=== PATIENT | female | born 1965 | race Caucasian/White ===

== ENCOUNTER 2016-09-30 11:56 | Emergency (ER) | payer MEDICARE ==
[~2016-09-30] VITALS: Ht 162.6 cm; Wt 59.0 kg
[2016-09-30 12:04] VITALS: BP 125/73; PULSE 100; RESP 16; TEMP 97.7; O2SAT 96
--- NOTE | 2016-09-30 12:08 | PD ---
Physical Exam Time Seen by Provider: 12:07 Narrative 51 y/o female presents for evaluation of L foot/leg pain/swelling for the past few days. Denies sob, fevers, chills. Vital signs reviewed. Seen at triage desk. Awaiting bed placement. Data Data Last Documented VS Vital Signs Date Time Temp Pulse Resp B/P Pulse Ox O2 Delivery O2 Flow Rate FiO2 09/30/16 12:04 97.7 100 16 125/73 96 Room Air [facility] Medical Record Reviewed: Yes Supervised Visit with TERELL: Cedric Zeng September 30, 2016 12:08
[2016-09-30] MEDS ORDERED: HALD50IN IM (12:57)
[2016-09-30] MEDS ORDERED: LEXA10TA PO (12:57)
[2016-09-30] MEDS ORDERED: CLINDAMYCIN INJ 600 MG in SODIUM CHLORIDE 0.9% INJ 100 ML IV ONE (13:45)
--- NOTE | 2016-09-30 14:13 | RADRPT ---
EXAM DATE/TIME: 09/30/2016 13:57 [facility] COMPARISON: No previous studies available for comparison. INDICATIONS : Left leg swelling. MEDICAL HISTORY : Hypertension. SURGICAL HISTORY : None. ENCOUNTER: Initial ACUITY: 2 day PAIN SCORE: 0/10 LOCATION: Left leg. TECHNIQUE: Venous ultrasound of the leg was performed from the inguinal ligament to the proximal calf. Real-woody e, color Doppler and spectral tracing, compression and augmentation techniques were used. FINDINGS: There is normal compressibility of the deep venous system from the inguinal region to the proximal ca lf. No echogenic clot is seen in the lumen of the common femoral, femoral, popliteal, and posterior tibial veins. There is a normal response of the venous system to proximal and distal augmentation an d respiration. CONCLUSION: No DVT left leg. Donnie Robledo MD on September 30, 2016 at 14:11 Board Certified Radiologist. This report was verified electronically.
--- NOTE | 2016-09-30 14:23 | PD ---
HPI Chief Complaint: Edema Time Seen by Provider: 12:46 Travel History International Travel<30 days: No Contact w/Intl Traveler<30days: No Traveled to known affect area: No History of Present Illness HPI So 51 year-old woman presents to the emergency department complaining of left foot pain and swelling for the past several days. She's been walking a lot on it. She lives in [place] but states she staying with some man down her wishes no other houses. She's not had foot problems before. She been more painful red and swollen and so she came to the emergency department. No fevers or chills. No other complaints. History Past Medical History Tetanus Vaccination: Unknown Influenza Vaccination: No Past Surgical History Surgical History: No Previous Surgery Social History Alcohol Use: Yes (OCC) Tobacco Use: Yes (1/2PPD) Allergies-Medications (Allergen,Severity, Reaction): Coded Allergies: No Known Allergies (Unverified , 09/30/16) Reported Meds & Prescriptions Reported Meds & Active Scripts Active Reported Lexapro (Escitalopram Oxalate) 10 Mg Tab 10 Mg PO DAILY Haldol Decanoate Inj (Haloperidol Decanoate) 50 Mg/Ml Inj 50 Mg IM Q28D Review of Systems Except as stated in HPI: all other systems reviewed are Neg Physical Exam Narrative GENERAL: 51 year-old woman, no acute distress. SKIN: Warm and dry. CARDIOVASCULAR: Warm and well perfused. RESPIRATORY: Normal rate and effort. MUSCULOSKELETAL: Left foot is edematous and red with some tracking erythema up into the calf. On the sole of the foot there is a small blister with the ulceration in the skin's a little bit macerated near this ulceration. NEUROLOGICAL: Awake and alert. No gross deficits. Data Data Last Documented VS Vital Signs Date Time Temp Pulse Resp B/P Pulse Ox O2 Delivery O2 Flow Rate FiO2 09/30/16 12:45 Room Air 09/30/16 12:04 97.7 100 16 125/73 96 Orders Foot, Complete ([id number]) (09/30/16 ) Us Leg Venous Doppler (09/30/16 ) Complete Blood Count With Diff (09/30/16 13:36) Comprehensive Metabolic Panel (09/30/16 13:36) Iv Access Insert/Monitor (09/30/16 13:36) Clindamycin Inj (Cleocin Inj) (09/30/16 13:45) Westergren Sedimentation Rate (09/30/16 13:37) C-Reactive Protein (Crp) (09/30/16 14:15) Labs Laboratory Tests Test 09/30/16 14:15 White Blood Count 7.0 TH/MM3 Red Blood Count 3.98 MIL/MM3 Hemoglobin 12.4 GM/DL Hematocrit 37.3 % Mean Corpuscular Volume 93.7 FL Mean Corpuscular Hemoglobin 31.3 PG Mean Corpuscular Hemoglobin 33.4 % Concent Red Cell Distribution Width 13.6 % Platelet Count 320 TH/MM3 Mean Platelet Volume 7.0 FL Neutrophils (%) (Auto) 62.6 % Lymphocytes (%) (Auto) 23.2 % Monocytes (%) (Auto) 12.7 % Eosinophils (%) (Auto) 1.1 % Basophils (%) (Auto) 0.4 % Neutrophils # (Auto) 4.4 TH/MM3 Lymphocytes # (Auto) 1.6 TH/MM3 Monocytes # (Auto) 0.9 TH/MM3 Eosinophils # (Auto) 0.1 TH/MM3 Basophils # (Auto) 0.0 TH/MM3 CBC Comment DIFF FINAL Differential Comment Erythrocyte Sedimentation Rate 36 mm/hr Sodium Level 138 MEQ/L Potassium Level 3.7 MEQ/L Chloride Level 104 MEQ/L Carbon Dioxide Level 27.6 MEQ/L Anion Gap 6 MEQ/L Blood Urea Nitrogen 5 MG/DL Creatinine 0.58 MG/DL Estimat Glomerular Filtration 110 ML/MIN Rate Random Glucose 100 MG/DL Calcium Level 9.2 MG/DL Total Bilirubin 0.3 MG/DL Aspartate Amino Transf 21 U/L (AST/SGOT) Alanine Aminotransferase 56 U/L (ALT/SGPT) Alkaline Phosphatase 125 U/L C-Reactive Protein 2.14 MG/DL Total Protein 7.4 GM/DL Albumin 3.5 GM/DL [facility] Medical Decision Making Medical Screen Exam Complete: Yes Emergency Medical Condition: Yes Interpretation(s) LABS: CBC is unremarkable Sedimentation rate 36 CMP is unremarkable CRP 2.14 Ultrasound negative My review of foot x-ray: Negative Differential Diagnosis Cellulitis, DVT, osteomyelitis, other Narrative Course Medical decision making This is a 51 year-old woman presents emergency department for left foot pain swelling and redness streaking up into the leg some. She looks disheveled homeless but she states she has a place to stay. She'll need to keep this leg elevated if she is discharged for outpatient therapy. She states that she is able to do this and can keep it elevated for the next 48 hours without difficulty. We'll check x-ray, labs, rule out DVT, reassess. Diagnosis Primary Impression: Left leg cellulitis Additional Instructions: Take antibiotics as prescribed. Keep your leg elevated above your heart for at least 48 hours. Take Naprosyn as needed for pain. Return to the emergency department for any new or worsening symptoms. Med/Other Pt SpecificInfo: Prescription(s) given Scripts Sulfamethoxazole-Trimethoprim (Bactrim DS)800-160 Mg Tab1 Tab PO BID #20 TAB Ref 0 Prov:Pedro Hull MD 09/30/16 Cephalexin (Keflex)500 Mg [id number] Mg PO Q8H #30 CAP Ref 0 Prov:Pedro Hull MD 09/30/16 Disposition: 01 DISCHARGE HOME Condition: Stable Pedro Hull MD September 30, 2016 14:23
[2016-09-30 14:31] LABS: AUTOMATED NEUTROPHIL # 4.4 TH/MM3 (1.8-7.7); BASOPHIL % 0.4 % (0.0-2.0); EOSINOPHIL # 0.1 TH/MM3 (0-0.4); EOSINOPHIL % 1.1 % (0.0-4.0); HEMATOCRIT 37.3 % (35.0-46.0); HEMO FLAGS DIFF FINAL; LYMPH % 23.2 % (9.0-44.0); LYMPHOCYTE # 1.6 TH/MM3 (1.0-4.8); MEAN CELL VOLUME 93.7 FL (80.0-100.0); MEAN CORPUSCULAR HEMOGLOBIN 31.3 PG (27.0-34.0); MEAN CORPUSCULAR HGB CONC 33.4 % (32.0-36.0); MONO % 12.7 % (0.0-8.0); NEUT % 62.6 % (16.0-70.0); PLATELET COUNT 320 TH/MM3 (150-450); RED BLOOD COUNT 3.98 MIL/MM3 (4.00-5.30); RED CELL DISTRIBUTION WIDTH 13.6 % (11.6-17.2)
[2016-09-30 14:46] LABS: ALT (GPT) 56 U/L (10-53); ANION GAP 6 MEQ/L (5-15); AST (GOT) 21 U/L (15-37); BICARBONATE 27.6 MEQ/L (21.0-32.0); BLOOD UREA NITROGEN 5 MG/DL (7-18); CHLORIDE 104 MEQ/L (98-107); GLOMERULAR FILTRATION RATE 110 ML/MIN (>89); POTASSIUM 3.7 MEQ/L (3.5-5.1); SODIUM (NA) 138 MEQ/L (136-145)
[2016-09-30 14:49] LABS: ALKALINE PHOSPHATASE 125 U/L (45-117); TOTAL BILIRUBIN ADULT 0.3 MG/DL (0.2-1.0)
[2016-09-30] MEDS ORDERED: CEPH-460 PO (15:26)
[2016-09-30] MEDS ORDERED: BACT800T5 PO (15:26)
--- NOTE | 2016-09-30 15:32 | RADRPT ---
EXAM DATE/TIME: 09/30/2016 14:27 [facility] COMPARISON: No previous studies available for comparison. INDICATIONS : Left foot swelling for 2 days. MEDICAL HISTORY : Hypertension. SURGICAL HISTORY : None. ENCOUNTER: Initial ACUITY: 2 days PAIN SCORE: 3/10 LOCATION: Left foot. FINDINGS: 3 views of the foot reveal a 1 x 3 mm radiopaque density consistent with the history of a shell. This is either on the skin surface or immediately deep to the skin surface within the plantar soft tissue s at the level of the midfoot. It is only seen on the lateral projection. No definitive correlate on the frontal views. No fracture or dislocation. No air within the soft tissues. Dorsal soft tissue swe lling noted. CONCLUSION: Tiny radiopaque foreign body within the superficial subcutaneous tissues of the plantar soft tissues. Dorsal soft tissue swelling. Curt Das Jr., MD on September 30, 2016 at 15:27 Board Certified Radiologist. This report was verified electronically.
== END 2016-09-30 16:50 | disposition home or self-care (01) ==
LOC: NEPD 11:56
DX: L03.116 Cellulitis of left lower limb (principal); F17.210 Nicotine dependence, cigarettes, uncomplicated
CPT/HCPCS: 73630; 80053; 85025; 85652; 86140; 93971; 96365

== ENCOUNTER 2016-10-01 00:52 | Emergency (ER) | payer MEDICARE ==
[~2016-10-01] VITALS: Ht 162.6 cm; Wt 60.0 kg
[~2016-10-01 00:52] MED LIST: BACT800T5 PO; CEPH-460 PO; HALD50IN IM; LEXA10TA PO
[2016-10-01 00:54] VITALS: BP 138/79; PULSE 84; RESP 16; TEMP 98.2; O2SAT 97
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
[2016-10-01] MEDS ORDERED: SULFAMETHOXAZOLE-TRIMETHOPRIM DS 800-160 MG TAB PO ONE (01:15)
[2016-10-01] MEDS ORDERED: CEPHALEXIN MONOHYDRATE 500 MG CAP PO ONE (01:15)
== END 2016-10-01 01:29 | disposition home or self-care (01) ==
LOC: NEPK 00:52
DX: L03.116 Cellulitis of left lower limb (principal); M54.9 Dorsalgia, unspecified; I10 Essential (primary) hypertension; F17.200 Nicotine dependence, unspecified, uncomplicated; Z76.5 Malingerer [conscious simulation]; Z86.59 Personal history of other mental and behavioral disorders
CPT/HCPCS: 99283

== ENCOUNTER 2016-11-03 17:10 | Emergency (ER) | payer MEDICARE ==
[~2016-11-03] VITALS: Ht 165.1 cm; Wt 60.0 kg
[2016-11-03 17:14] VITALS: BP 146/72; PULSE 98; RESP 16; TEMP 98.6; O2SAT 98
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
[2016-11-03 21:04] VITALS: BP 137/78; PULSE 100; RESP 18; O2SAT 97; O2SAT 98
[2016-11-03] MEDS ORDERED: CEPH-460 PO (21:11)
[2016-11-03] MEDS ORDERED: BACT800T5 PO (21:11)
[2016-11-03] MEDS ORDERED: SULFAMETHOXAZOLE-TRIMETHOPRIM DS 800-160 MG TAB PO ONE (21:15)
[2016-11-03] MEDS ORDERED: ceFAZolin 2 GM PREMIX 50 ML IV ONE (21:15)
[2016-11-03] MEDS ORDERED: DIPHTH/TETANUS/ACEL PERTUSSIS (BOOSTER) 0.5 ML VIAL/PFS IM ONE (21:15)
[2016-11-03] MEDS ORDERED: SODIUM CHLOR 0.9% 1000 ML INJ 1,000 ML IV ONE (21:15)
[2016-11-03 21:41] LABS: AUTOMATED NEUTROPHIL # 3.4 TH/MM3 (1.8-7.7); BASOPHIL % 0.6 % (0.0-2.0); EOSINOPHIL # 0.1 TH/MM3 (0-0.4); EOSINOPHIL % 2.1 % (0.0-4.0); LYMPH % 24.8 % (9.0-44.0); LYMPHOCYTE # 1.4 TH/MM3 (1.0-4.8); MEAN CELL VOLUME 91.1 FL (80.0-100.0); MEAN CORPUSCULAR HEMOGLOBIN 31.3 PG (27.0-34.0); MEAN CORPUSCULAR HGB CONC 34.4 % (32.0-36.0); MONO % 13.8 % (0.0-8.0); NEUT % 58.7 % (16.0-70.0); PLATELET COUNT 297 TH/MM3 (150-450); RED BLOOD COUNT 3.84 MIL/MM3 (4.00-5.30); RED CELL DISTRIBUTION WIDTH 13.6 % (11.6-17.2); WHITE BLOOD COUNT 5.7 TH/MM3 (4.0-11.0)
[2016-11-03 21:47] LABS: HEMO FLAGS AUTO DIFF
[2016-11-03 22:01] LABS: ALT (GPT) 36 U/L (10-53); ANION GAP 8 MEQ/L (5-15); AST (GOT) 18 U/L (15-37); BICARBONATE 24.6 MEQ/L (21.0-32.0); BLOOD UREA NITROGEN 5 MG/DL (7-18); CHLORIDE 106 MEQ/L (98-107); GLOMERULAR FILTRATION RATE 95 ML/MIN (>89); POTASSIUM 3.4 MEQ/L (3.5-5.1); SODIUM (NA) 139 MEQ/L (136-145)
[2016-11-03 22:11] LABS: ALKALINE PHOSPHATASE 105 U/L (45-117); TOTAL BILIRUBIN ADULT 0.2 MG/DL (0.2-1.0)
[2016-11-03 22:34] LABS: EOSINOPHILS 5 % (0-4); METAMYELOCYTES 2 % (0-1); MYELOCYTES 1 % (0-0); NEUTROPHIL # MANUAL DIFF 3.6 TH/MM3 (1.8-7.7); POLYS (SEG NEUTROPHILS) 61 % (16-70); WBC DIFF SAMPLE 100
[2016-11-03 22:35] LABS: OVALOCYTES 1+ (NORMAL)
[2016-11-03 22:36] LABS: PLATELET ESTIMATE SMEAR NORMAL (NORMAL); PLATELET MORPHOLOGY NORMAL (NORMAL); SCAN/DIFF FINAL DIFF MANUAL
== END 2016-11-03 23:15 | disposition home or self-care (01) ==
LOC: NEPC 17:10
DX: R60.0 Localized edema (principal); L03.115 Cellulitis of right lower limb; I10 Essential (primary) hypertension; F17.210 Nicotine dependence, cigarettes, uncomplicated; R00.0 Tachycardia, unspecified; L55.0 Sunburn of first degree; Z59.0 Homelessness; Z23 Encounter for immunization
CPT/HCPCS: 80053; 83880; 84443; 85007; 85027; 86140; 90471; 90715; 96365; 99284; J0690; J7030

== ENCOUNTER 2016-11-17 11:42 | Emergency (ER) | payer MEDICARE ==
[~2016-11-17] VITALS: Ht 162.6 cm; Wt 65.0 kg
[~2016-11-17 11:42] MED LIST changes: -LEXA10TA PO
[2016-11-17 11:47] VITALS: BP 134/62; PULSE 89; RESP 16; TEMP 98.6; O2SAT 98
--- NOTE | 2016-11-17 12:23 | PD ---
HPI Chief Complaint: Medication Refill Request Time Seen by Provider: 12:19 Travel History International Travel<30 days: No Contact w/Intl Traveler<30days: No Traveled to known affect area: No History of Present Illness HPI 51-year-old female with history of bipolar and schizophrenia presents the emergency department requesting refills of her medications. Patient is requesting refills of her Lexapro 10 mg daily, and her once monthly 50 mg Haldol dose IM. She is also requesting prescriptions for Keflex and Bactrim which she was given at her last visit on October 29. She states she lost her prescriptions at that time for the cellulitis in her lower extremities. She states it hasn't really gotten worse or better. She is also requesting a refill on her Xanax for her anxiety. Patient is homeless, and used to see a psychiatrist in [place]. He is not established with a local primary care physician or psychiatrist as previously instructed to her last visit. She states she lost the information for the primary care office. She states no other acute medical issues. She has no known drug allergies. PFSH Past Medical History Bipolar Disorder: Yes Anxiety: Yes Depression: Yes Diminished Hearing: No Hypertension: Yes Psychiatric: Yes Immunizations Current: No Menopausal: Yes Social History Alcohol Use: Yes (OCC) Tobacco Use: Yes (one pack per day) Substance Use: No Allergies-Medications (Allergen,Severity, Reaction): Coded Allergies: No Known Allergies (Unverified , 11/03/16) Reported Meds & Prescriptions Reported Meds & Active Scripts Active Keflex (Cephalexin) 500 Mg Cap 500 Mg PO Q8H Bactrim DS (Sulfamethoxazole-Trimethoprim) 800-160 Mg Tab 1 Tab PO BID Reported Haldol Decanoate Inj (Haloperidol Decanoate) 50 Mg/Ml Inj 50 Mg IM Q28D Review of Systems Except as stated in HPI: all other systems reviewed are Neg General / Constitutional: No: Fever Eyes: No: Visual changes HENT: No: Headaches Cardiovascular: No: Chest Pain or Discomfort Respiratory: No: Shortness of Breath Gastrointestinal: No: Abdominal Pain Genitourinary: No: Dysuria Musculoskeletal: No: Pain Skin: No Rash Neurologic: No: Weakness Psychiatric: Positive: Anxiety, Depression, Mood Disorder, No: Suicidal Ideations, Homicidal Ideation Endocrine: No: Polydipsia Hematologic/Lymphatic: No: Easy Bruising Physical Exam Narrative GENERAL: Patient appears in no acute distress and is pleasant. SKIN: Warm and dry. Normal color. Normal turgor. Both lower extremities show some mild erythema which appears consistent with sun exposure. He is however somewhat tender and warm to touch. No other focal areas of infection are noted distal time. HEAD: Atraumatic. Normocephalic. EYES: Pupils equal and round. No scleral icterus. No injection or drainage. ENT: No nasal bleeding or discharge. Mucous membranes pink and moist. Pharynx is clear. Airway is patent NECK: Trachea midline. Supple nontender. CARDIOVASCULAR: Regular rate and rhythm. RESPIRATORY: No accessory muscle use. Clear to auscultation. Breath sounds equal bilaterally. MUSCULOSKELETAL: Extremities without clubbing, cyanosis, or edema. No obvious deformities. NEUROLOGICAL: Awake and alert. No obvious cranial nerve deficits. Motor grossly within normal limits. Five out of 5 muscle strength in the arms and legs. Normal speech. PSYCHIATRIC: Appropriate mood and affect; insight and judgment normal. Data Data Last Documented VS Vital Signs Date Time Temp Pulse Resp B/P Pulse Ox O2 Delivery O2 Flow Rate FiO2 11/17/16 11:47 98.6 89 16 134/62 98 MDM Medical Decision Making Medical Screen Exam Complete: Yes Emergency Medical Condition: Yes Medical Record Reviewed: Yes Differential Diagnosis Lower extremity cellulitis. Bipolar disorder. Schizophrenia. Medication refill. Narrative Course Patient's medically stable at time of exam. Patient is given a prescription for Bactrim DS twice a day 7 days as well as Keflex 500 mg 3 times a day 7 days. He agreed to refill the patient's Lexapro 10 mg daily. Patient will have to follow up with local primary care physician for her Xanax or Haldol injection. Information for local primary care physician is given. Patient can follow-up here if worsening symptoms develop as needed. Diagnosis Primary Impression: Cellulitis Qualified Code: L03.90 - Cellulitis, unspecified cellulitis site Additional Impression: Mood disorder Referrals: [facility] (Out patient) [facility] Patient Instructions: Cellulitis (DC), General Instructions Additional Instructions: Patient is given a prescription for Bactrim DS twice a day 7 days as well as Keflex 500 mg 3 times a day 7 days. He agreed to refill the patient's Lexapro 10 mg daily. Patient will have to follow up with local primary care physician for her Xanax or Haldol injection. Information for local primary care physician is given. Patient can follow-up here if worsening symptoms develop as needed. Med/Other Pt SpecificInfo: Prescription(s) given Disposition: 01 DISCHARGE HOME Condition: Stable Joseph Florence Nov 17, 2016 12:23
[2016-11-17] MEDS ORDERED: BACT800T5 PO (12:24)
[2016-11-17] MEDS ORDERED: CEPH-460 PO (12:24)
[2016-11-17] MEDS ORDERED: LEXA10TA PO (12:24)
== END 2016-11-17 12:36 | disposition left against medical advice (07) ==
LOC: NEPK 11:42
DX: L03.116 Cellulitis of left lower limb (principal); L03.115 Cellulitis of right lower limb; F31.9 Bipolar disorder, unspecified; F17.210 Nicotine dependence, cigarettes, uncomplicated; I10 Essential (primary) hypertension; Z59.0 Homelessness
CPT/HCPCS: 99281

== ENCOUNTER 2016-11-27 02:12 | Emergency (ER) | payer MEDICARE ==
[~2016-11-27] VITALS: Ht 162.6 cm; Wt 65.0 kg
[~2016-11-27 02:12] MED LIST changes: +LEXA10TA PO
[2016-11-27 02:14] VITALS: BP 151/72; PULSE 100; RESP 16; TEMP 98.7; O2SAT 96
--- NOTE | 2016-11-27 02:59 | PD ---
HPI Chief Complaint: Skin Problem Time Seen by Provider: 02:55 Travel History International Travel<30 days: No Contact w/Intl Traveler<30days: No Traveled to known affect area: No History of Present Illness HPI 51-year-old white female presents to emergency department by EMS with complaints of possible cellulitis to her left foot. She states that she has had in the past. She denies any fever chills. No discharge. Pain is mild. No alleviating factors. PFSH Past Medical History Bipolar Disorder: Yes Anxiety: Yes Depression: Yes Diminished Hearing: No Hypertension: Yes Psychiatric: Yes Immunizations Current: No ?: Not Menopausal: Yes Social History Alcohol Use: Yes (OCC) Tobacco Use: Yes (one pack per day) Substance Use: No Allergies-Medications (Allergen,Severity, Reaction): Coded Allergies: No Known Allergies (Unverified , 11/27/16) Reported Meds & Prescriptions Reported Meds & Active Scripts Active Lexapro (Escitalopram Oxalate) 10 Mg Tab 10 Mg PO DAILY Keflex (Cephalexin) 500 Mg Cap 500 Mg PO Q8H Bactrim DS (Sulfamethoxazole-Trimethoprim) 800-160 Mg Tab 1 Tab PO BID Reported Haldol Decanoate Inj (Haloperidol Decanoate) 50 Mg/Ml Inj 50 Mg IM Q28D Review of Systems Except as stated in HPI: all other systems reviewed are Neg Physical Exam Narrative GENERAL: This is a well-nourished, well-developed patient, in no apparent distress. SKIN: No rashes, ecchymoses or lesions. Warm and dry. HEAD: Atraumatic. Normocephalic. EYES: PERRL, EOMI, no discharge or injection. No scleral icterus. EARS: Clear NOSE: Nasal turbinates appear normal. THROAT: Mucosa pink and moist. Airway patent. NECK: Trachea midline. supple, moves head freely. LUNGS: Clear to auscultation. CV: Regular in rhythm. ABDOMEN: Soft nontender. EXT: No clubbing cyanosis or edema. There is a mild scaly dermatitis between her toes but nothing on the dorsum of her feet. Data Data Last Documented VS Vital Signs Date Time Temp Pulse Resp B/P Pulse Ox O2 Delivery O2 Flow Rate FiO2 11/27/16 02:14 98.7 100 16 151/72 96 Room Air MDM Medical Decision Making Medical Screen Exam Complete: Yes Emergency Medical Condition: Yes Medical Record Reviewed: Yes Differential Diagnosis MDM: High Differential diagnoses: Abscess, folliculitis, cellulitis, lymphangitis, abrasion, contact dermatitis, tinea Narrative Course This is a 51-year-old white female who is been here in the emergency department on 2 prior occasions with complaints of cellulitis. There has not been any obvious clinical or laboratory findings consistent with cellulitis on her 2 visits. A discussion with the nurse indicates that the patient had informed the triage nurse that she is actually looking for a place to sleep she is currently homeless. She also was hoping to get medications filled and something to eat. Diagnosis Primary Impression: tinea pedis Additional Impression: Malingering Patient Instructions: General Instructions Additional Instructions: Rest. Elevation. Lamisil AT Tylenol or Advil for pain. Follow-up with a medical doctor in 1-to 2 weeks. Med/Other Pt SpecificInfo: Wound Care Disposition: 01 DISCHARGE HOME Condition: Stable Taj Anderson Nov 27, 2016 02:59
== END 2016-11-27 03:02 | disposition home or self-care (01) ==
LOC: NEPD 02:12
DX: B35.3 Tinea pedis (principal); F31.9 Bipolar disorder, unspecified; F41.9 Anxiety disorder, unspecified; I10 Essential (primary) hypertension; F17.200 Nicotine dependence, unspecified, uncomplicated; Z76.5 Malingerer [conscious simulation]; Z59.0 Homelessness; Z79.899 Other long term (current) drug therapy
CPT/HCPCS: 99283

== ENCOUNTER 2017-02-11 10:33 | Emergency (ER) | payer MEDICARE, OTHER ==
[~2017-02-11] VITALS: Ht 162.6 cm; Wt 79.0 kg
[2017-02-11 10:34] VITALS: BP 136/73; PULSE 95; RESP 20; TEMP 99.2; O2SAT 98
[2017-02-11] MEDS ORDERED: VIST25CA PO (10:55)
--- NOTE | 2017-02-11 10:56 | PD ---
HPI Chief Complaint: Skin Problem Time Seen by Provider: 10:48 Travel History International Travel<30 days: No Contact w/Intl Traveler<30days: No Traveled to known affect area: No History of Present Illness HPI The patient is a 52-year-old female who presents to the emergency department for bedbug bites. The patient states she noticed several bites 2 days ago upon wakening on a friend's couch. The patient states that over the last 2 mornings when she awakens in the morning she notices more bites on the arms and legs. The bites mostly spare the area where she wears shorts and a T- shirt while sleeping. She does note the bites are somewhat pruritic. The patient states her roommate sleeps on a bed and does not have any similar bites. She denies any other exposure to possible bites except for mosquitoes. She denies taking any new medications. She denies any shortness of breath, tongue swelling, lip swelling, wheezing, nausea, or vomiting. Symptoms are mild , possibly exacerbated after exposure to bedbug bites, and there are no current alleviating factors. PFSH Past Medical History Bipolar Disorder: Yes Anxiety: Yes Depression: Yes Diminished Hearing: No Hypertension: Yes Psychiatric: Yes Immunizations Current: No Tetanus Vaccination: < 5 Years Influenza Vaccination: No ?: Not Menopausal: Yes Past Surgical History Surgical History: No Previous Surgery Social History Alcohol Use: Yes (OCC) Tobacco Use: Yes (one pack per day) Substance Use: No (pt denies) Allergies-Medications (Allergen,Severity, Reaction): Coded Allergies: No Known Allergies (Unverified , 02/11/17) Reported Meds & Prescriptions Reported Meds & Active Scripts Active Reported Haldol Decanoate Inj (Haloperidol Decanoate) 50 Mg/Ml Inj 50 Mg IM Q28D Review of Systems Except as stated in HPI: all other systems reviewed are Neg General / Constitutional: No: Fever HENT: No: Lightheadedness Respiratory: No: Shortness of Breath Gastrointestinal: No: Nausea, Vomiting Skin: Positive Rash, Positive Itching Physical Exam Narrative GENERAL: Awake, alert, pleasant 52-year-old female who appears her stated age and is in no acute respiratory distress. SKIN: Focused skin assessment warm/dry. Patient has multiple erythematous maculopapular lesions noticed on the extensor surface of the arms, back, and legs. There is mostly sparing of the chest wall and inguinal region, however, there are a few bites noted on the buttocks. The exam was performed in the presence of a female nurse. HEAD: Atraumatic. Normocephalic. EYES: Pupils equal and round. No scleral icterus. No injection or drainage. ENT: No nasal bleeding or discharge. Mucous membranes pink and moist. NECK: Trachea midline. No JVD. MUSCULOSKELETAL: No obvious deformities. No clubbing. No cyanosis. No edema. NEUROLOGICAL: Awake and alert. No obvious cranial nerve deficits. Motor grossly within normal limits. Normal speech. PSYCHIATRIC: Appropriate mood and affect; insight and judgment normal. Data Data Last Documented VS Vital Signs Date Time Temp Pulse Resp B/P (MAP) Pulse Ox O2 Delivery O2 Flow Rate FiO2 02/11/17 10:42 89 16 02/11/17 10:34 99.2 136/73 (94) 98 Room Air MDM Medical Decision Making Medical Screen Exam Complete: Yes Emergency Medical Condition: Yes Medical Record Reviewed: Yes Differential Diagnosis Differential diagnosis includes bedbug bites, mosquito bites, allergic reaction , uric area, dermatitis. Narrative Course The patient states that she has had exposure to a bedbug bites, her exam would be consistent with possible bedbug bites. She is advised to have the landlord have an cyber systems engineer come and evaluate her apartment. The patient will be prescribed Vistaril as needed for itching. She is stable for outpatient follow- up. Diagnosis Primary Impression: Bedbug bite Qualified Codes: W57.XXXA - Bitten or stung by nonvenomous insect and other nonvenomous arthropods, initial encounter Patient Instructions: General Instructions Additional Instructions: Vistaril as needed for itching. Have an cyber systems engineer evaluate the apartment. Monitor for secondary signs of infection. Med/Other Pt SpecificInfo: Prescription(s) given Scripts Hydroxyzine Pamoate (Vistaril) 25 Mg Cap 25 MG PO Q6H Y for ITCHING, #20 CAP 0 Refills Prov: Kar Carvalho MD 02/11/17 Disposition: 01 DISCHARGE HOME Condition: Stable Kar Carvalho MD Feb 11, 2017 10:56
[2017-02-11 11:00] VITALS: BP 120/77; TEMP 97.8
[2017-02-11] MEDS ORDERED: hydrOXYzine PAMOATE 25 MG CAP PO ONE (11:00)
== END 2017-02-11 11:00 | disposition home or self-care (01) ==
LOC: NEPD 10:33
DX: S40.862A Insect bite (nonvenomous) of left upper arm, initial encounter (principal); S40.861A Insect bite (nonvenomous) of right upper arm, initial encounter; S80.862A Insect bite (nonvenomous), left lower leg, initial encounter; S80.861A Insect bite (nonvenomous), right lower leg, initial encounter; S30.860A Insect bite (nonvenomous) of lower back and pelvis, initial encounter; F31.9 Bipolar disorder, unspecified; I10 Essential (primary) hypertension; F17.200 Nicotine dependence, unspecified, uncomplicated; W57.XXXA Bitten or stung by nonvenomous insect and other nonvenomous arthropods, initial encounter
CPT/HCPCS: 99283; Q0177

== ENCOUNTER 2017-08-07 04:44 | Inpatient (IN) | payer MEDICARE, OTHER ==
[~2017-08-07] VITALS: Ht 162.6 cm; Wt 53.6 kg
[~2017-08-07 04:44] MED LIST changes: -BACT800T5 PO; -CEPH-460 PO; -LEXA10TA PO; +VIST25CA PO
[2017-08-07 04:56] VITALS: BP 131/68; PULSE 120; RESP 17; TEMP 98.5; O2SAT 98
[2017-08-07] MEDS ORDERED: SODIUM CHLOR 0.9% 1000 ML INJ 1,000 ML IV ONE ×4 (05:00→08:30)
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
[2017-08-07 05:18] LABS: HEMATOCRIT 49.4 % (35.0-46.0); HEMOGLOBIN 17.1 GM/DL (11.6-15.3); MEAN CELL VOLUME 89.8 FL (80.0-100.0); MEAN CORPUSCULAR HEMOGLOBIN 31.2 PG (27.0-34.0); MEAN CORPUSCULAR HGB CONC 34.7 % (32.0-36.0); MEAN PLATELET VOLUME 8.2 FL (7.0-11.0); PLATELET COUNT 301 TH/MM3 (150-450); RED CELL DISTRIBUTION WIDTH 13.1 % (11.6-17.2); WHITE BLOOD COUNT 28.8 TH/MM3 (4.0-11.0)
[2017-08-07 05:45] LABS: ALBUMIN 3.9 GM/DL (3.4-5.0); ALKALINE PHOSPHATASE 105 U/L (45-117); ALT (GPT) 23 U/L (10-53); AST (GOT) 27 U/L (15-37); BICARBONATE 23.2 MEQ/L (21.0-32.0); BLOOD UREA NITROGEN 9 MG/DL (7-18); CALCIUM 9.8 MG/DL (8.5-10.1); CHLORIDE 97 MEQ/L (98-107); GLOMERULAR FILTRATION RATE 30 ML/MIN (>89); GLUCOSE,RANDOM 148 MG/DL (74-106); SODIUM (NA) 136 MEQ/L (136-145); TOTAL BILIRUBIN ADULT 0.7 MG/DL (0.2-1.0); TOTAL PROTEIN 7.9 GM/DL (6.4-8.2)
[2017-08-07] MEDS ORDERED: POTASSIUM CHLORIDE 20 MEQ CONTROLLED RELEASE TAB PO ONE (06:00)
[2017-08-07 06:10] LABS: BANDS 17 % (0-6); LYMPHOCYTES 3 % (9-44); METAMYELOCYTES 2 % (0-1); MONOCYTES 7 % (0-8); NEUTROPHIL # MANUAL DIFF 25.9 TH/MM3 (1.8-7.7); POLYS (SEG NEUTROPHILS) 71 % (16-70); TOXIC VACUOLATION PRESENT (NONE SEEN)
[2017-08-07 06:11] LABS: OVALOCYTES 1+ (NORMAL)
[2017-08-07 07:00] VITALS: BP 145/71; PULSE 95; RESP 16; TEMP 98.4; O2SAT 99
[2017-08-07] MEDS ORDERED: cefTRIAXone INJ 1,000 MG in SODIUM CHLORIDE 0.9% INJ 100 ML IV ONE (07:00)
[2017-08-07 08:43] LABS: BACTERIA, URINE RARE /hpf; BILIRUBIN, URINE NEG (NEG); BLOOD, URINE NEG (NEG); GLUCOSE,URINE NEG (NEG); KETONE, URINE 10 mg/dL (NEG); NITRITE,URINE NEG (NEG); PH, URINE 6.5 (5.0-8.5); SQUAMOUS EPITHELIAL CELL URINE 3 /hpf (0-5); URINE COLOR LIGHT-YELLOW (YELLW/STRAW); URINE LEUKOCYTE ESTERASE NEG (NEG)
[2017-08-07 09:46] LABS: AUTOMATED NEUTROPHIL # 13.8 TH/MM3 (1.8-7.7); BASOPHIL # 0.1 TH/MM3 (0-0.2); BASOPHIL % 0.8 % (0.0-2.0); EOSINOPHIL % 0.1 % (0.0-4.0); HEMATOCRIT 40.1 % (35.0-46.0); LYMPH % 3.6 % (9.0-44.0); LYMPHOCYTE # 0.5 TH/MM3 (1.0-4.8); MEAN CORPUSCULAR HGB CONC 34.8 % (32.0-36.0); MEAN PLATELET VOLUME 7.9 FL (7.0-11.0); MONOCYTE # 0.9 TH/MM3 (0-0.9); NEUT % 89.5 % (16.0-70.0); PLATELET COUNT 213 TH/MM3 (150-450); RED BLOOD COUNT 4.51 MIL/MM3 (4.00-5.30); RED CELL DISTRIBUTION WIDTH 12.9 % (11.6-17.2); WHITE BLOOD COUNT 15.4 TH/MM3 (4.0-11.0)
[2017-08-07 10:24] LABS: BANDS 7 % (0-6); LYMPHOCYTES 9 % (9-44); MONOCYTES 7 % (0-8); MYELOCYTES 1 % (0-0); NEUTROPHIL # MANUAL DIFF 12.9 TH/MM3 (1.8-7.7); POLYS (SEG NEUTROPHILS) 76 % (16-70)
--- NOTE | 2017-08-07 10:24 | PD ---
Physical Exam Date Seen by Provider: Aug 07, 2017 Time Seen by Provider: 10:22 Narrative I assumed care of this 52-year-old female changes shift at 0700 hrs. from Amrik Sellers PA-C. Please see his history and physical for review of history. Data Data Last Documented VS Vital Signs Date Time Temp Pulse Resp B/P (MAP) Pulse Ox O2 Delivery O2 Flow Rate FiO2 08/07/17 16:00 98.6 08/07/17 15:10 92 18 97 Room Air Orders Orders Complete Blood Count With Diff (08/07/17 04:57) Comprehensive Metabolic Panel (08/07/17 04:57) Thyroid Stimulating Hormone (08/07/17 04:57) Urinalysis - C+S If Indicated (08/07/17 04:57) Iv Access Insert/Monitor (08/07/17 04:57) Psych Screen (08/07/17 04:57) Drug Screen, Random Urine (08/07/17 04:57) Alcohol (Ethanol) (08/07/17 04:57) Sodium Chlor 0.9% 1000 Ml Inj (Ns 1000 M (08/07/17 05:00) Lactic Acid (08/07/17 05:50) Potassium Chloride (Kcl) (08/07/17 06:00) Sodium Chlor 0.9% 1000 Ml Inj (Ns 1000 M (08/07/17 07:00) Ceftriaxone Inj (Rocephin Inj) (08/07/17 07:00) Blood Culture (08/07/17 06:47) Cath For Specimen (08/07/17 06:47) Lactic Acid (08/07/17 09:00) Complete Blood Count With Diff (08/07/17 09:00) Sodium Chlor 0.9% 1000 Ml Inj (Ns 1000 M (08/07/17 07:00) Diet Regular Basic (08/07/17 Breakfast) Sodium Chlor 0.9% 1000 Ml Inj (Ns 1000 M (08/07/17 08:30) Ct Brain W/O Iv Contrast(Rout) (08/07/17 12:52) Ammonia (08/07/17 12:52) Comprehensive Metabolic Panel (08/07/17 14:53) Diet Regular Basic (08/07/17 Dinner) Lactulose Liq (Lactulose Liq) (08/07/17 16:00) Labs Laboratory Tests Test 08/07/17 05:10 08/07/17 06:00 08/07/17 08:15 08/07/17 09:31 White Blood Count 28.8 TH/MM3 15.4 TH/MM3 Red Blood Count 5.50 MIL/MM3 4.51 MIL/MM3 Hemoglobin 17.1 GM/DL 14.0 GM/DL Hematocrit 49.4 % 40.1 % Mean Corpuscular Volume 89.8 FL 89.0 FL Mean Corpuscular Hemoglobin 31.2 PG 31.0 PG Mean Corpuscular Hemoglobin Concent 34.7 % 34.8 % Red Cell Distribution Width 13.1 % 12.9 % Platelet Count 301 TH/MM3 213 TH/MM3 Mean Platelet Volume 8.2 FL 7.9 FL CBC Comment AUTO DIFF AUTO DIFF Differential Total Cells Counted 100 100 Neutrophils % (Manual) 71 % 76 % Band Neutrophils % 17 % 7 % Lymphocytes % 3 % 9 % Monocytes % 7 % 7 % Neutrophils # (Manual) 25.9 TH/MM3 12.9 TH/MM3 Metamyelocytes 2 % Differential Comment FINAL DIFF MANUAL FINAL DIFF MANUAL Toxic Vacuolation PRESENT Platelet Estimate NORMAL NORMAL Platelet Morphology Comment NORMAL NORMAL Ovalocytes 1+ Blood Urea Nitrogen 9 MG/DL Creatinine 1.80 MG/DL Random Glucose 148 MG/DL Total Protein 7.9 GM/DL Albumin 3.9 GM/DL Calcium Level 9.8 MG/DL Alkaline Phosphatase 105 U/L Aspartate Amino Transf (AST/SGOT) 27 U/L Alanine Aminotransferase (ALT/SGPT) 23 U/L Total Bilirubin 0.7 MG/DL Sodium Level 136 MEQ/L Potassium Level 2.8 MEQ/L Chloride Level 97 MEQ/L Carbon Dioxide Level 23.2 MEQ/L Anion Gap 16 MEQ/L Estimat Glomerular Filtration Rate 30 ML/MIN Thyroid Stimulating Hormone 3rd Gen 9.060 uIU/ML Ethyl Alcohol Level LESS THAN 3 MG/DL Lactic Acid Level 3.2 mmol/L 1.1 mmol/L Urine Color LIGHT-YELLOW Urine Turbidity CLEAR Urine pH 6.5 Urine Specific [place] 1.003 Urine Protein NEG mg/dL Urine Glucose (UA) NEG mg/dL Urine Ketones 10 mg/dL Urine Occult Blood NEG Urine Nitrite NEG Urine Bilirubin NEG Urine Urobilinogen LESS THAN 2.0 MG/DL Urine Leukocyte Esterase NEG Urine WBC 3 /hpf Urine Squamous Epithelial Cells 3 /hpf Urine Bacteria RARE /hpf Microscopic Urinalysis Comment CULT NOT INDICATED Urine Opiates Screen NEG Urine Barbiturates Screen NEG Urine Amphetamines Screen NEG Urine Benzodiazepines Screen NEG Urine Cocaine Screen NEG Urine Cannabinoids Screen NEG Neutrophils (%) (Auto) 89.5 % Lymphocytes (%) (Auto) 3.6 % Monocytes (%) (Auto) 6.0 % Eosinophils (%) (Auto) 0.1 % Basophils (%) (Auto) 0.8 % Neutrophils # (Auto) 13.8 TH/MM3 Lymphocytes # (Auto) 0.5 TH/MM3 Monocytes # (Auto) 0.9 TH/MM3 Eosinophils # (Auto) 0.0 TH/MM3 Basophils # (Auto) 0.1 TH/MM3 Myelocytes 1 % Test 08/07/17 13:10 Blood Urea Nitrogen 9 MG/DL Creatinine 0.70 MG/DL Random Glucose 112 MG/DL Total Protein 5.6 GM/DL Albumin 2.8 GM/DL Calcium Level 8.1 MG/DL Alkaline Phosphatase 80 U/L Aspartate Amino Transf (AST/SGOT) 23 U/L Alanine Aminotransferase (ALT/SGPT) 17 U/L Total Bilirubin 0.3 MG/DL Sodium Level 145 MEQ/L Potassium Level 3.3 MEQ/L Chloride Level 111 MEQ/L Carbon Dioxide Level 24.4 MEQ/L Anion Gap 10 MEQ/L Estimat Glomerular Filtration Rate 88 ML/MIN Ammonia 40 MCMOL/L [facility] Medical Record Reviewed: Yes Supervised Visit with TERELL: Yes Differential Diagnosis Psychosis. Sebastian act. Severe dehydration. Possible sepsis. Possible UTI. Narrative Course Urinalysis showed no signs of infection. Repeat CBC and lactic acid shows improvement secondary to hydration. Patient is not felt to have a bacterial sepsis. Patient is medically cleared for psychiatric evaluation. Patient arrived in J pod and was felt to need further workup by nursing staff there. Ammonia level was added as well as CT scan of the brain. CT scan was negative. Repeat CBC and CMP were improved with IV hydration. Creatinine improved with IV hydration. Patient was found to have ammonia level of 40. 1 dose of lactulose 30 mL's p.o. was ordered. Patient is still felt to be medically stable for psychiatric evaluation at this time Diagnosis Primary Impression: Medical clearance for psychiatric admission Condition: Stable Joseph Florence Aug 07, 2017 10:24
[2017-08-07 12:45] VITALS: BP 142/74; TEMP 98.4
[2017-08-07 15:10] VITALS: BP 152/75; PULSE 92; RESP 18; TEMP 96.9; O2SAT 97
--- NOTE | 2017-08-07 15:14 | RADRPT ---
EXAM DATE/TIME: 08/07/2017 14:55 [place] COMPARISON: No previous studies available for comparison. INDICATIONS : Altered mental status for one day. RADIATION DOSE: 56.35 CTDIvol (mGy) MEDICAL HISTORY : Hypertension. SURGICAL HISTORY : None. ENCOUNTER: Initial ACUITY: 1 day PAIN SCALE: 3/10 LOCATION: Bilateral cranial TECHNIQUE: Multiple contiguous axial images were obtained of the head. Using automated exposure control and adj ustment of the mA and/or kV according to patient size, radiation dose was kept as low as reasonably a chievable to obtain optimal diagnostic quality images. DICOM format image data is available electro nically for review and comparison. FINDINGS: CEREBRUM: The ventricles are normal for age. No evidence of midline shift, mass lesion, hemorrhage or acute in farction. No extra-axial fluid collections are seen. POSTERIOR FOSSA: The cerebellum and brainstem are intact. The 4th ventricle is midline. The cerebellopontine angle i s unremarkable. EXTRACRANIAL: The visualized portion of the orbits is intact. SKULL: The calvaria is intact. No evidence of skull fracture. CONCLUSION: No acute intracranial disease. Donnie Robledo MD on August 07, 2017 at 15:11 Board Certified Radiologist. This report was verified electronically.
[2017-08-07 15:57] LABS: ALBUMIN 2.8 GM/DL (3.4-5.0); ALKALINE PHOSPHATASE 80 U/L (45-117); ALT (GPT) 17 U/L (10-53); AST (GOT) 23 U/L (15-37); BICARBONATE 24.4 MEQ/L (21.0-32.0); BLOOD UREA NITROGEN 9 MG/DL (7-18); CALCIUM 8.1 MG/DL (8.5-10.1); CHLORIDE 111 MEQ/L (98-107); GLOMERULAR FILTRATION RATE 88 ML/MIN (>89); GLUCOSE,RANDOM 112 MG/DL (74-106); SODIUM (NA) 145 MEQ/L (136-145); TOTAL BILIRUBIN ADULT 0.3 MG/DL (0.2-1.0); TOTAL PROTEIN 5.6 GM/DL (6.4-8.2)
[2017-08-07 16:00] VITALS: TEMP 98.6
[2017-08-07] MEDS ORDERED: LACTULOSE SYRUP 20 GM/30 ML CUP PO ONE (16:00)
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
[2017-08-07] MEDS ORDERED: MAGNESIUM HYDROXIDE SUSP 30 ML CUP PO PRN (20:00)
[2017-08-07] MEDS ORDERED: HALOPERIDOL 5 MG TAB PO ONE (20:00)
[2017-08-07] MEDS ORDERED: diphenhydrAMINE HCL 50 MG CAP PO ONE (20:00)
[2017-08-07] MEDS: NICOTINE 21 MG/24 HR PATCH T-DERMAL SCH (20:00)
[2017-08-07] MEDS ORDERED: ALUMINUM/MAGNESIUM/SIMETH 30 ML CUP PO PRN (20:00)
[2017-08-07 23:27] VITALS: BP 101/55; PULSE 90; RESP 18; TEMP 98.2; O2SAT 98
[2017-08-08] MEDS ORDERED: OLANZapine IM 10 MG VIAL IM ONE (01:30)
[2017-08-08] MEDS ORDERED: SODIUM CHLORID 0.9% 500 ML INJ 500 ML IV ONE (08:00)
[2017-08-08] MEDS ORDERED: POTASSIUM CHLORIDE 10 MEQ CONTROLLED RELEASE TAB PO ONE ×2 (08:30→16:30)
[2017-08-08] MEDS: NICOTINE 21 MG/24 HR PATCH T-DERMAL SCH (09:00)
[2017-08-08] MEDS: REMOVE OLD PATCH T-DERMAL SCH (09:00)
[2017-08-08] MEDS ORDERED: LORazepam 1 MG TAB PO PRN (09:00)
[2017-08-08] MEDS: HALOPERIDOL 5 MG TAB PO SCH ×2 (09:00→20:38)
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
--- NOTE | 2017-08-08 09:12 | RADRPT ---
EXAM DATE/TIME: 08/08/2017 08:13 [facility] COMPARISON: No previous studies available for comparison. INDICATIONS : Shortness of breath. MEDICAL HISTORY : Hypertension. SURGICAL HISTORY : None. ENCOUNTER: Initial ACUITY: 1 day PAIN SCORE: Non-responsive. LOCATION: Bilateral chest FINDINGS: A single view of the chest demonstrates the lungs to be symmetrically aerated without evidence of mas s, infiltrate or effusion. The cardiomediastinal contours are unremarkable. Osseous structures are intact. Old rib fractures are noted involving the right lower rib cage. CONCLUSION: No acute disease. Simone Short MD on August 08, 2017 at 9:08 Board Certified Radiologist. This report was verified electronically.
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
[2017-08-08 12:57] LABS: AUTOMATED NEUTROPHIL # 4.9 TH/MM3 (1.8-7.7); BASOPHIL % 0.4 % (0.0-2.0); EOSINOPHIL % 0.4 % (0.0-4.0); HEMATOCRIT 35.5 % (35.0-46.0); HEMOGLOBIN 12.8 GM/DL (11.6-15.3); LYMPH % 17.7 % (9.0-44.0); LYMPHOCYTE # 1.2 TH/MM3 (1.0-4.8); MEAN CELL VOLUME 90.4 FL (80.0-100.0); MEAN CORPUSCULAR HEMOGLOBIN 32.5 PG (27.0-34.0); MEAN CORPUSCULAR HGB CONC 35.9 % (32.0-36.0); MEAN PLATELET VOLUME 8.4 FL (7.0-11.0); MONO % 9.5 % (0.0-8.0); MONOCYTE # 0.7 TH/MM3 (0-0.9); PLATELET COUNT 200 TH/MM3 (150-450); RED BLOOD COUNT 3.93 MIL/MM3 (4.00-5.30); RED CELL DISTRIBUTION WIDTH 13.1 % (11.6-17.2); WHITE BLOOD COUNT 6.9 TH/MM3 (4.0-11.0)
[2017-08-08 13:17] LABS: MAGNESIUM 1.4 MG/DL (1.5-2.5)
[2017-08-08 13:20] LABS: FREE T4 1.47 NG/DL (0.76-1.46)
[2017-08-08 13:58] LABS: BICARBONATE 24.9 MEQ/L (21.0-32.0); BLOOD UREA NITROGEN 8 MG/DL (7-18); CALCIUM 8.6 MG/DL (8.5-10.1); CHLORIDE 105 MEQ/L (98-107); CHOLESTEROL 107 MG/DL (120-200); CHOLESTEROL/ HDL RATIO 4.02 RATIO; CREATININE 0.69 MG/DL (0.50-1.00); FREE T4 1.42 NG/DL (0.76-1.46); GLOMERULAR FILTRATION RATE 90 ML/MIN (>89); GLUCOSE,RANDOM 75 MG/DL (74-106); HDL CHOLESTEROL 26.6 MG/DL (40.0-60.0); LDL CHOLESTEROL 44 MG/DL (0-99); SODIUM (NA) 142 MEQ/L (136-145); TRIGLYCERIDES 181 MG/DL (42-150)
[2017-08-08 18:00] VITALS: BP 130/69; PULSE 84; RESP 17; TEMP 99.2; O2SAT 96
[2017-08-08] MEDS ORDERED: MAGNESIUM OXIDE 400 MG TAB PO ONE (18:00)
--- NOTE | 2017-08-08 19:14 | EKG ---
Date Performed: 08/08/2017 Time Performed: 09:53:09 PTAGE: 52 years EKG: Sinus rhythm WITH SINUS ARRHYTHMIA WITH SHORT NH INTERVAL NONSPECIFIC ST & T-WAVE ABNORMALITY ABNORMAL ECG NO PREVIOUS TRACING DOCTOR: Cony Guerrero Interpretating Date/Time 08/08/2017 19:13:09
[2017-08-08] MEDS: diphenhydrAMINE HCL 50 MG CAP PO PRN (20:37)
[2017-08-09 05:55] VITALS: BP 109/74; PULSE 84; RESP 16; TEMP 98; O2SAT 94
[2017-08-09 07:43] LABS: AUTOMATED NEUTROPHIL # 3.3 TH/MM3 (1.8-7.7); BASOPHIL % 0.3 % (0.0-2.0); EOSINOPHIL % 0.8 % (0.0-4.0); HEMATOCRIT 36.4 % (35.0-46.0); HEMOGLOBIN 12.8 GM/DL (11.6-15.3); LYMPHOCYTE # 1.5 TH/MM3 (1.0-4.8); MEAN CELL VOLUME 89.8 FL (80.0-100.0); MEAN CORPUSCULAR HEMOGLOBIN 31.6 PG (27.0-34.0); MEAN CORPUSCULAR HGB CONC 35.2 % (32.0-36.0); MEAN PLATELET VOLUME 8.2 FL (7.0-11.0); MONO % 9.9 % (0.0-8.0); MONOCYTE # 0.5 TH/MM3 (0-0.9); PLATELET COUNT 195 TH/MM3 (150-450); RED BLOOD COUNT 4.05 MIL/MM3 (4.00-5.30); WHITE BLOOD COUNT 5.4 TH/MM3 (4.0-11.0)
[2017-08-09 08:14] LABS: BICARBONATE 24.6 MEQ/L (21.0-32.0); CALCIUM 8.6 MG/DL (8.5-10.1); CREATININE 0.51 MG/DL (0.50-1.00)
[2017-08-09] MEDS: MAGNESIUM OXIDE 400 MG TAB PO SCH ×2 (08:30→20:38)
[2017-08-09] MEDS: HALOPERIDOL 5 MG TAB PO SCH ×2 (08:31→20:38)
[2017-08-09] MEDS: NICOTINE 21 MG/24 HR PATCH T-DERMAL SCH (08:31)
[2017-08-09] MEDS: REMOVE OLD PATCH T-DERMAL SCH (09:00)
--- NOTE | 2017-08-09 09:08 | HHI.PR ---
Subjective Remarks Patient seen and examined this morning. Afebrile vital signs stable. She is lying in bed not very willing to communicate. Denies any complaints at this time. Objective Vitals Vital Signs Date Time Temp Pulse Resp B/P (MAP) Pulse Ox O2 Delivery O2 Flow Rate FiO2 08/09/17 05:55 98.0 84 16 109/74 (86) 94 08/08/17 18:00 99.2 84 17 130/69 (89) 96 I/O 08/08/17 08/08/17 08/08/17 08/09/17 08/09/17 08/09/17 07:00 15:00 23:00 07:00 15:00 23:00 Intake Total 1200 ml 720 ml 600 ml 500 ml Balance 1200 ml 720 ml 600 ml 500 ml Intake Oral 1200 ml 720 ml 600 ml IV Total 500 ml # Voids 2 3 Result Diagram: 08/09/17 0710 08/09/17 0710 Imaging Last Impressions Head CT 08/07/17 1252 Signed Impressions: Service Date/Time: Monday, August 07, 2017 14:55 - CONCLUSION: No acute intracranial disease. Donnie Robledo MD Objective Remarks GEN: Well-developed, well-nourished patient. No acute distress. CV: Regular rate and rhythm without obvious murmurs LUNGS: Clear to auscultation bilaterally. Normal respiratory effort. No wheezes , rales, rhonchi. GI: Soft, nontender, nondistended. No palpable masses. Bowel sounds WNL. EXT: No edema. NEURO/PSYCH: Afocal. Awake, alert, and oriented x3. Appropriate insight and judgment. Medications and IVs Current Medications Medications (Trade) Dose Ordered Sig/Betty Route Start Time Stop Time Status Last Admin (Tylenol) 650 mg Q4H PRN PO 08/07/17 20:00 (Milk Of Magnesia Liq) 30 ml DAILY PRN PO 08/07/17 20:00 (Mag-Al Plus Susp Liq) 30 ml Q6H PRN PO 08/07/17 20:00 (Habitrol 21 Mg Patch.24 Hr) 1 patch DAILY T-DERMAL 08/07/17 20:00 08/09/17 08:31 Miscellaneous Information 1 DAILY T-DERMAL 08/08/17 09:00 (Haldol) 5 mg BID PO 08/08/17 09:00 08/09/17 08:31 (Benadryl) 50 mg HS PRN PO 08/08/17 21:00 08/08/17 20:37 (Ativan) 1 mg Q6H PRN PO 08/08/17 09:00 (Mag-Ox) 400 mg Q12HR PO 08/09/17 09:00 08/11/17 08:59 08/09/17 08:30 A/P Problem List: (1) Hypertension ICD Code: I10 - Essential (primary) hypertension (2) YUMI (acute kidney injury) ICD Code: N17.9 - Acute kidney failure, unspecified (3) Hypokalemia ICD Code: E87.6 - Hypokalemia (4) Dehydration ICD Code: E86.0 - Dehydration (5) Bipolar disorder ICD Code: F31.9 - Bipolar disorder, unspecified Status: Acute (6) Unspecified psychosis ICD Code: F29 - Unspecified psychosis not due to a substance or known physiological condition Assessment and Plan 52-year-old female with a past medical history significant for bipolar disorder , history of medication noncompliance, anxiety, depression and hypertension who presented to [facility] ED under [place] act by the police department due to bizarre behavior and not taking care of herself. She was found to have a low potassium level of 2.8 as well as acute kidney injury from severe dehydration with creatinine of 1.80 and GFR of 30 which has responded well to IV hydration. Patient has since been admitted to the inpatient psychiatric unit and hospitalist services have been consulted for medical management. Bipolar disorder Acute psychosis Self care neglect Medication noncompliant -Management per psychiatric team -UDS negative -CT head shows no acute intracranial process, images reviewed by fl Hypertension but patient is now normotensive, and asymptomatic -suspect secondary to poor oral intake -fall precautions -Encourage adequate p.o. intake -continue to monitor BP closely Leukocytosis, resolved Lactic acidosis, resolved s/p IV fluids -suspect reactive, secondary to dehydration -patient is afebrile. -UA negative -CXR ordered and shows no evidence of acute disease, images reviewed by fl -BCX show no growth x 1 day -continue to monitor white count Acute kidney injury secondary to severe dehydration, resolved -creatinine 0.51/GFR 127, much improved status post IV hydration -Avoid nephrotoxic agent -Encourage by mouth intake -Continue to monitor renal indices as indicated Hypokalemia -K 2.8, improved to 3.4 s/p repletion -give additional 40meq po today. -Mag level is low providing supplementation -Repeat BMP in am Ongoing tobaccoism -discussed smoking cessation -nicotine patch refused DVT prophylaxis -patient is ambulatory Discharge Planning Unclear discharge pending psychiatric workup Problem Qualifiers (1) Bipolar disorder: Qualified Codes: F31.5 - Bipolar disorder, current episode depressed, severe, with psychotic features Gabriel Way MD, R3 Aug 09, 2017 09:08
[2017-08-09] MEDS ORDERED: MAGNESIUM OXIDE 400 MG TAB PO ONE (10:00)
[2017-08-09] MEDS ORDERED: POTASSIUM CHLORIDE 10 MEQ CAP PO ONE (10:00)
--- NOTE | 2017-08-09 10:25 | HHI.PYPN ---
Subjective Remarks Patient is here for follow, chart reviewed. Discussion nursing staff reported patient is somewhat disoriented today. Patient was found lying hospital bed noted to be somnolent in bed to be woken up several times to participate in interview today. Patient states that she is feeling sleepy, but her mood has been "okay". Patient was alert and oriented 3 continues to be superficially engaging in interview today. Patient denies any perceptual disturbances. Review of Systems Except as stated in HPI: all other systems reviewed are Neg Mental Status Examination Appearance: Dirty, Disheveled Consciousness: Alert Orientation: Person Motor Activity: Normal gait Speech: Hesitant, Slow Language: Adequate Fund of Knowledge: Inadequate Attention and Concentration: Inadequate (internally preoccupied) Memory: Impaired Mood: Sad (withdrawn) Affect: Blunt Thought Process & Associations: Other (decreased, limited, thought blocking) Thought Content: Thought blocking Hallucination Type: Auditory (Denies today) Delusion Type: None Suicidal Ideation: No Suicidal Plan: No Suicidal Intention: No Homicidal Ideation: No Homicidal Plan: No Homicidal Intention: No Insight: Poor Judgment: Poor Results Labs Test 08/08/17 11:21 08/09/17 07:10 White Blood Count 6.9 TH/MM3 5.4 TH/MM3 Red Blood Count 3.93 MIL/MM3 4.05 MIL/MM3 Hemoglobin 12.8 GM/DL 12.8 GM/DL Hematocrit 35.5 % 36.4 % Mean Corpuscular Volume 90.4 FL 89.8 FL Mean Corpuscular Hemoglobin 32.5 PG 31.6 PG Mean Corpuscular Hemoglobin Concent 35.9 % 35.2 % Red Cell Distribution Width 13.1 % 13.0 % Platelet Count 200 TH/MM3 195 TH/MM3 Mean Platelet Volume 8.4 FL 8.2 FL Neutrophils (%) (Auto) 72.0 % 61.0 % Lymphocytes (%) (Auto) 17.7 % 28.0 % Monocytes (%) (Auto) 9.5 % 9.9 % Eosinophils (%) (Auto) 0.4 % 0.8 % Basophils (%) (Auto) 0.4 % 0.3 % Neutrophils # (Auto) 4.9 TH/MM3 3.3 TH/MM3 Lymphocytes # (Auto) 1.2 TH/MM3 1.5 TH/MM3 Monocytes # (Auto) 0.7 TH/MM3 0.5 TH/MM3 Eosinophils # (Auto) 0.0 TH/MM3 0.0 TH/MM3 Basophils # (Auto) 0.0 TH/MM3 0.0 TH/MM3 CBC Comment DIFF FINAL DIFF FINAL Differential Comment Blood Urea Nitrogen 8 MG/DL 6 MG/DL Creatinine 0.69 MG/DL 0.51 MG/DL Random Glucose 75 MG/DL 95 MG/DL Calcium Level 8.6 MG/DL 8.6 MG/DL Sodium Level 142 MEQ/L 143 MEQ/L Potassium Level 2.9 MEQ/L 3.4 MEQ/L Chloride Level 105 MEQ/L 108 MEQ/L Carbon Dioxide Level 24.9 MEQ/L 24.6 MEQ/L Anion Gap 12 MEQ/L 10 MEQ/L Estimat Glomerular Filtration Rate 90 ML/MIN 127 ML/MIN Magnesium Level 1.4 MG/DL Triglycerides Level 181 MG/DL Cholesterol Level 107 MG/DL LDL Cholesterol 44 MG/DL HDL Cholesterol 26.6 MG/DL Cholesterol/HDL Ratio 4.02 RATIO Vitamin B12 Level 827 PG/ML 25-Hydroxy Vitamin D Total 32.3 ng/ML Free Thyroxine 1.47 NG/DL Total Triiodothyronine 113 NG/DL Date/Time Source Procedure Growth Status 08/07/17 07:00 Blood Peripheral Aerobic Blood Culture - Preliminary NO GROWTH IN 1 DAY Resulted 08/07/17 07:00 Blood Peripheral Anaerobic Blood Culture - Preliminary NO GROWTH IN 1 DAY Resulted Vitals/IOs Vital Signs Date Time Temp Pulse Resp B/P (MAP) Pulse Ox O2 Delivery O2 Flow Rate FiO2 08/09/17 05:55 98.0 84 16 109/74 (86) 94 08/07/17 15:10 Room Air Intake and Output 08/09/17 08/09/17 08/10/17 08:00 16:00 00:00 Intake Total 600 ml 500 ml Balance 600 ml 500 ml Assessment & Plan Problem List: (1) Unspecified psychosis ICD Codes: F29 - Unspecified psychosis not due to a substance or known physiological condition Assessment & Plan Patient this time with limited interaction with interview to be somnolent but was able to state being alert and oriented 3. We will continue current treatment. Continue to monitor mood and behavior. Continue to encourage patient to maintain personal hygiene as well as participating groups and activities on the unit. Discharge planning in progress. Justification for Cont. Inpt. At risk for further decompensation if at lower level of care Ochoa,Donnie Mike MD Aug 09, 2017 10:25
[2017-08-09 11:45] LABS: HEMOGLOBIN A1C 5.9 % (4.3-6.0)
[2017-08-09 18:23] VITALS: BP 140/75; PULSE 88; RESP 16; TEMP 97.6; O2SAT 97
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
[2017-08-10 05:00] VITALS: BP 117/63; PULSE 83; RESP 15; TEMP 98.5; O2SAT 98
[2017-08-10] MEDS: MAGNESIUM OXIDE 400 MG TAB PO SCH ×2 (08:40→20:50)
[2017-08-10] MEDS: HALOPERIDOL 5 MG TAB PO SCH ×2 (08:40→20:51)
[2017-08-10] MEDS: REMOVE OLD PATCH T-DERMAL SCH (08:41)
[2017-08-10] MEDS: NICOTINE 21 MG/24 HR PATCH T-DERMAL SCH (08:42)
[2017-08-10 08:52] LABS: HEMATOCRIT 42.6 % (35.0-46.0); HEMOGLOBIN 14.8 GM/DL (11.6-15.3); MEAN CELL VOLUME 90.7 FL (80.0-100.0); MEAN CORPUSCULAR HEMOGLOBIN 31.6 PG (27.0-34.0); MEAN CORPUSCULAR HGB CONC 34.8 % (32.0-36.0); MEAN PLATELET VOLUME 8.3 FL (7.0-11.0); PLATELET COUNT 223 TH/MM3 (150-450); RED CELL DISTRIBUTION WIDTH 13.2 % (11.6-17.2); WHITE BLOOD COUNT 6.1 TH/MM3 (4.0-11.0)
[2017-08-10 09:12] LABS: BICARBONATE 28.1 MEQ/L (21.0-32.0); CALCIUM 9.1 MG/DL (8.5-10.1); CREATININE 0.67 MG/DL (0.50-1.00)
--- NOTE | 2017-08-10 11:13 | HHI.PR ---
Subjective Remarks not talking much only answers by nodding or shaking her head denies any symptoms denies any med conditions per emr, has htn- but not on any meds Objective Vital Signs Date Time Temp Pulse Resp B/P (MAP) Pulse Ox O2 Delivery O2 Flow Rate FiO2 08/10/17 05:00 98.5 83 15 117/63 (81) 98 08/09/17 18:23 97.6 88 16 140/75 (96) 97 I/O 08/09/17 08/09/17 08/09/17 08/10/17 08/10/17 08/10/17 07:00 15:00 23:00 07:00 15:00 23:00 Intake Total 600 ml 740 ml 540 ml 240 ml Balance 600 ml 740 ml 540 ml 240 ml Intake Oral 600 ml 240 ml 540 ml 240 ml IV Total 500 ml # Voids 3 2 Result Diagram: 08/10/17 0750 08/10/17 0750 Objective Remarks Awake, alert, oriented. Has flat affect. Only answer questions by nodding or shaking her head. Heart rate is regular, no murmur appreciated. Lungs sounds are clear. Decreased air entry. Abdomen is soft and nontender. No rebound. No guarding. Lower extremities did not reveal any significant edema or asymmetry. A/P Assessment and Plan Impression: Bipolar disorder. Acute psychosis per notes. Currently looking as though she has major depressive episodes with flat affect. Management per psychiatry. Self-care neglect Medications noncompliance. History of hypertension per notes. However not on any antihypertensive medications. Patient also denies any history of hypertension. Blood pressure was somewhat slow initially a few days ago but this is now resolved. Leukocytosis. Secondary to dehydration. Resolved. Lactic acid acidosis. Again resolved with IV fluids. Secondary to dehydration. Acute kidney injury secondary to severe dehydration. Resolved. Hypokalemia. Resolved. Patient denies any recent nausea/vomiting/diarrhea. Chronic tobacco abuse Plan: denies acute med conditions hypokalemia resolved BP is stable hx of bipolar -with flat affect, not talking much will sign off on case as she is medically stable, no acute issues please reconsult prn Discharge Planning Per psychiatry Laly Alcantar MD Aug 10, 2017 11:13
[2017-08-10] MEDS: ENOXAPARIN SODIUM 40 MG/0.4 ML SYRINGE SQ SCH (12:00)
--- NOTE | 2017-08-10 12:59 | HHI.PYPN ---
Subjective Remarks Patient was seen today for psychiatric reevaluation. Case was widely discussed with nursing staff. On psychiatric evaluation I find a patient laying down in her bed, suck and wet of urine, completely careless. Patient reports that she feels okay, she says that she is not sure the reason she is here. She does remember that she is at [place], but is disoriented in time the patient has a prominent delay in speech and thinking, blocking thought and seems to be internally stimuli. No hyperactivity, no agitation, no aggressive behavior reported or observed. The patient has been compliant with her medications, no significant side effects to the moment. Review of Systems Except as stated in HPI: all other systems reviewed are Neg Mental Status Examination Appearance: Other Consciousness: Alert Orientation: Person Motor Activity: Normal gait Speech: Slow, Other Language: Adequate Fund of Knowledge: Inadequate Attention and Concentration: Inadequate (internally preoccupied) Memory: Impaired Mood: Sad Affect: Blunt Thought Process & Associations: Disorganized Thought Content: Thought blocking Hallucination Type: Other Delusion Type: None Suicidal Ideation: No Suicidal Plan: No Suicidal Intention: No Homicidal Ideation: No Homicidal Plan: No Homicidal Intention: No Insight: Poor Judgment: Poor Results Labs Test 08/10/17 07:50 White Blood Count 6.1 TH/MM3 Red Blood Count 4.70 MIL/MM3 Hemoglobin 14.8 GM/DL Hematocrit 42.6 % Mean Corpuscular Volume 90.7 FL Mean Corpuscular Hemoglobin 31.6 PG Mean Corpuscular Hemoglobin Concent 34.8 % Red Cell Distribution Width 13.2 % Platelet Count 223 TH/MM3 Mean Platelet Volume 8.3 FL Blood Urea Nitrogen 10 MG/DL Creatinine 0.67 MG/DL Random Glucose 132 MG/DL Calcium Level 9.1 MG/DL Sodium Level 140 MEQ/L Potassium Level 3.9 MEQ/L Chloride Level 103 MEQ/L Carbon Dioxide Level 28.1 MEQ/L Anion Gap 9 MEQ/L Estimat Glomerular Filtration Rate 93 ML/MIN Date/Time Source Procedure Growth Status 08/07/17 07:00 Blood Peripheral Aerobic Blood Culture - Preliminary NO GROWTH IN 3 DAYS Resulted 08/07/17 07:00 Blood Peripheral Anaerobic Blood Culture - Preliminary NO GROWTH IN 3 DAYS Resulted Vitals/IOs Vital Signs Date Time Temp Pulse Resp B/P (MAP) Pulse Ox O2 Delivery O2 Flow Rate FiO2 3/26/18 05:00 98.5 83 15 117/63 (81) 98 08/07/17 15:10 Room Air Intake and Output 08/10/17 08/10/17 08/11/17 08:00 16:00 00:00 Intake Total 300 ml Balance 300 ml Assessment & Plan Problem List: (1) Unspecified psychosis ICD Codes: F29 - Unspecified psychosis not due to a substance or known physiological condition Assessment & Plan: Patient continues to be internally stimulated, with prominent delay speech and blocking thought. Brain CT is unremarkable. Continue current psychotropic regimen. Patient may benefit of a mood stabilizer. Assessment & Plan Estimated LOS: days Justification for Cont. Inpt. Patient is acutely psychotic. Lele Stanley MD Aug 10, 2017 12:59
[2017-08-10 18:22] VITALS: BP 97/52; PULSE 80; RESP 16; TEMP 98.1; O2SAT 99
[2017-08-11 04:33] VITALS: BP 136/86; PULSE 94; RESP 17; TEMP 98.3; O2SAT 94
[2017-08-11] MEDS: HALOPERIDOL 5 MG TAB PO SCH (10:17)
[2017-08-11] MEDS: NICOTINE 21 MG/24 HR PATCH T-DERMAL SCH (10:17)
[2017-08-11] MEDS: REMOVE OLD PATCH T-DERMAL SCH (10:17)
[2017-08-11] MEDS: ENOXAPARIN SODIUM 40 MG/0.4 ML SYRINGE SQ SCH (12:14)
--- NOTE | 2017-08-11 13:19 | HHI.PYPN ---
Subjective Remarks The patient was seen today for psychiatric reevaluation. The patient continues to be very hypoactive, with marked psychomotor retardation, minimally cooperative, she seems to be melancholic, answering mostly with monosyllables. Her boyfriend is a bedside, he says that the patient has been presenting symptoms of depression for the last 2 weeks, she was not so severe like she is now. She has being Haldol deca for about 2 years. Here, the patient has been taking her medications, she does not show any stiffness, she does not show mannerisms, parkinsonism or tardive dyskinesia. With encouragement the patient was able to get up out of bed with her boyfriend and walk a little bit in the unit. Mental Status Examination Appearance: Other Consciousness: Alert Orientation: Person Motor Activity: Normal gait, Other (Psychomotor retardation) Speech: Slow, Other Language: Adequate Fund of Knowledge: Inadequate Attention and Concentration: Inadequate (internally preoccupied) Memory: Impaired Mood: Sad Affect: Blunt Thought Process & Associations: Disorganized Thought Content: Thought blocking Hallucination Type: Other Delusion Type: None Suicidal Ideation: No Suicidal Plan: No Suicidal Intention: No Homicidal Ideation: No Homicidal Plan: No Homicidal Intention: No Insight: Poor Judgment: Poor Results Labs Date/Time Source Procedure Growth Status 08/07/17 07:00 Blood Peripheral Aerobic Blood Culture - Preliminary NO GROWTH IN 4 DAYS Resulted 08/07/17 07:00 Blood Peripheral Anaerobic Blood Culture - Preliminary NO GROWTH IN 4 DAYS Resulted Vitals/IOs Vital Signs Date Time Temp Pulse Resp B/P (MAP) Pulse Ox O2 Delivery O2 Flow Rate FiO2 08/11/17 04:33 98.3 94 17 136/86 (103) 94 08/07/17 15:10 Room Air Intake and Output 08/11/17 08/11/17 08/12/17 08:00 16:00 00:00 Intake Total 480 ml Balance 480 ml Assessment & Plan Problem List: (1) Bipolar disorder ICD Codes: F31.9 - Bipolar disorder, unspecified Status: Acute Assessment & Plan: Psychiatric evaluation today the patient continues to presents severely depressed, with prominent psychomotor retardation, blocking thought, respiratory speech, oppositional, minimally engageable in conversation. Today, at least, she was able to get out of bed with her boyfriend to walk around the unit. She does not present EPS. I am going to discontinue the Haldol to avoid oversedation, and will start Abilify to help with psychosis and mood, and a low dose of lithium, 300 mg twice daily for bipolar depression. Assessment & Plan Estimated LOS: days Justification for Cont. Inpt. Patient is psychotically depressed. Problem Qualifiers (1) Bipolar disorder: Lele Stanley MD Aug 11, 2017 13:19
[2017-08-11 18:39] VITALS: BP 129/66; PULSE 94; RESP 18; TEMP 98.2; O2SAT 95
[2017-08-11] MEDS: LITHIUM CARBONATE 300 MG TAB PO SCH (21:26)
[2017-08-12 06:00] VITALS: BP 109/74; PULSE 92; RESP 19; TEMP 98.3; O2SAT 97
[2017-08-12] MEDS: LITHIUM CARBONATE 300 MG TAB PO SCH ×2 (09:00→20:41)
[2017-08-12] MEDS: REMOVE OLD PATCH T-DERMAL SCH (09:00)
[2017-08-12] MEDS: NICOTINE 21 MG/24 HR PATCH T-DERMAL SCH (09:00)
[2017-08-12] MEDS: ARIPiprazole 5 MG TAB PO SCH (09:05)
--- NOTE | 2017-08-12 11:20 | HHI.PYPN ---
Subjective Remarks The patient was seen today for psychiatric reevaluation along with the nurse in charge. The patient continues to be guarded, oppositional, the patient continued to be very guarded, oppositional, minimally engageable in a conversation. The patient responds selectively just to some of my questions, usually with one-word answers. She has been eating her food, she was seen taking a shower this morning, and at times she could make some eye contact. The patient is oriented 3. She has been very hypoactive in the unit, with a pronounced psychomotor retardation, she has been urinating in her pants. Review of Systems Constitutional: DENIES: Diaphoretic episodes, Fatigue, Fever, Weight gain, Weight loss, Chills, Dizziness, Change in appetite, Night Sweats Endocrine: DENIES: Abnorml menstrual pattern, Heat/cold intolerance, Polydipsia , Polyuria, Polyphagia Eyes: DENIES: Blurred vision, Diplopia, Eye inflammation, Eye pain, Vision loss , Photosensitivity, Double Vision Ears, nose, mouth, throat: DENIES: Tinnitus, Hearing loss, Vertigo, Nasal discharge, Oral lesions, Throat pain, Hoarseness, Ear Pain, Running Nose, Epistaxis, Sinus Pain, Toothache, Odynophagia Respiratory: DENIES: Apneas, Cough, Snoring, Wheezing, Hemoptysis, Sputum production, Shortness of breath Cardiovascular: DENIES: Chest pain, Palpitations, Syncope, Dyspnea on Exertion , PND, Lower Extremity Edema, Orthopnea, Claudication Except as stated in HPI: all other systems reviewed are Neg Mental Status Examination Appearance: Other Consciousness: Alert Orientation: Person Motor Activity: Normal gait, Other (Psychomotor retardation) Speech: Slow, Other Language: Adequate Fund of Knowledge: Inadequate Attention and Concentration: Inadequate (internally preoccupied) Memory: Impaired Mood: Sad Affect: Blunt Thought Process & Associations: Disorganized Thought Content: Thought blocking Hallucination Type: Other Delusion Type: None Suicidal Ideation: No Suicidal Plan: No Suicidal Intention: No Homicidal Ideation: No Homicidal Plan: No Homicidal Intention: No Insight: Poor Judgment: Poor Results Labs Date/Time Source Procedure Growth Status 08/07/17 07:00 Blood Peripheral Aerobic Blood Culture - Final NO GROWTH IN 5 DAYS Complete 08/07/17 07:00 Blood Peripheral Anaerobic Blood Culture - Final NO GROWTH IN 5 DAYS Complete Vitals/IOs Vital Signs Date Time Temp Pulse Resp B/P (MAP) Pulse Ox O2 Delivery O2 Flow Rate FiO2 08/12/17 06:00 98.3 92 19 109/74 (86) 97 Intake and Output 08/12/17 08/12/17 08/13/17 08:00 16:00 00:00 Intake Total 240 ml Balance 240 ml Assessment & Plan Problem List: (1) Bipolar disorder ICD Codes: F31.9 - Bipolar disorder, unspecified Status: Acute Assessment & Plan: My suspicion is that the patient is very depressed, with some melancholic features, most poorly she is suffering bipolar depression. A behavioral component in her presentation is also possible. I started yesterday lithium 300 mg twice daily and Abilify 5 mg, today we will continue this regimen. Support, motivation and psych education provided. Assessment & Plan Estimated LOS: days Justification for Cont. Inpt. The patient is psychotically depressed. Problem Qualifiers (1) Bipolar disorder: Lele Stanley MD Aug 12, 2017 11:20
[2017-08-12] MEDS: ENOXAPARIN SODIUM 40 MG/0.4 ML SYRINGE SQ SCH (12:00)
[2017-08-12 18:00] VITALS: BP 122/70; PULSE 86; RESP 18; TEMP 97.3; O2SAT 96
[2017-08-12] MEDS: diphenhydrAMINE HCL 50 MG CAP PO PRN (20:41)
[2017-08-13 05:58] VITALS: BP 120/73; PULSE 89; RESP 18; TEMP 97.7; O2SAT 98
[2017-08-13] MEDS: REMOVE OLD PATCH T-DERMAL SCH (09:00)
[2017-08-13] MEDS: LITHIUM CARBONATE 300 MG TAB PO SCH (09:23)
[2017-08-13] MEDS: ARIPiprazole 5 MG TAB PO SCH (09:23)
[2017-08-13] MEDS: NICOTINE 21 MG/24 HR PATCH T-DERMAL SCH (09:23)
[2017-08-13] MEDS: ENOXAPARIN SODIUM 40 MG/0.4 ML SYRINGE SQ SCH (12:00)
--- NOTE | 2017-08-13 12:28 | HHI.PYPN ---
Subjective Remarks The patient was seen today for psychiatric reevaluation along with nurse in charge Calvin. Patient, as usual laying down in her bed, poorly participative in the interview, answering selectively to questions, kind of oppositional. At some point she did say that she has been feeling better, but she does not elaborate about this idea. She also was able to me a little bit of eye contact this time. This morning she refused to wake up and go to court. Patient has been seclusive, no participating in activities, basically not talking in the unit, but she has been eating and taking her medications. She is oriented 3. Review of Systems Psychiatric: COMPLAINS OF: Depression Except as stated in HPI: all other systems reviewed are Neg Mental Status Examination Appearance: Other Consciousness: Alert Orientation: Person Motor Activity: Normal gait, Other (Psychomotor retardation) Speech: Slow, Other Language: Adequate Fund of Knowledge: Inadequate Attention and Concentration: Inadequate (internally preoccupied) Memory: Impaired Mood: Sad Affect: Blunt Thought Process & Associations: Disorganized Thought Content: Thought blocking Hallucination Type: Other Delusion Type: None Suicidal Ideation: No Suicidal Plan: No Suicidal Intention: No Homicidal Ideation: No Homicidal Plan: No Homicidal Intention: No Insight: Poor Judgment: Poor Results Labs Date/Time Source Procedure Growth Status 08/07/17 07:00 Blood Peripheral Aerobic Blood Culture - Final NO GROWTH IN 5 DAYS Complete 08/07/17 07:00 Blood Peripheral Anaerobic Blood Culture - Final NO GROWTH IN 5 DAYS Complete Vitals/IOs Vital Signs Date Time Temp Pulse Resp B/P (MAP) Pulse Ox O2 Delivery O2 Flow Rate FiO2 08/13/17 05:58 97.7 89 18 120/73 (89) 98 Intake and Output 08/13/17 08/13/17 08/14/17 08:00 16:00 00:00 Intake Total 0 ml 720 ml Balance 0 ml 720 ml Assessment & Plan Problem List: (1) Bipolar disorder ICD Codes: F31.9 - Bipolar disorder, unspecified Status: Acute Assessment & Plan: Patient continues to be very depressed, melancholic, with marked psychomotor retardation. Will increase lithium to 450 mg twice daily. Brief supportive psychotherapy provided. Patient was widely educated about the importance of trying to get out of bed, also engage in activities in the unit. Assessment & Plan Estimated LOS: days Justification for Cont. Inpt. Patient has elevated risk of decompensate out of the unit Problem Qualifiers (1) Bipolar disorder: Lele Stanley MD Aug 13, 2017 12:28
[2017-08-13 18:25] VITALS: BP 104/63; PULSE 86; RESP 18; TEMP 98; O2SAT 98
[2017-08-13] MEDS: LITHIUM CARBONATE 450 MG CONTROLLED RELEASE TAB PO SCH (20:34)
[2017-08-14 06:00] VITALS: BP 130/78; PULSE 95; RESP 16; TEMP 97.6; O2SAT 98
[2017-08-14] MEDS: ARIPiprazole 5 MG TAB PO SCH (09:00)
[2017-08-14] MEDS: REMOVE OLD PATCH T-DERMAL SCH (09:00)
--- NOTE | 2017-08-14 09:13 | HHI.PYPN ---
Subjective Remarks Patient was seen today for psychiatric reevaluation along with nurse in charge Marcelina. The patient continues to be very guarded, seclusive, difficult to engage in a conversation. The patient is able to answer selectively some questions, usually with yes and not. She does report that she knows she is in [place], July 2017. She makes some eye contact, which he seems to be selectively oppositional. She denies suicidal and homicidal ideation, she denies visual and auditory hallucinations. She has been taking her medications , no significant side effects. Lynn levels today are 0.5. Review of Systems Psychiatric: COMPLAINS OF: Depression Except as stated in HPI: all other systems reviewed are Neg Mental Status Examination Appearance: Other Consciousness: Alert Orientation: Person Motor Activity: Normal gait, Other (Psychomotor retardation) Speech: Slow, Other Language: Adequate Fund of Knowledge: Inadequate Attention and Concentration: Inadequate (internally preoccupied) Memory: Impaired Mood: Sad Affect: Blunt Thought Process & Associations: Disorganized Thought Content: Thought blocking Hallucination Type: Other Delusion Type: None Suicidal Ideation: No Suicidal Plan: No Suicidal Intention: No Homicidal Ideation: No Homicidal Plan: No Homicidal Intention: No Insight: Poor Judgment: Poor Results Labs Test 08/13/17 15:54 Lynn Level 0.5 MEQ/L Date/Time Source Procedure Growth Status 08/07/17 07:00 Blood Peripheral Aerobic Blood Culture - Final NO GROWTH IN 5 DAYS Complete 08/07/17 07:00 Blood Peripheral Anaerobic Blood Culture - Final NO GROWTH IN 5 DAYS Complete Vitals/IOs Vital Signs Date Time Temp Pulse Resp B/P (MAP) Pulse Ox O2 Delivery O2 Flow Rate FiO2 08/14/17 06:00 97.6 95 16 130/78 (95) 98 Intake and Output 08/14/17 08/14/17 08/15/17 08:00 16:00 00:00 Intake Total 720 ml Balance 720 ml Assessment & Plan Problem List: (1) Bipolar disorder ICD Codes: F31.9 - Bipolar disorder, unspecified Status: Acute Assessment & Plan: Continue current psychotropic regimen. Lynn level is 0.5. Brief supportive psychotherapy, motivational support provided. Try to get patient down to 2600 unit to be involved in more activities. Assessment & Plan Estimated LOS: days Justification for Cont. Inpt. Patient has an elevated risk to decompensate at a lower level of care. Problem Qualifiers (1) Bipolar disorder: Lele Stanley MD Aug 14, 2017 09:13
[2017-08-14] MEDS: NICOTINE 21 MG/24 HR PATCH T-DERMAL SCH (10:05)
[2017-08-14] MEDS: LITHIUM CARBONATE 450 MG CONTROLLED RELEASE TAB PO SCH ×2 (10:05→20:18)
[2017-08-14] MEDS: ENOXAPARIN SODIUM 40 MG/0.4 ML SYRINGE SQ SCH (12:00)
[2017-08-14 18:16] VITALS: BP 123/56; PULSE 83; RESP 16; TEMP 98.3; O2SAT 96
[2017-08-15 06:00] VITALS: BP 123/74; PULSE 86; RESP 16; TEMP 97.4; O2SAT 98
[2017-08-15] MEDS: LITHIUM CARBONATE 450 MG CONTROLLED RELEASE TAB PO SCH ×2 (09:29→20:04)
[2017-08-15] MEDS: ARIPiprazole 10 MG TAB PO SCH (09:29)
[2017-08-15] MEDS: REMOVE OLD PATCH T-DERMAL SCH (09:32)
[2017-08-15] MEDS: NICOTINE 21 MG/24 HR PATCH T-DERMAL SCH (09:32)
[2017-08-15] MEDS: ENOXAPARIN SODIUM 40 MG/0.4 ML SYRINGE SQ SCH (12:38)
--- NOTE | 2017-08-15 14:58 | HHI.PYPN ---
Subjective Remarks Patient was seen and case discussed with nursing. Patient is seclusive to room. Selectively incontinent per nursing. Affect is flat and apathetic. She is compliant with medications. Mood remains depressed. Mental Status Examination Appearance: Other Consciousness: Alert Orientation: Person Motor Activity: Normal gait, Other (Psychomotor retardation) Speech: Slow, Other Language: Adequate Fund of Knowledge: Inadequate Attention and Concentration: Inadequate (internally preoccupied) Memory: Impaired Mood: Sad Affect: Blunt Thought Process & Associations: Disorganized Thought Content: Thought blocking Hallucination Type: Other Delusion Type: None Suicidal Ideation: No Suicidal Plan: No Suicidal Intention: No Homicidal Ideation: No Homicidal Plan: No Homicidal Intention: No Insight: Poor Judgment: Poor Results Labs Date/Time Source Procedure Growth Status 08/07/17 07:00 Blood Peripheral Aerobic Blood Culture - Final NO GROWTH IN 5 DAYS Complete 08/07/17 07:00 Blood Peripheral Anaerobic Blood Culture - Final NO GROWTH IN 5 DAYS Complete Vitals/IOs Vital Signs Date Time Temp Pulse Resp B/P (MAP) Pulse Ox O2 Delivery O2 Flow Rate FiO2 08/15/17 06:00 97.4 86 16 123/74 (90) 98 Intake and Output 08/15/17 08/15/17 08/16/17 08:00 16:00 00:00 Intake Total 240 ml 1770 ml Balance 240 ml 1770 ml Assessment & Plan Problem List: (1) Bipolar disorder ICD Codes: F31.9 - Bipolar disorder, unspecified Status: Acute Assessment & Plan Continue current treatment plan Justification for Cont. Inpt. Patient would decompensate in a less restrictive setting Problem Qualifiers (1) Bipolar disorder: Brock Cruz DO Aug 15, 2017 14:58
[2017-08-15 18:10] VITALS: BP 118/68; PULSE 88; RESP 16; TEMP 98.1; O2SAT 98
[2017-08-16 06:37] VITALS: BP 132/81; PULSE 83; RESP 17; TEMP 97.5; O2SAT 98
[2017-08-16] MEDS: NICOTINE 21 MG/24 HR PATCH T-DERMAL SCH (09:00)
[2017-08-16] MEDS: REMOVE OLD PATCH T-DERMAL SCH (09:00)
[2017-08-16] MEDS: LITHIUM CARBONATE 450 MG CONTROLLED RELEASE TAB PO SCH ×2 (10:09→20:38)
[2017-08-16] MEDS: ARIPiprazole 10 MG TAB PO SCH (10:10)
[2017-08-16] MEDS: ENOXAPARIN SODIUM 40 MG/0.4 ML SYRINGE SQ SCH (12:00)
--- NOTE | 2017-08-16 14:14 | HHI.PYPN ---
Subjective Remarks Patient was seen and case discussed with nursing. Patient remains minimally interactive, laying in bed, poor eye contact during the interview. However per nursing, she has spontaneous speech with various requests when speaking with her. Incontinence has improved. His compliant with her medications and tolerating them well Mental Status Examination Appearance: Other Consciousness: Alert Orientation: Person Motor Activity: Normal gait, Other (Psychomotor retardation) Speech: Slow, Other Language: Adequate Fund of Knowledge: Inadequate Attention and Concentration: Inadequate (internally preoccupied) Memory: Impaired Mood: Sad Affect: Blunt Thought Process & Associations: Disorganized Thought Content: Thought blocking Hallucination Type: Other Delusion Type: None Suicidal Ideation: No Suicidal Plan: No Suicidal Intention: No Homicidal Ideation: No Homicidal Plan: No Homicidal Intention: No Insight: Poor Judgment: Poor Results Labs Date/Time Source Procedure Growth Status 08/07/17 07:00 Blood Peripheral Aerobic Blood Culture - Final NO GROWTH IN 5 DAYS Complete 08/07/17 07:00 Blood Peripheral Anaerobic Blood Culture - Final NO GROWTH IN 5 DAYS Complete Vitals/IOs Vital Signs Date Time Temp Pulse Resp B/P (MAP) Pulse Ox O2 Delivery O2 Flow Rate FiO2 08/16/17 06:37 97.5 83 17 132/81 (98) 98 Intake and Output 08/16/17 08/16/17 08/17/17 08:00 16:00 00:00 Intake Total 0 ml 480 ml Balance 0 ml 480 ml Assessment & Plan Problem List: (1) Bipolar disorder ICD Codes: F31.9 - Bipolar disorder, unspecified Status: Acute Assessment & Plan Continue current treatment plan Justification for Cont. Inpt. Patient would decompensate in a less restrictive setting Problem Qualifiers (1) Bipolar disorder: Brock Cruz DO Aug 16, 2017 14:14
[2017-08-16 18:11] VITALS: BP 115/64; PULSE 80; RESP 17; TEMP 97.6; O2SAT 98
[2017-08-17 05:56] VITALS: BP 121/67; PULSE 93; RESP 16; TEMP 99.1; O2SAT 97
[2017-08-17] MEDS: LITHIUM CARBONATE 450 MG CONTROLLED RELEASE TAB PO SCH ×2 (08:19→20:55)
[2017-08-17] MEDS: ARIPiprazole 10 MG TAB PO SCH (08:20)
[2017-08-17] MEDS: NICOTINE 21 MG/24 HR PATCH T-DERMAL SCH (08:22)
[2017-08-17] MEDS: REMOVE OLD PATCH T-DERMAL SCH (08:22)
[2017-08-17] MEDS ORDERED: PILL SPLITTER OTHER PRN (11:30)
--- NOTE | 2017-08-17 11:30 | HHI.PYPN ---
Subjective Remarks The patient was seen today for psychiatric reevaluation. Notes from weekend rounder were reviewed. Psychotic evaluation today the patient does not show any significant improvement from my last follow-up. She continues to be laid down in bed, minimally engageable in a conversation, answering just with one- word answers selectively. With a marked psychomotor retardation, flat affect, anhedonia. She has been taking her medications, no significant side effects reported or observed. She has been going to the bathroom most of the time, but sometimes she wets herself. She is oriented 3, denies SI, denies HI. She has been getting more than 50% of her food. I tried to discuss the benefit of ECT with the patient, which she refused to go to the therapy state "how is that going to help me, I do not need any help" Review of Systems Psychiatric: COMPLAINS OF: Depression Mental Status Examination Appearance: Other Consciousness: Alert Orientation: Person Motor Activity: Normal gait, Other (Psychomotor retardation) Speech: Slow, Other Language: Adequate Fund of Knowledge: Inadequate Attention and Concentration: Inadequate (internally preoccupied) Memory: Impaired Mood: Sad Affect: Blunt Thought Process & Associations: Disorganized Thought Content: Thought blocking Hallucination Type: Other Delusion Type: None Suicidal Ideation: No Suicidal Plan: No Suicidal Intention: No Homicidal Ideation: No Homicidal Plan: No Homicidal Intention: No Insight: Poor Judgment: Poor Results Labs Date/Time Source Procedure Growth Status 08/07/17 07:00 Blood Peripheral Aerobic Blood Culture - Final NO GROWTH IN 5 DAYS Complete 08/07/17 07:00 Blood Peripheral Anaerobic Blood Culture - Final NO GROWTH IN 5 DAYS Complete Vitals/IOs Vital Signs Date Time Temp Pulse Resp B/P (MAP) Pulse Ox O2 Delivery O2 Flow Rate FiO2 08/17/17 05:56 99.1 93 16 121/67 (85) 97 Intake and Output 08/17/17 08/17/17 08/18/17 08:00 16:00 00:00 Intake Total 240 ml 600 ml Balance 240 ml 600 ml Assessment & Plan Problem List: (1) Bipolar disorder ICD Codes: F31.9 - Bipolar disorder, unspecified Status: Acute Assessment & Plan: She continues to be severely depressed. With marked psychomotor retardation and neurovegetative symptoms of depression. I am adding Paxil 10 mg to her psychotropic regimen to help with her depression. I am also starting a package for ECT referral since the patient is not showing improvement in her depression. Will consult psychiatry for second opinion of ECT. Assessment & Plan Estimated LOS: days Justification for Cont. Inpt. Patient continues to be very depressed, responding poorly to psychotropics. Problem Qualifiers (1) Bipolar disorder: Lele Stanley MD Aug 17, 2017 11:30
[2017-08-17] MEDS: ENOXAPARIN SODIUM 40 MG/0.4 ML SYRINGE SQ SCH (11:50)
[2017-08-17 18:00] VITALS: BP 134/76; PULSE 77; RESP 16; TEMP 98.5; O2SAT 98
[2017-08-18 06:21] VITALS: BP 93/51; PULSE 71; RESP 15; TEMP 98.4; O2SAT 93
[2017-08-18 07:12] VITALS: BP 116/63; PULSE 76
[2017-08-18] MEDS: REMOVE OLD PATCH T-DERMAL SCH (09:00)
[2017-08-18] MEDS: ARIPiprazole 10 MG TAB PO SCH (09:07)
[2017-08-18] MEDS: LITHIUM CARBONATE 450 MG CONTROLLED RELEASE TAB PO SCH ×2 (09:08→21:00)
[2017-08-18] MEDS: NICOTINE 21 MG/24 HR PATCH T-DERMAL SCH (09:08)
[2017-08-18] MEDS: PARoxetine HCL 20 MG TAB PO SCH (09:08)
--- NOTE | 2017-08-18 10:49 | PD.PSY.CON ---
Provisional Diagnosis Admission Date Aug 07, 2017 at 19:50 [place] I. 1. Depressive disorder Rule-out MDD, BPAD, Schizoaffective disorder [place] II. Deferred History of Present Illness Service Psychiatry Consult Requested By Dr. Stanley Reason for Consult Second opinion for ECT Primary Care Physician Unknown HPI Ms. Penn is a 52 year-old female of uncertain past psychiatric history who presented initially on 08/07/17 under a [place] Act by law enforcement alleging self-care deficit. Patient was initially followed by Dr. Packer and subsequently by Dr. Stanley, and I have reviewed their progress notes. Reviewing the EMR, I see no prior psychiatric contact within our system. Patient seen and examined. Chart reviewed. Patient took between 75-100% of meals yesterday. Sleep was not charted overnight, but sleep duration appears to be generally increasing over this admission. Case discussed with nursing staff. On my examination, I find the patient in her room, lying in bed. I have explained the purpose of my consultation today. She is somewhat reluctant to participate in interview. She presents as extremely negativistic and psychomotor slowed. She is quite disheveled and there is an evident self-care deficit, although nursing staff does relate that the patient did shower today with staff prompting. Mood currently is "okay" but affect is restricted and dysphoric. Anhedonia is present. The patient is noncommittal regarding hopeless/worthless feelings. She denies any suicidal or homicidal ideation presently but seems unreliable to contract for safety. I can elicit no hypomanic or manic symptoms presently. She denies any audiovisual hallucinations. I can elicit no paranoia but the patient is once again somewhat noncommittal regarding feelings of thought manipulation. Patient is unable to tolerate extended interview and asks to be returned to her room. No acute physical complaints. When asked if she would be interested in ECT treatment, patient is once again fairly noncommittal. Past psychiatric history: The patient reports that she is unsure of her previous psychiatric diagnosis. She reports that she has not seen a psychiatrist in several months. She does report previous psychiatric admissions in the past, although I see no record within our system of admissions. She denies a history of suicide attempts. She denies a history of nonsuicidal self-injurious behavior. She denies a history of violent behavior. She has no history of previous treatment with ECT. She is unsure of previous medication trials and cannot recall whether she has been on various medications when I offer the names to her. Family history: The patient does endorse a family history of mental illness although she is not sure of the diagnoses or the people affected. She denies any family history of suicide. Chemical dependency history: The patient denies any abuse of drugs or alcohol. Social history: Patient is vague regarding her living situation. She is single with no children. She is likewise vague regarding her level of education. She denies any access to guns or firearms. She denies any taoism or spiritual beliefs. She denies any history of abuse or mistreatment. Review of Systems ROS Limitations: Poor Historian Except as stated in HPI: all other systems reviewed are Neg Past Family Social History Coded Allergies: No Known Allergies (Unverified Allergy, Unknown, 08/07/17) Past Medical History Patient denies any history of medical problems. She does have poor dentition and notes that she is edentulous for her top teeth. She denies having any loose or chipped teeth. She denies osteoporosis or spinal issues. Active Scripts Hydroxyzine Pamoate (Vistaril) 25 Mg Cap, 25 MG PO Q6H Y for ITCHING, #20 CAP 0 Refills Prov:Kar Carvalho MD 02/11/17 Reported Medications Haloperidol Decanoate Inj (Haldol Decanoate Inj) 50 Mg/Ml Inj, 50 MG IM Q28D for Schizophrenia, #1 VIAL 0 Refills 09/30/16 Current Medications Medications (Trade) Dose Ordered Sig/Betty Route Start Time Stop Time Status Last Admin (Tylenol) 650 mg Q4H PRN PO 08/07/17 20:00 (Milk Of Magnesia Liq) 30 ml DAILY PRN PO 08/07/17 20:00 (Mag-Al Plus Susp Liq) 30 ml Q6H PRN PO 08/07/17 20:00 (Habitrol 21 Mg Patch.24 Hr) 1 patch DAILY T-DERMAL 08/07/17 20:00 08/18/17 09:08 Miscellaneous Information 1 DAILY T-DERMAL 08/08/17 09:00 08/17/17 08:22 (Benadryl) 50 mg HS PRN PO 08/08/17 21:00 08/12/17 20:41 (Ativan) 1 mg Q6H PRN PO 08/08/17 09:00 (Lovenox Inj) 40 mg Q24H SQ 08/10/17 12:00 08/17/17 11:50 (Eskalith Sr) 450 mg Q12HR PO 08/13/17 21:00 08/18/17 09:08 (Abilify) 10 mg DAILY PO 08/15/17 09:00 08/18/17 09:07 (Paxil) 10 mg DAILY PO 08/18/17 09:00 08/18/17 09:08 (Pill Splitter) 1 ea UNSCH PRN OTHER 08/17/17 11:30 Patient's Strengths (min. 2) Verbal and communicative Physical Exam Physical examination completed by hospitalist universal branch consultant. On my examination today, the patient appears to be in no acute physical distress. She is somewhat thin and ill-appearing and her hygiene is poor as noted above. She is psychomotor slowed but no other motor abnormalities are noted. Labs and vitals reviewed: Vital Signs Vital Signs Date Time Temp Pulse Resp B/P (MAP) Pulse Ox O2 Delivery O2 Flow Rate FiO2 08/18/17 07:12 76 116/63 (80) 08/18/17 06:21 98.4 15 93 I/O 08/18/17 08/18/17 08/19/17 08:00 16:00 00:00 Intake Total 240 ml 360 ml Balance 240 ml 360 ml Lab Results Date/Time Source Procedure Growth Status 08/07/17 07:00 Blood Peripheral Aerobic Blood Culture - Final NO GROWTH IN 5 DAYS Complete 08/07/17 07:00 Blood Peripheral Anaerobic Blood Culture - Final NO GROWTH IN 5 DAYS Complete Item Value Date Time White Blood Count 6.1 TH/MM3 08/10/17 0750 Hemoglobin 14.8 GM/DL # 08/10/17 0750 Platelet Count 223 TH/MM3 08/10/17 0750 Sodium Level 140 MEQ/L 08/10/17 0750 Potassium Level 3.9 MEQ/L 08/10/17 0750 Chloride Level 103 MEQ/L 08/10/17 0750 Carbon Dioxide Level 28.1 MEQ/L 08/10/17 0750 Blood Urea Nitrogen 10 MG/DL 08/10/17 0750 Creatinine 0.67 MG/DL 08/10/17 0750 Estimat Glomerular Filtration Rate 93 ML/MIN 08/10/17 0750 Aspartate Amino Transf (AST/SGOT) 23 U/L 08/07/17 1310 Alanine Aminotransferase (ALT/SGPT) 17 U/L 08/07/17 1310 Alkaline Phosphatase 80 U/L 08/07/17 1310 Thyroid Stimulating Hormone 3rd Gen 9.060 uIU/ML H 08/07/17 0510 Total Triiodothyronine 113 NG/DL 08/08/17 1121 Free Thyroxine 1.47 NG/DL H 08/08/17 1121 25-Hydroxy Vitamin D Total 32.3 ng/ML 08/08/17 1121 Vitamin B12 Level 827 PG/ML 08/08/17 1121 [place] Level 0.5 MEQ/L 08/13/17 1554 N.B. [place] level was obtained post-dose on 300mg BID dose. This likely over- represents the true level on that dose but is still subtherapeutic. Last Impressions Chest X-Ray 08/08/17 0000 Signed Impressions: Service Date/Time: Tuesday, August 08, 2017 08:13 - CONCLUSION: No acute disease. Simone Short MD Head CT 08/07/17 1252 Signed Impressions: Service Date/Time: Monday, August 07, 2017 14:55 - CONCLUSION: No acute intracranial disease. Donnie Robledo MD Mental Status Examination Appearance: Disheveled Consciousness: Alert Orientation: Person, Place (at least) Motor Activity: Other (Ongoing psychomotor retardation) Speech: Slow, Other (Increased speech latency) Language: Adequate Fund of Knowledge: Adequate Attention and Concentration: Other (Poor) Memory: Impaired (On clinical exam) Mood: Other ("okay") Affect: Other (Restricted and dysphoric) Thought Process & Associations: Other (Slowed) Thought Content: Other (Vague) Hallucination Type: None Delusion Type: None Suicidal Ideation: No Suicidal Plan: No Suicidal Intention: No Homicidal Ideation: No Homicidal Plan: No Homicidal Intention: No Insight: Poor Judgment: Poor Assessment & Plan Problem List: (1) Depressive disorder ICD Codes: F32.9 - Major depressive disorder, single episode, unspecified Assessment & Plan 52-year-old female with psychiatric history as detailed above presently admitted to the medical psychiatric unit for management of depressive episode in the setting of suspected bipolar illness. Dr. Stanley has requested that I see the patient in consultation for possible ECT. On my exam, I find the patient extremely psychomotor slowed and negativistic. She is anhedonic, and although she does not verbalize affective symptoms of depression such as hopeless or worthless feelings, she exhibits sufficient signs of this illness (such as the motor findings and impaired attention/concentration) to lend strong support to diagnosis of depressive episode. There is no obvious organic etiology for her symptoms; she does have elevated TSH but subsequent thyroid hormone testing does not support hypothyroidism. Currently, the patient is being treated with lithium, Abilify, and most recently Paxil was added today. Consider rechecking a lithium level to ensure the increased dose has brought patient into the therapeutic range, and consider replacing Abilify with an agent efficacious in the treatment of bipolar depression, such as Latuda or Seroquel. If pharmacologic treatment is ineffective or if patient's condition necessitates rapid response (e.g. in the case of prolonged food refusal or emergent suicidality), then ECT would certainly be appropriate. ECT would also be appropriate if this were the patient's preference, although as noted above patient was at best noncommittal when I asked about this option. There is presently no petition for extraordinary treatment on the patient's chart, and in discussing the matter with the legal support specialist it seems that such a petition cannot presently be initiated as petition for involuntary psychiatric hospitalization of the patient was placed in continuance on 08/13 and no guardian advocate was appointed. Thank you very much for this consultation. Jorge Rollins MD Aug 18, 2017 10:49
--- NOTE | 2017-08-18 11:12 | HHI.PYPN ---
Subjective Remarks The patient was seen today for psychiatric reevaluation along with nurse in charge Loulou. Today for the first time since I am treating this patient she was able to pronounce full sentences to answer my questions. She is still have a flat affect, is guarded, with blocking thought and respiratory speech, which he has wider range of affect with 2 short smiles during the interview. She reports feeling better, she denies suicidal and homicidal ideation, she denies visual and auditory hallucinations at the moment. She does report that she has been hearing voices in the last days, but not today. She refused to elaborate about the contents of auditory hallucinations. The patient is fully oriented 3 , she is fully compliant with her medications, no significant side effects reported. Review of Systems Psychiatric: COMPLAINS OF: Depression, Hallucinations Except as stated in HPI: all other systems reviewed are Neg Mental Status Examination Appearance: Other Consciousness: Alert Orientation: Person Motor Activity: Normal gait, Other (Psychomotor retardation) Speech: Slow, Other Language: Adequate Fund of Knowledge: Inadequate Attention and Concentration: Inadequate (internally preoccupied) Memory: Impaired Mood: Sad Affect: Blunt Thought Process & Associations: Disorganized Thought Content: Thought blocking Hallucination Type: Auditory, Other Delusion Type: None Suicidal Ideation: No Suicidal Plan: No Suicidal Intention: No Homicidal Ideation: No Homicidal Plan: No Homicidal Intention: No Insight: Poor Judgment: Poor Results Labs Date/Time Source Procedure Growth Status 08/07/17 07:00 Blood Peripheral Aerobic Blood Culture - Final NO GROWTH IN 5 DAYS Complete 08/07/17 07:00 Blood Peripheral Anaerobic Blood Culture - Final NO GROWTH IN 5 DAYS Complete Vitals/IOs Vital Signs Date Time Temp Pulse Resp B/P (MAP) Pulse Ox O2 Delivery O2 Flow Rate FiO2 08/18/17 07:12 76 116/63 (80) 08/18/17 06:21 98.4 15 93 Intake and Output 08/18/17 08/18/17 08/19/17 08:00 16:00 00:00 Intake Total 240 ml 360 ml Balance 240 ml 360 ml Assessment & Plan Problem List: (1) Bipolar disorder ICD Codes: F31.9 - Bipolar disorder, unspecified Status: Acute Assessment & Plan: Patient shows a modest improvement today. I will consult OT to help with physical activities. Will increase Abilify to 15 mg daily for reported auditory hallucinations and also to help with mood. Will continue the completion of paperwork for ECT. Recommendations from Dr. Rollins appreciated. I will reconsult hospitalist again due to green discharge Assessment & Plan Estimated LOS: days Justification for Cont. Inpt. Patient continues to be psychotic/depressed, needs psychiatric hospitalization for stabilization Problem Qualifiers (1) Bipolar disorder: Lele Stanley MD Aug 18, 2017 11:12
[2017-08-18] MEDS: ENOXAPARIN SODIUM 40 MG/0.4 ML SYRINGE SQ SCH (11:42)
[2017-08-18 12:57] LABS: BACTERIA, URINE RARE /hpf; BILIRUBIN, URINE NEG (NEG); BLOOD, URINE NEG (NEG); GLUCOSE,URINE NEG (NEG); KETONE, URINE NEG (NEG); MUCUS URINE FEW /lpf (OCC); NITRITE,URINE NEG (NEG); URINE COLOR YELLOW (YELLW/STRAW); URINE LEUKOCYTE ESTERASE LARGE (NEG)
[2017-08-18 18:37] VITALS: BP 111/61; PULSE 79; RESP 16; TEMP 97.9; O2SAT 97
[2017-08-19 05:27] VITALS: BP 115/70; PULSE 77; RESP 15; TEMP 97.8; O2SAT 98
[2017-08-19] MEDS: NICOTINE 21 MG/24 HR PATCH T-DERMAL SCH (09:00)
[2017-08-19] MEDS: REMOVE OLD PATCH T-DERMAL SCH (09:00)
[2017-08-19] MEDS: PARoxetine HCL 20 MG TAB PO SCH (09:31)
[2017-08-19] MEDS: ARIPiprazole 15 MG TAB PO SCH (09:31)
[2017-08-19] MEDS: LITHIUM CARBONATE 450 MG CONTROLLED RELEASE TAB PO SCH ×2 (09:31→20:42)
[2017-08-19] MEDS: cefTRIAXone INJ 1,000 MG in SODIUM CHLORIDE 0.9% INJ 100 ML IV SCH (10:00)
[2017-08-19] MEDS: ENOXAPARIN SODIUM 40 MG/0.4 ML SYRINGE SQ SCH (12:00)
--- NOTE | 2017-08-19 12:27 | HHI.PYPN ---
Subjective Remarks Patient was seen today for psychiatric reevaluation. Patient is found in her bed, guarded, irritable, but able to answer most of my questions. Patient reports that she has been feeling better, she reports good sleep, good energy, good appetite. She denies suicidal and homicidal ideation, she denies visual and auditory hallucinations. However, the patient continues to be expanding most of the day in bed, very seclusive, selectively mute, minimally engaged in a conversation, but definitely better than before. She has been compliant with her medications, no significant side effects. Review of Systems Except as stated in HPI: all other systems reviewed are Neg Mental Status Examination Appearance: Disheveled Consciousness: Alert Orientation: Person, Place (at least) Motor Activity: Other (Ongoing psychomotor retardation) Speech: Slow, Other (Increased speech latency) Language: Adequate Fund of Knowledge: Adequate Attention and Concentration: Other (Poor) Memory: Impaired (On clinical exam) Mood: Other ("okay") Affect: Other (Restricted and dysphoric) Thought Process & Associations: Other (Slowed) Thought Content: Other (Vague) Hallucination Type: None Delusion Type: None Suicidal Ideation: No Suicidal Plan: No Suicidal Intention: No Homicidal Ideation: No Homicidal Plan: No Homicidal Intention: No Insight: Poor Judgment: Poor Results Labs Test 08/18/17 12:38 Urine Color YELLOW Urine Turbidity CLEAR Urine pH 8.0 Urine Specific [place] 1.011 Urine Protein NEG mg/dL Urine Glucose (UA) NEG mg/dL Urine Ketones NEG mg/dL Urine Occult Blood NEG Urine Nitrite NEG Urine Bilirubin NEG Urine Urobilinogen LESS THAN 2.0 MG/DL Urine Leukocyte Esterase LARGE Urine RBC 4 /hpf Urine WBC 66 /hpf Urine Bacteria RARE /hpf Urine Mucus FEW /lpf Microscopic Urinalysis Comment CULTURE INDICATED Chlamydia trachomatis DNA (PCR) NOT DETECTED Neisseria gonorrhoeae DNA (PCR) NOT DETECTED Date/Time Source Procedure Growth Status 08/07/17 07:00 Blood Peripheral Aerobic Blood Culture - Final NO GROWTH IN 5 DAYS Complete 08/07/17 07:00 Blood Peripheral Anaerobic Blood Culture - Final NO GROWTH IN 5 DAYS Complete 08/18/17 12:38 Urine Clean Catch Urine Culture Pending Received Vitals/IOs Vital Signs Date Time Temp Pulse Resp B/P (MAP) Pulse Ox O2 Delivery O2 Flow Rate FiO2 08/19/17 05:27 97.8 77 15 115/70 (85) 98 Intake and Output 08/19/17 08/19/17 08/20/17 08:00 16:00 00:00 Intake Total 480 ml 240 ml Balance 480 ml 240 ml Assessment & Plan Problem List: (1) Depressive disorder ICD Codes: F32.9 - Major depressive disorder, single episode, unspecified Assessment & Plan: Patient shows slight improvement in affect and mood. She is also a little bit more talkative. Will increase Paxil to 20 mg daily for depression. Order lithium levels Assessment & Plan Estimated LOS: days Justification for Cont. Inpt. Patient needs to continue psychiatric hospitalization for safety and stabilization. Lele Stanley MD Aug 19, 2017 12:27
--- NOTE | 2017-08-19 13:48 | HHI.PR ---
Subjective Remarks not talking much denies any symptoms denies any med conditions per emr, has htn- but not on any med had greenish discharge yesterday Objective Vital Signs Date Time Temp Pulse Resp B/P (MAP) Pulse Ox O2 Delivery O2 Flow Rate FiO2 08/19/17 05:27 97.8 77 15 115/70 (85) 98 08/18/17 18:37 97.9 79 16 111/61 (78) 97 I/O 08/18/17 08/18/17 08/18/17 08/19/17 08/19/17 08/19/17 06:59 14:59 22:59 06:59 14:59 22:59 Intake Total 240 ml 360 ml 2520 ml 240 ml 480 ml Balance 240 ml 360 ml 2520 ml 240 ml 480 ml Intake Oral 240 ml 360 ml 2520 ml 240 ml 480 ml # Voids 1 4 1 Objective Remarks Awake, alert, oriented. Has flat affect. Only answer questions by nodding or shaking her head or answering in short sentence form. Heart rate is regular, no murmur appreciated. Lungs sounds are clear. Decreased air entry. Abdomen is soft and nontender. No rebound. No guarding. Lower extremities did not reveal any significant edema or asymmetry. : she refused for me to examine her external genital with her pants down, states she wont want this even with nurse present A/P Assessment and Plan Impression: Bipolar disorder. Acute psychosis per notes. Currently looking as though she has major depressive episodes with flat affect. Management per psychiatry. Self-care neglect Greenish discharge per vagina from staff report UTI Medications noncompliance. History of hypertension per notes. However not on any antihypertensive medications. Patient also denies any history of hypertension. Blood pressure was somewhat slow initially a few days ago but this is now resolved. Leukocytosis. Secondary to dehydration. Resolved. Lactic acid acidosis. Again resolved with IV fluids. Secondary to dehydration. Acute kidney injury secondary to severe dehydration. Resolved. Hypokalemia. Resolved. Patient denies any recent nausea/vomiting/diarrhea. Chronic tobacco abuse Plan: denies acute med conditions hypokalemia resolved BP is stable hx of bipolar -with flat affect, not talking much greenish vaginal discharge per nurse but refused physical exam i had ordered UA, GC and chlamydia screens yesterday reviewed UA is dirty, started on rocephin 1 g iv q24hrs will follow up cx results GC chlamydia negative bacterial vaginosis panel ordered will follow up dvt prophyalxis with lovenox Discharge Planning Per psychiatry Laly Alcantar MD Aug 19, 2017 13:48
[2017-08-19 18:00] VITALS: BP 101/60; PULSE 76; RESP 16; TEMP 97.7; O2SAT 98
[2017-08-20 06:26] VITALS: BP 114/71; PULSE 74; RESP 18; TEMP 98.4; O2SAT 97
[2017-08-20] MEDS: ARIPiprazole 15 MG TAB PO SCH (09:29)
[2017-08-20] MEDS: LITHIUM CARBONATE 450 MG CONTROLLED RELEASE TAB PO SCH ×2 (09:30→21:06)
[2017-08-20] MEDS: PARoxetine HCL 20 MG TAB PO SCH (09:30)
[2017-08-20] MEDS: REMOVE OLD PATCH T-DERMAL SCH (09:32)
[2017-08-20] MEDS: NICOTINE 21 MG/24 HR PATCH T-DERMAL SCH (09:33)
[2017-08-20] MEDS: cefTRIAXone INJ 1,000 MG in SODIUM CHLORIDE 0.9% INJ 100 ML IV SCH (10:12)
--- NOTE | 2017-08-20 12:09 | HHI.PR ---
Subjective Remarks in no acute distress. denies pain. no fever. questionable vaginal discharge. d/w the RN and no acute issues over night. Objective Vitals Vital Signs Date Time Temp Pulse Resp B/P (MAP) Pulse Ox O2 Delivery O2 Flow Rate FiO2 08/20/17 06:26 98.4 74 18 114/71 (85) 97 08/19/17 18:00 97.7 76 16 101/60 (74) 98 I/O 08/19/17 08/19/17 08/19/17 08/20/17 08/20/17 08/20/17 07:00 15:00 23:00 07:00 15:00 23:00 Intake Total 240 ml 960 ml 240 ml 120 ml 600 ml Balance 240 ml 960 ml 240 ml 120 ml 600 ml Intake Oral 240 ml 960 ml 240 ml 120 ml 600 ml # Voids 1 2 Imaging Last Impressions Chest X-Ray 08/08/17 0000 Signed Impressions: Service Date/Time: Tuesday, August 08, 2017 08:13 - CONCLUSION: No acute disease. Simone Short MD Head CT 08/07/17 1252 Signed Impressions: Service Date/Time: Monday, August 07, 2017 14:55 - CONCLUSION: No acute intracranial disease. Donnie Robledo MD Objective Remarks GENERAL: This is a well-nourished, well-developed patient, in no apparent distress. CARDIOVASCULAR: Regular rate and regular rhythm without murmurs, gallops, or rubs. RESPIRATORY: Clear to auscultation. Breath sounds equal bilaterally. No wheezes , rales, or rhonchi. GASTROINTESTINAL: Abdomen soft, non-tender, nondistended. Normal, active bowel sounds MUSCULOSKELETAL: Extremities without clubbing, cyanosis, or edema. NEURO: Alert & Oriented x4 to person, place, time, situation. Moves all ext x4 Medications and IVs Inpatient Medications Acetaminophen (Tylenol) 650 mg Q4H PRN PO Pain 1-5 or Temp >101F; Start at 20:00 Al Hydrox/Mg Hydrox/Simethicone (Mag-Al Plus Susp Liq) 30 ml Q6H PRN PO DYSPEPSIA; Start 08/07/17 at 20:00 Aripiprazole (Abilify) 15 mg DAILY PO Last administered on 4/5/18at 09:29; Start 08/19/17 at 09:00 Ceftriaxone Sodium 1000 mg/ Sodium Chloride 100 ml @ 200 mls/hr Q24H IV Last administered on 08/20/17at 10:12; Start 08/19/17 at 10:00 Diphenhydramine HCl (Benadryl) 50 mg HS PRN PO INSOMNIA Last administered on at 20:41; Start 08/08/17 at 21:00 Enoxaparin Sodium (Lovenox Inj) 40 mg Q24H SQ Last administered on 08/19/17at 12: 00; Start 08/10/17 at 12:00 Haloperidol (Haldol) 5 mg BID PO Last administered on 08/11/17 10:17; Start at 09:00; Stop 08/11/17 at 12:56; Status DC Lactulose (Lactulose Liq) 30 ml ONCE ONCE PO Last administered on 08/07/17 17 :23; Start 08/07/17 at 16:00; Stop 08/07/17 at 16:01; Status DC [place] Carbonate (Eskalith Sr) 450 mg Q12HR PO Last administered on 08/20/17 09:30; Start 08/13/17 at 21:00 [place] Carbonate (Lithotabs) 300 mg Q12HR PO Last administered on 08/13/17at 09 :23; Start 08/11/17 at 21:00; Stop 08/13/17 at 12:24; Status DC Lorazepam (Ativan) 1 mg Q6H PRN PO MODERATE TO SEVERE ANXIETY; Start 08/08/17 at 09:00 Magnesium Hydroxide (Milk Of Magnesia Liq) 30 ml DAILY PRN PO CONSTIPATION; Start 08/07/17 at 20:00 Magnesium Oxide (Mag-Ox) 400 mg ONCE ONCE PO Last administered on 08/09/17at 10 :00; Start 08/09/17 at 10:00; Stop 08/09/17 at 10:01; Status DC Miscellaneous (Pill Splitter) 1 ea UNSCH PRN OTHER SEE LABEL COMMENTS; Start at 11:30 Miscellaneous Information 1 DAILY T-DERMAL Last administered on 08/20/17at 09:32 ; Start 08/08/17 at 09:00 Nicotine (Habitrol 21 Mg Patch.24 Hr) 1 patch DAILY T-DERMAL Last administered on 08/20/17at 09:33; Start 08/07/17 at 20:00 Olanzapine (ZyPREXA INJ) 10 mg ONCE ONCE IM ; Start 08/08/17 at 01:30; Stop at 01:31; Status DC Paroxetine HCl (Paxil) 20 mg DAILY PO Last administered on 08/20/17at 09:30; Start 08/20/17 at 09:00 Potassium Chloride (KCl) 30 meq ONCE ONCE PO Last administered on 08/09/17at 10 :00; Start 08/09/17 at 10:00; Stop 08/09/17 at 10:01; Status DC Sodium Chloride 500 ml @ 500 mls/hr BOLUS ONCE IV Last administered on at 08:00; Start 08/08/17 at 08:00; Stop 08/08/17 at 08:59; Status DC A/P Problem List: (1) Hypertension ICD Code: I10 - Essential (primary) hypertension (2) YUMI (acute kidney injury) ICD Code: N17.9 - Acute kidney failure, unspecified (3) Hypokalemia ICD Code: E87.6 - Hypokalemia (4) Dehydration ICD Code: E86.0 - Dehydration (5) Bipolar disorder ICD Code: F31.9 - Bipolar disorder, unspecified Status: Acute (6) Unspecified psychosis ICD Code: F29 - Unspecified psychosis not due to a substance or known physiological condition Assessment and Plan A/P Bipolar disorder. Acute psychosis per notes. Currently looking as though she has major depressive episodes with flat affect. Management per psychiatry. Greenish discharge per vagina from staff report / questionable UTI GC chlamydia negative- continue with IV Rocephin- follow the UC. History of hypertension per notes. However not on any antihypertensive medications. Patient also denies any history of hypertension. Blood pressure was somewhat slow initially a few days ago but this is now resolved. Acute kidney injury secondary to severe dehydration. Resolved. Chronic tobacco abuse Problem Qualifiers (1) Bipolar disorder: Janay Villalba MD Aug 20, 2017 12:09
[2017-08-20] MEDS: ENOXAPARIN SODIUM 40 MG/0.4 ML SYRINGE SQ SCH (12:57)
--- NOTE | 2017-08-20 13:41 | HHI.PYPN ---
Subjective Remarks On psychiatric evaluation today patient remains guarded, minimally engageable in a conversation. Patient reports feeling okay, reports good sleep, good appetite. Patient states that yesterday she tried to get out of bed, "but I was just tired". Patient remains silence for most of my questions, with visible speech delay and blocking thought. She denies suicidal and homicidal ideation, she denies visual and auditory hallucinations. She has been compliant with medications, with no significant side effects. Patient remains seclusive, with marked psychomotor retardation. Review of Systems Except as stated in HPI: all other systems reviewed are Neg Mental Status Examination Appearance: Disheveled Consciousness: Alert Orientation: Person, Place (at least) Motor Activity: Other (Ongoing psychomotor retardation) Speech: Slow, Other (Increased speech latency) Language: Adequate Fund of Knowledge: Adequate Attention and Concentration: Other (Poor) Memory: Impaired (On clinical exam) Mood: Other ("okay") Affect: Other (Restricted and dysphoric) Thought Process & Associations: Other (Slowed) Thought Content: Other (Vague) Hallucination Type: None Delusion Type: None Suicidal Ideation: No Suicidal Plan: No Suicidal Intention: No Homicidal Ideation: No Homicidal Plan: No Homicidal Intention: No Insight: Poor Judgment: Poor Results Labs Test 08/19/17 14:41 [place] Level 0.9 MEQ/L Date/Time Source Procedure Growth Status 08/07/17 07:00 Blood Peripheral Aerobic Blood Culture - Final NO GROWTH IN 5 DAYS Complete 08/07/17 07:00 Blood Peripheral Anaerobic Blood Culture - Final NO GROWTH IN 5 DAYS Complete 08/18/17 12:38 Urine Clean Catch Urine Culture - Final <10,000 CFU/ML MIXED GRAM POSITIVE FL... Complete Vitals/IOs Vital Signs Date Time Temp Pulse Resp B/P (MAP) Pulse Ox O2 Delivery O2 Flow Rate FiO2 08/20/17 06:26 98.4 74 18 114/71 (85) 97 Intake and Output 08/20/17 08/20/17 08/21/17 08:00 16:00 00:00 Intake Total 120 ml 1170 ml Balance 120 ml 1170 ml Assessment & Plan Problem List: (1) Depressive disorder ICD Codes: F32.9 - Major depressive disorder, single episode, unspecified Assessment & Plan: Extensive psychoeducation, supportive motivation provided today. Patient shows very modest response to medications. Will continue pursuing ECT. Assessment & Plan Estimated LOS: days Justification for Cont. Inpt. Patient remains very depressed and psychomotor retarded. Lele Stanley MD Aug 20, 2017 13:41
[2017-08-20 18:05] VITALS: BP 102/55; PULSE 66; RESP 16; TEMP 98.1; O2SAT 98
[2017-08-21 05:59] VITALS: BP 124/74; PULSE 77; RESP 17; TEMP 98.3; O2SAT 96
--- NOTE | 2017-08-21 09:40 | HHI.PYPN ---
Subjective Remarks Patient is here for follow, chart reviewed. Discussion nursing staff reported the patient continues to be seclusive to room compliant with medications, resistance to participation in groups and activities, refused vaginal swabs yesterday. Patient was found lying hospital bed noted to be disheveled and slightly malodorous. Patient states she is feeling "tired" and her mood has been "okay" but continues report feeling depressed. She states that she is feeling just as depressed as she did when she first came to the hospital but denying any suicide ideations. Patient states she has yet to take a shower plan to do that today as well as was encouraged to participate in groups and activities which she states will try. Patient reports eating and drinking well no difficulty or bowel movement. Patient was also advised that her lithium level was within therapeutic range which she acknowledged. Review of Systems Except as stated in HPI: all other systems reviewed are Neg Mental Status Examination Appearance: Disheveled, Malodorous (Slightly) Consciousness: Alert Orientation: Person, Place (at least) Motor Activity: Other (Ongoing psychomotor retardation) Speech: Slow, Other (Increased speech latency) Language: Adequate Fund of Knowledge: Adequate Attention and Concentration: Other (Poor) Memory: Impaired (On clinical exam) Mood: Sad Affect: Sad, Other (Restricted and dysphoric) Thought Process & Associations: Other (Slowed) Thought Content: Other (Vague) Hallucination Type: None Delusion Type: None Suicidal Ideation: No Suicidal Plan: No Suicidal Intention: No Homicidal Ideation: No Homicidal Plan: No Homicidal Intention: No Insight: Poor Judgment: Poor Results Labs Date/Time Source Procedure Growth Status 08/07/17 07:00 Blood Peripheral Aerobic Blood Culture - Final NO GROWTH IN 5 DAYS Complete 08/07/17 07:00 Blood Peripheral Anaerobic Blood Culture - Final NO GROWTH IN 5 DAYS Complete 08/18/17 12:38 Urine Clean Catch Urine Culture - Final <10,000 CFU/ML MIXED GRAM POSITIVE FL... Complete Vitals/IOs Vital Signs Date Time Temp Pulse Resp B/P (MAP) Pulse Ox O2 Delivery O2 Flow Rate FiO2 08/21/17 05:59 98.3 77 17 124/74 (91) 96 Intake and Output 08/21/17 08/21/17 08/22/17 08:00 16:00 00:00 Intake Total 240 ml Balance 240 ml Assessment & Plan Problem List: (1) Depressive disorder ICD Codes: F32.9 - Major depressive disorder, single episode, unspecified Assessment & Plan Patient this time continues to appear dysphoric with some psychomotor retardation, unmotivated, although noted to have been eating her meals but noted to be slightly malodorous and disheveled with no participation in groups and activities. Patient encouraged to comply with evaluation of vaginal discharge as well as to participate in groups and activities and to maintain personal hygiene. We will continue current treatment for now, continue monitor mood and behavior. Discharge planning in progress. Justification for Cont. Inpt. At risk for further decompensation if at lower level of care Discharge Planning To be determined. Donnie Packer MD Aug 21, 2017 09:40
[2017-08-21] MEDS: ARIPiprazole 15 MG TAB PO SCH (10:25)
[2017-08-21] MEDS: PARoxetine HCL 20 MG TAB PO SCH (10:25)
[2017-08-21] MEDS: LITHIUM CARBONATE 450 MG CONTROLLED RELEASE TAB PO SCH ×2 (10:25→20:51)
[2017-08-21] MEDS: REMOVE OLD PATCH T-DERMAL SCH (10:25)
[2017-08-21] MEDS: NICOTINE 21 MG/24 HR PATCH T-DERMAL SCH (10:25)
[2017-08-21] MEDS: cefTRIAXone INJ 1,000 MG in SODIUM CHLORIDE 0.9% INJ 100 ML IV SCH (10:28)
--- NOTE | 2017-08-21 12:03 | HHI.PR ---
Subjective Remarks in no acute distress. resting comfortably. vaginal discharge is better. Objective Vitals Vital Signs Date Time Temp Pulse Resp B/P (MAP) Pulse Ox O2 Delivery O2 Flow Rate FiO2 08/21/17 05:59 98.3 77 17 124/74 (91) 96 08/20/17 18:05 98.1 66 16 102/55 (71) 98 I/O 08/20/17 08/20/17 08/20/17 08/21/17 08/21/17 08/21/17 07:00 15:00 23:00 07:00 15:00 23:00 Intake Total 120 ml 1170 ml 4890 ml 240 ml 240 ml Balance 120 ml 1170 ml 4890 ml 240 ml 240 ml Intake Oral 120 ml 1170 ml 4890 ml 240 ml 240 ml # Voids 2 4 Imaging Last Impressions Chest X-Ray 08/08/17 0000 Signed Impressions: Service Date/Time: Tuesday, August 08, 2017 08:13 - CONCLUSION: No acute disease. Simone Short MD Head CT 08/07/17 1252 Signed Impressions: Service Date/Time: Monday, August 07, 2017 14:55 - CONCLUSION: No acute intracranial disease. Donnie Robledo MD Objective Remarks GENERAL: This is a well-nourished, well-developed patient, in no apparent distress. CARDIOVASCULAR: Regular rate and regular rhythm without murmurs, gallops, or rubs. RESPIRATORY: Clear to auscultation. Breath sounds equal bilaterally. No wheezes , rales, or rhonchi. GASTROINTESTINAL: Abdomen soft, non-tender, nondistended. Normal, active bowel sounds MUSCULOSKELETAL: Extremities without clubbing, cyanosis, or edema. NEURO: Alert & Oriented x4 to person, place, time, situation. Moves all ext x4 Medications and IVs Inpatient Medications Acetaminophen (Tylenol) 650 mg Q4H PRN PO Pain 1-5 or Temp >101F; Start at 20:00 Al Hydrox/Mg Hydrox/Simethicone (Mag-Al Plus Susp Liq) 30 ml Q6H PRN PO DYSPEPSIA; Start 08/07/17 at 20:00 Aripiprazole (Abilify) 15 mg DAILY PO Last administered on 08/21/17at 10:25; Start 08/19/17 at 09:00 Ceftriaxone Sodium 1000 mg/ Sodium Chloride 100 ml @ 200 mls/hr Q24H IV Last administered on 08/21/17at 10:28; Start 08/19/17 at 10:00 Diphenhydramine HCl (Benadryl) 50 mg HS PRN PO INSOMNIA Last administered on at 20:41; Start 08/08/17 at 21:00 Enoxaparin Sodium (Lovenox Inj) 40 mg Q24H SQ Last administered on 08/20/17at 12: 57; Start 08/10/17 at 12:00 Haloperidol (Haldol) 5 mg BID PO Last administered on 08/11/17at 10:17; Start at 09:00; Stop 08/11/17 at 12:56; Status DC Lactulose (Lactulose Liq) 30 ml ONCE ONCE PO Last administered on 08/07/17at 17 :23; Start 08/07/17 at 16:00; Stop 08/07/17 at 16:01; Status DC [place] Carbonate (Eskalith Sr) 450 mg Q12HR PO Last administered on 08/21/17at 10:25; Start 08/13/17 at 21:00 [place] Carbonate (Lithotabs) 300 mg Q12HR PO Last administered on 08/13/17at 09 :23; Start 08/11/17 at 21:00; Stop 08/13/17 at 12:24; Status DC Lorazepam (Ativan) 1 mg Q6H PRN PO MODERATE TO SEVERE ANXIETY; Start 08/08/17 at 09:00 Magnesium Hydroxide (Milk Of Magnesia Liq) 30 ml DAILY PRN PO CONSTIPATION; Start 08/07/17 at 20:00 Magnesium Oxide (Mag-Ox) 400 mg ONCE ONCE PO Last administered on 08/09/17at 10 :00; Start 08/09/17 at 10:00; Stop 08/09/17 at 10:01; Status DC Miscellaneous (Pill Splitter) 1 ea UNSCH PRN OTHER SEE LABEL COMMENTS; Start at 11:30 Miscellaneous Information 1 DAILY T-DERMAL Last administered on 08/20/17at 09:32 ; Start 08/08/17 at 09:00 Nicotine (Habitrol 21 Mg Patch.24 Hr) 1 patch DAILY T-DERMAL Last administered on 08/20/17at 09:33; Start 08/07/17 at 20:00 Olanzapine (ZyPREXA INJ) 10 mg ONCE ONCE IM ; Start 08/08/17 at 01:30; Stop at 01:31; Status DC Paroxetine HCl (Paxil) 20 mg DAILY PO Last administered on 08/21/17at 10:25; Start 08/20/17 at 09:00 Potassium Chloride (KCl) 30 meq ONCE ONCE PO Last administered on 08/09/17at 10 :00; Start 08/09/17 at 10:00; Stop 08/09/17 at 10:01; Status DC Sodium Chloride 500 ml @ 500 mls/hr BOLUS ONCE IV Last administered on at 08:00; Start 08/08/17 at 08:00; Stop 08/08/17 at 08:59; Status DC A/P Problem List: (1) Hypertension ICD Code: I10 - Essential (primary) hypertension (2) YUMI (acute kidney injury) ICD Code: N17.9 - Acute kidney failure, unspecified (3) Hypokalemia ICD Code: E87.6 - Hypokalemia (4) Dehydration ICD Code: E86.0 - Dehydration (5) Bipolar disorder ICD Code: F31.9 - Bipolar disorder, unspecified Status: Acute (6) Unspecified psychosis ICD Code: F29 - Unspecified psychosis not due to a substance or known physiological condition Assessment and Plan A/P Bipolar disorder. Acute psychosis per notes. Currently looking as though she has major depressive episodes with flat affect. Management per psychiatry. Greenish discharge per vagina from staff report / questionable UTI- now has improved. GC chlamydia negative- UC with gram positive doug- will dc antibiotic. History of hypertension per notes. However not on any antihypertensive medications. Patient also denies any history of hypertension. Blood pressure was somewhat slow initially a few days ago but this is now resolved. Acute kidney injury secondary to severe dehydration. Resolved. Chronic tobacco abuse Problem Qualifiers (1) Bipolar disorder: Janay Villalba MD Aug 21, 2017 12:03
[2017-08-21] MEDS: ENOXAPARIN SODIUM 40 MG/0.4 ML SYRINGE SQ SCH (12:10)
[2017-08-22 06:00] VITALS: BP 136/57; PULSE 77; RESP 15; TEMP 97.8; O2SAT 77
[2017-08-22] MEDS: LITHIUM CARBONATE 450 MG CONTROLLED RELEASE TAB PO SCH ×2 (08:37→20:47)
[2017-08-22] MEDS: PARoxetine HCL 20 MG TAB PO SCH (08:37)
[2017-08-22] MEDS: ARIPiprazole 15 MG TAB PO SCH (08:37)
[2017-08-22] MEDS: NICOTINE 21 MG/24 HR PATCH T-DERMAL SCH (08:40)
[2017-08-22] MEDS: REMOVE OLD PATCH T-DERMAL SCH (08:40)
--- NOTE | 2017-08-22 09:32 | HHI.PYPN ---
Subjective Remarks Patient seen for follow, chart reviewed. Discussion nursing staff reported the patient noted to be talking more, eating breakfast, continues to have vaginal discharge and not allowing nursing to obtain swab for lab. Patient was found lying hospital bed noted to be disheveled and malodorous with poor eye contact. Patient states that she is feeling "good", continues report feeling depressed but was not able to elaborate as to why. Patient states that she does not go to group yesterday and when encouraged to shower today and attend group patient did not respond. Patient was encouraged to comply with allowing nursing staff to obtain vaginal discharge sample for evaluation and lab. Patient continues to be noted to be seclusive to bed, not participating any groups or activities but is noted to be eating. Review of Systems Except as stated in HPI: all other systems reviewed are Neg Mental Status Examination Appearance: Disheveled, Malodorous (Slightly) Consciousness: Alert Orientation: Person, Place (at least) Motor Activity: Other (Ongoing psychomotor retardation) Speech: Slow, Other (Increased speech latency) Language: Adequate Fund of Knowledge: Adequate Attention and Concentration: Other (Poor) Memory: Impaired (On clinical exam) Mood: Sad Affect: Sad, Other (Restricted and dysphoric) Thought Process & Associations: Other (Slowed) Thought Content: Other (Vague) Hallucination Type: None Delusion Type: None Suicidal Ideation: No Suicidal Plan: No Suicidal Intention: No Homicidal Ideation: No Homicidal Plan: No Homicidal Intention: No Insight: Poor Judgment: Poor Results Labs Date/Time Source Procedure Growth Status 08/07/17 07:00 Blood Peripheral Aerobic Blood Culture - Final NO GROWTH IN 5 DAYS Complete 08/07/17 07:00 Blood Peripheral Anaerobic Blood Culture - Final NO GROWTH IN 5 DAYS Complete 08/18/17 12:38 Urine Clean Catch Urine Culture - Final <10,000 CFU/ML MIXED GRAM POSITIVE FL... Complete Vitals/IOs Vital Signs Date Time Temp Pulse Resp B/P (MAP) Pulse Ox O2 Delivery O2 Flow Rate FiO2 08/22/17 06:00 97.8 77 15 136/57 (83) 77 Assessment & Plan Problem List: (1) Depressive disorder ICD Codes: F32.9 - Major depressive disorder, single episode, unspecified Assessment & Plan Patient continues to have poor hygiene noted to be malodorous, disheveled. Patient continues to endorse feeling depressed, although she is eating and not participating in any groups or activities or participating in self-care. We will increase Paxil to 30 mg p.o. daily for depression, continue rest of medications. Continue to encourage patient to participate in self hygiene, allowing nursing staff to obtain vaginal swabs for analysis, it encourage patient to participate in groups and activities. Discharge planning in progress Justification for Cont. Inpt. At risk for further decompensation if at lower level of care Donnie Packer MD Aug 22, 2017 09:31
--- NOTE | 2017-08-22 11:24 | HHI.PR ---
Subjective Remarks in no acute distress. no new complaints. Objective Vitals Vital Signs Date Time Temp Pulse Resp B/P (MAP) Pulse Ox O2 Delivery O2 Flow Rate FiO2 08/22/17 06:00 97.8 77 15 136/57 (83) 77 I/O 08/21/17 08/21/17 08/21/17 08/22/17 08/22/17 08/22/17 07:00 15:00 23:00 07:00 15:00 23:00 Intake Total 240 ml 1080 ml 120 ml 240 ml Balance 240 ml 1080 ml 120 ml 240 ml Intake Oral 240 ml 1080 ml 120 ml 240 ml # Voids 1 1 3 Imaging Last Impressions Chest X-Ray 08/08/17 0000 Signed Impressions: Service Date/Time: Tuesday, August 08, 2017 08:13 - CONCLUSION: No acute disease. Simone Short MD Head CT 08/07/17 1252 Signed Impressions: Service Date/Time: Monday, August 07, 2017 14:55 - CONCLUSION: No acute intracranial disease. Donnie Robledo MD Objective Remarks GENERAL: This is a well-nourished, well-developed patient, in no apparent distress. CARDIOVASCULAR: Regular rate and regular rhythm without murmurs, gallops, or rubs. RESPIRATORY: Clear to auscultation. Breath sounds equal bilaterally. No wheezes , rales, or rhonchi. GASTROINTESTINAL: Abdomen soft, non-tender, nondistended. Normal, active bowel sounds MUSCULOSKELETAL: Extremities without clubbing, cyanosis, or edema. NEURO: Alert & Oriented x4 to person, place, time, situation. Moves all ext x4 Medications and IVs Inpatient Medications Acetaminophen (Tylenol) 650 mg Q4H PRN PO Pain 1-5 or Temp >101F; Start at 20:00 Al Hydrox/Mg Hydrox/Simethicone (Mag-Al Plus Susp Liq) 30 ml Q6H PRN PO DYSPEPSIA; Start 08/07/17 at 20:00 Aripiprazole (Abilify) 15 mg DAILY PO Last administered on 08/22/17at 08:37; Start 08/19/17 at 09:00 Ceftriaxone Sodium 1000 mg/ Sodium Chloride 100 ml @ 200 mls/hr Q24H IV Last administered on 08/21/17at 10:28; Start 08/19/17 at 10:00; Stop 08/21/17 at 12:04; Status DC Diphenhydramine HCl (Benadryl) 50 mg HS PRN PO INSOMNIA Last administered on at 20:41; Start 08/08/17 at 21:00 Enoxaparin Sodium (Lovenox Inj) 40 mg Q24H SQ Last administered on 08/21/17at 12: 10; Start 08/10/17 at 12:00 Haloperidol (Haldol) 5 mg BID PO Last administered on 08/11/17at 10:17; Start at 09:00; Stop 08/11/17 at 12:56; Status DC Lactulose (Lactulose Liq) 30 ml ONCE ONCE PO Last administered on 08/07/17at 17 :23; Start 08/07/17 at 16:00; Stop 08/07/17 at 16:01; Status DC [place] Carbonate (Eskalith Sr) 450 mg Q12HR PO Last administered on 08/22/17at 08:37; Start 08/13/17 at 21:00 [place] Carbonate (Lithotabs) 300 mg Q12HR PO Last administered on 08/13/17at 09 :23; Start 08/11/17 at 21:00; Stop 08/13/17 at 12:24; Status DC Lorazepam (Ativan) 1 mg Q6H PRN PO MODERATE TO SEVERE ANXIETY; Start 08/08/17 at 09:00 Magnesium Hydroxide (Milk Of Magnesia Liq) 30 ml DAILY PRN PO CONSTIPATION; Start 08/07/17 at 20:00 Magnesium Oxide (Mag-Ox) 400 mg ONCE ONCE PO Last administered on 08/09/17at 10 :00; Start 08/09/17 at 10:00; Stop 08/09/17 at 10:01; Status DC Miscellaneous (Pill Splitter) 1 ea UNSCH PRN OTHER SEE LABEL COMMENTS; Start at 11:30 Miscellaneous Information 1 DAILY T-DERMAL Last administered on 08/22/17at 08:40 ; Start 08/08/17 at 09:00 Nicotine (Habitrol 21 Mg Patch.24 Hr) 1 patch DAILY T-DERMAL Last administered on 08/22/17at 08:40; Start 08/07/17 at 20:00 Olanzapine (ZyPREXA INJ) 10 mg ONCE ONCE IM ; Start 08/08/17 at 01:30; Stop at 01:31; Status DC Paroxetine HCl (Paxil) 30 mg DAILY PO ; Start 08/23/17 at 09:00 Potassium Chloride (KCl) 30 meq ONCE ONCE PO Last administered on 08/09/17at 10 :00; Start 08/09/17 at 10:00; Stop 08/09/17 at 10:01; Status DC Sodium Chloride 500 ml @ 500 mls/hr BOLUS ONCE IV Last administered on at 08:00; Start 08/08/17 at 08:00; Stop 08/08/17 at 08:59; Status DC A/P Problem List: (1) Hypertension ICD Code: I10 - Essential (primary) hypertension (2) UYMI (acute kidney injury) ICD Code: N17.9 - Acute kidney failure, unspecified (3) Hypokalemia ICD Code: E87.6 - Hypokalemia (4) Dehydration ICD Code: E86.0 - Dehydration (5) Bipolar disorder ICD Code: F31.9 - Bipolar disorder, unspecified Status: Acute (6) Unspecified psychosis ICD Code: F29 - Unspecified psychosis not due to a substance or known physiological condition Assessment and Plan A/P Bipolar disorder. Acute psychosis per notes. Currently looking as though she has major depressive episodes with flat affect. Management per psychiatry. Greenish discharge per vagina from staff report / questionable UTI- now has improved. GC chlamydia negative- UC with gram positive doug-dc'ed antibiotics. History of hypertension per notes. However not on any antihypertensive medications. Patient also denies any history of hypertension. Blood pressure was somewhat slow initially a few days ago but this is now resolved. Acute kidney injury secondary to severe dehydration. Resolved. Chronic tobacco abuse Discharge Planning medically ok to transfer out of med-psych - Problem Qualifiers (1) Bipolar disorder: Janay Villalba MD Aug 22, 2017 11:24
[2017-08-22] MEDS: ENOXAPARIN SODIUM 40 MG/0.4 ML SYRINGE SQ SCH (11:27)
[2017-08-22 18:03] VITALS: BP 142/62; PULSE 67; RESP 16; TEMP 97.6; O2SAT 96
[2017-08-23 06:00] VITALS: BP 103/53; PULSE 66; RESP 16; TEMP 98.7; O2SAT 99
[2017-08-23] MEDS: NICOTINE 21 MG/24 HR PATCH T-DERMAL SCH (09:00)
[2017-08-23] MEDS: REMOVE OLD PATCH T-DERMAL SCH (09:00)
[2017-08-23] MEDS: PARoxetine HCL 20 MG TAB PO SCH (09:26)
[2017-08-23] MEDS: LITHIUM CARBONATE 450 MG CONTROLLED RELEASE TAB PO SCH ×2 (09:26→20:09)
[2017-08-23] MEDS: ARIPiprazole 15 MG TAB PO SCH (09:27)
[2017-08-23] MEDS: ENOXAPARIN SODIUM 40 MG/0.4 ML SYRINGE SQ SCH (12:00)
--- NOTE | 2017-08-23 12:05 | HHI.PR ---
Subjective Remarks in no acute distress. no new complaints. Objective Vitals Vital Signs Date Time Temp Pulse Resp B/P (MAP) Pulse Ox O2 Delivery O2 Flow Rate FiO2 08/23/17 06:00 98.7 66 16 103/53 (70) 99 08/22/17 18:03 97.6 67 16 142/62 (88) 96 I/O 08/22/17 08/22/17 08/22/17 08/23/17 08/23/17 08/23/17 07:00 15:00 23:00 07:00 15:00 23:00 Intake Total 240 ml 240 ml Balance 240 ml 240 ml Intake Oral 240 ml 240 ml # Voids 3 2 Imaging Last Impressions Chest X-Ray 08/08/17 0000 Signed Impressions: Service Date/Time: Tuesday, August 08, 2017 08:13 - CONCLUSION: No acute disease. Simone Short MD Head CT 08/07/17 1252 Signed Impressions: Service Date/Time: Monday, August 07, 2017 14:55 - CONCLUSION: No acute intracranial disease. Donnie Robledo MD Objective Remarks GENERAL: This is a well-nourished, well-developed patient, in no apparent distress. CARDIOVASCULAR: Regular rate and regular rhythm without murmurs, gallops, or rubs. RESPIRATORY: Clear to auscultation. Breath sounds equal bilaterally. No wheezes , rales, or rhonchi. GASTROINTESTINAL: Abdomen soft, non-tender, nondistended. Normal, active bowel sounds MUSCULOSKELETAL: Extremities without clubbing, cyanosis, or edema. NEURO: Alert & Oriented x4 to person, place, time, situation. Moves all ext x4 Medications and IVs Inpatient Medications Acetaminophen (Tylenol) 650 mg Q4H PRN PO Pain 1-5 or Temp >101F; Start at 20:00 Al Hydrox/Mg Hydrox/Simethicone (Mag-Al Plus Susp Liq) 30 ml Q6H PRN PO DYSPEPSIA; Start 08/07/17 at 20:00 Aripiprazole (Abilify) 15 mg DAILY PO Last administered on 08/23/17at 09:27; Start 08/19/17 at 09:00 Ceftriaxone Sodium 1000 mg/ Sodium Chloride 100 ml @ 200 mls/hr Q24H IV Last administered on 08/21/17 10:28; Start 08/19/17 at 10:00; Stop 08/21/17 at 12:04; Status DC Diphenhydramine HCl (Benadryl) 50 mg HS PRN PO INSOMNIA Last administered on 20:41; Start 08/08/17 at 21:00 Enoxaparin Sodium (Lovenox Inj) 40 mg Q24H SQ Last administered on 08/22/17 11: 27; Start 08/10/17 at 12:00 Haloperidol (Haldol) 5 mg BID PO Last administered on 08/11/17 10:17; Start at 09:00; Stop 08/11/17 at 12:56; Status DC Lactulose (Lactulose Liq) 30 ml ONCE ONCE PO Last administered on 08/07/17 17 :23; Start 08/07/17 at 16:00; Stop 08/07/17 at 16:01; Status DC [place] Carbonate (Eskalith Sr) 450 mg Q12HR PO Last administered on 08/23/17 09:26; Start 08/13/17 at 21:00 [place] Carbonate (Lithotabs) 300 mg Q12HR PO Last administered on 08/13/17 09 :23; Start 08/11/17 at 21:00; Stop 08/13/17 at 12:24; Status DC Lorazepam (Ativan) 1 mg Q6H PRN PO MODERATE TO SEVERE ANXIETY; Start 08/08/17 at 09:00 Magnesium Hydroxide (Milk Of Magnesia Liq) 30 ml DAILY PRN PO CONSTIPATION; Start 08/07/17 at 20:00 Magnesium Oxide (Mag-Ox) 400 mg ONCE ONCE PO Last administered on 08/09/17at 10 :00; Start 08/09/17 at 10:00; Stop 08/09/17 at 10:01; Status DC Miscellaneous (Pill Splitter) 1 ea UNSCH PRN OTHER SEE LABEL COMMENTS; Start at 11:30 Miscellaneous Information 1 DAILY T-DERMAL Last administered on 08/23/17 09:00 ; Start 08/08/17 at 09:00 Nicotine (Habitrol 21 Mg Patch.24 Hr) 1 patch DAILY T-DERMAL Last administered on 08/23/17at 09:00; Start 08/07/17 at 20:00 Olanzapine (ZyPREXA INJ) 10 mg ONCE ONCE IM ; Start 08/08/17 at 01:30; Stop at 01:31; Status DC Paroxetine HCl (Paxil) 30 mg DAILY PO Last administered on 08/23/17at 09:26; Start 08/23/17 at 09:00 Potassium Chloride (KCl) 30 meq ONCE ONCE PO Last administered on 08/09/17at 10 :00; Start 08/09/17 at 10:00; Stop 08/09/17 at 10:01; Status DC Sodium Chloride 500 ml @ 500 mls/hr BOLUS ONCE IV Last administered on at 08:00; Start 08/08/17 at 08:00; Stop 08/08/17 at 08:59; Status DC A/P Problem List: (1) Hypertension ICD Code: I10 - Essential (primary) hypertension (2) YUMI (acute kidney injury) ICD Code: N17.9 - Acute kidney failure, unspecified (3) Hypokalemia ICD Code: E87.6 - Hypokalemia (4) Dehydration ICD Code: E86.0 - Dehydration (5) Bipolar disorder ICD Code: F31.9 - Bipolar disorder, unspecified Status: Acute (6) Unspecified psychosis ICD Code: F29 - Unspecified psychosis not due to a substance or known physiological condition Assessment and Plan A/P Bipolar disorder. Acute psychosis per notes. Currently looking as though she has major depressive episodes with flat affect. Management per psychiatry. Greenish discharge per vagina from staff report / questionable UTI- now has improved. GC chlamydia negative- UC with gram positive doug-dc'ed antibiotics. History of hypertension per notes. However not on any antihypertensive medications. Patient also denies any history of hypertension. Blood pressure was somewhat slow initially a few days ago but this is now resolved. Acute kidney injury secondary to severe dehydration. Resolved. Chronic tobacco abuse Discharge Planning medically ok to transfer out of med-psych - Problem Qualifiers (1) Bipolar disorder: Janay Villalba MD Aug 23, 2017 12:05
--- NOTE | 2017-08-23 13:08 | HHI.PYPN ---
Subjective Remarks Patient seen for follow, chart reviewed. Discussion nursing staff reported the patient urinated in bed,, compliant medications is now medically cleared. Patient was found lying hospital bed continued to be noted to be dirty, disheveled, malodorous, with poor eye contact during interview and superficially cooperative. Patient states that she is feeling "alright", continues report feeling depressed, patient was encouraged to maintain personal hygiene by showering today which she agreed but continues to require much encouragement. Patient is eating her meals. She continues to be noted to be very dysphoric, with anhedonia. Review of Systems Except as stated in HPI: all other systems reviewed are Neg Mental Status Examination Appearance: Disheveled, Malodorous (Slightly) Consciousness: Alert Orientation: Person, Place (at least) Motor Activity: Other (Ongoing psychomotor retardation) Speech: Slow, Other (Increased speech latency) Language: Adequate Fund of Knowledge: Adequate Attention and Concentration: Other (Poor) Memory: Impaired (On clinical exam) Mood: Sad Affect: Other (Restricted and dysphoric) Thought Process & Associations: Other (Slowed) Thought Content: Other (Vague) Hallucination Type: None Delusion Type: None Suicidal Ideation: No Suicidal Plan: No Suicidal Intention: No Homicidal Ideation: No Homicidal Plan: No Homicidal Intention: No Insight: Poor Judgment: Poor Results Labs Date/Time Source Procedure Growth Status 08/07/17 07:00 Blood Peripheral Aerobic Blood Culture - Final NO GROWTH IN 5 DAYS Complete 08/07/17 07:00 Blood Peripheral Anaerobic Blood Culture - Final NO GROWTH IN 5 DAYS Complete 08/18/17 12:38 Urine Clean Catch Urine Culture - Final <10,000 CFU/ML MIXED GRAM POSITIVE FL... Complete Vitals/IOs Vital Signs Date Time Temp Pulse Resp B/P (MAP) Pulse Ox O2 Delivery O2 Flow Rate FiO2 08/23/17 06:00 98.7 66 16 103/53 (70) 99 Assessment & Plan Problem List: (1) Depressive disorder ICD Codes: F32.9 - Major depressive disorder, single episode, unspecified Assessment & Plan Patient continues to have limited psychomotor retardation, continues be very dysphoric, anhedonic, continues to endorse feeling depressed. Prostate recently increased, continue current treatment. Continue monitor mood and behavior. Patient medically cleared we will plan to have patient move down to psychiatric unit. Continue to encourage patient to participate in personal hygiene and groups and activities. Discharge planning in progress. Justification for Cont. Inpt. At risk for further decompensation if at lower level of care Donnie Packer MD Aug 23, 2017 13:08
[2017-08-23 18:17] VITALS: BP 109/65; PULSE 70; RESP 16; TEMP 98.6; O2SAT 99
[2017-08-24 06:11] VITALS: BP 92/60; PULSE 67; RESP 16; TEMP 98.2; O2SAT 98
[2017-08-24] MEDS: NICOTINE 21 MG/24 HR PATCH T-DERMAL SCH (09:00)
[2017-08-24] MEDS: REMOVE OLD PATCH T-DERMAL SCH (09:00)
[2017-08-24] MEDS: LITHIUM CARBONATE 450 MG CONTROLLED RELEASE TAB PO SCH ×2 (09:00→21:07)
[2017-08-24] MEDS: ARIPiprazole 15 MG TAB PO SCH (09:09)
[2017-08-24] MEDS: PARoxetine HCL 20 MG TAB PO SCH (09:10)
[2017-08-24] MEDS: ENOXAPARIN SODIUM 40 MG/0.4 ML SYRINGE SQ SCH (12:00)
--- NOTE | 2017-08-24 13:30 | HHI.PR ---
Subjective Remarks Follow-up visit for questionable UTI, history of HTN and vaginal discharge. Patient seen and examined in bed resting comfortably and appears to be in no acute distress. Denies any fevers, chills, nausea, vomiting, diarrhea, dysuria , or vaginal discharge. When asked what color discharge is patient then reports it is a yellowish color. Denies any suprapubic pain or lower abdominal pain. Spoke with nurse who reports patient continues to have green tinged discharge with foul odor. Objective Vitals Vital Signs Date Time Temp Pulse Resp B/P (MAP) Pulse Ox O2 Delivery O2 Flow Rate FiO2 08/24/17 06:11 98.2 67 16 92/60 (71) 98 08/23/17 18:17 98.6 70 16 109/65 (80) 99 I/O 08/23/17 08/23/17 08/23/17 08/24/17 08/24/17 08/24/17 07:00 15:00 23:00 07:00 15:00 23:00 Intake Total 2280 ml 0 ml 240 ml Balance 2280 ml 0 ml 240 ml Intake Oral 2280 ml 0 ml 240 ml # Voids 2 2 2 # Bowel Movements 1 Imaging Last Impressions Chest X-Ray 08/08/17 0000 Signed Impressions: Service Date/Time: Tuesday, August 08, 2017 08:13 - CONCLUSION: No acute disease. Simone Short MD Head CT 08/07/17 1252 Signed Impressions: Service Date/Time: Monday, August 07, 2017 14:55 - CONCLUSION: No acute intracranial disease. Donnie Robledo MD Objective Remarks GENERAL: Well-nourished, well-developed male in no acute distress. HEENT: Normocephalic, atraumatic. No scleral icterus. No injection or drainage. Mucous membranes are moist. CARDIOVASCULAR: Regular rate and rhythm without murmurs, gallops, or rubs. RESPIRATORY: Clear to auscultation. No wheezes, rales, or rhonchi. Breathing is non-labored. GASTROINTESTINAL: Abdomen soft, non-tender, nondistended. Normoactive bowel sounds in all quadrants. EXTREMITIES: No lower extremity edema. No calf tenderness. NEUROLOGICAL: Alert, oriented. Flat affect, moving all extremities spontaneously. A/P Problem List: (1) Hypertension ICD Code: I10 - Essential (primary) hypertension (2) YUMI (acute kidney injury) ICD Code: N17.9 - Acute kidney failure, unspecified (3) Hypokalemia ICD Code: E87.6 - Hypokalemia (4) Dehydration ICD Code: E86.0 - Dehydration (5) Bipolar disorder ICD Code: F31.9 - Bipolar disorder, unspecified Status: Acute (6) Unspecified psychosis ICD Code: F29 - Unspecified psychosis not due to a substance or known physiological condition Assessment and Plan Bipolar disorder-treatment per psychiatry. Vaginal discharge Possibly bacterial vaginosis. -Patient has been tested for GC C and this was negative. Patient continues to deny vaginal discharge however when asked above specifications is able to provide a color description. Nurse also reports that this is still ongoing. -Discussed with patient treating for bacterial vaginosis, discussed oral metronidazole, verbalized understanding. Hypertension -Blood pressure stable with no antihypertensives. Acute kidney injury -BMP from 08/10 reviewed, renal function within normal limits. DVT prophylaxis-subcu Lovenox (patient refusing) Discussed with nurse. Problem Qualifiers (1) Bipolar disorder: Wanda MclainP Aug 24, 2017 13:30
--- NOTE | 2017-08-24 14:14 | HHI.PYPN ---
Subjective Remarks The patient was seen today for psychiatric reevaluation. Patient was found in her bed, she was engageable in a conversation, reports feeling better, with better energy, better sleep, she says that she has been walking, however, she continues to be psychomotorly retarded, with delay speech, blocking thought. She denies suicidal and homicidal ideation, she denies visual and auditory hallucinations. As per staff, the patient continues to be secluded, interacting poorly with staff and peers, need a lot of encouragement to get out of bed even going to the bathroom Mental Status Examination Appearance: Disheveled, Malodorous (Slightly) Consciousness: Alert Orientation: Person, Place (at least) Motor Activity: Other (Ongoing psychomotor retardation) Speech: Slow, Other (Increased speech latency) Language: Adequate Fund of Knowledge: Adequate Attention and Concentration: Other (Poor) Memory: Impaired (On clinical exam) Mood: Sad Affect: Other (Restricted and dysphoric) Thought Process & Associations: Other (Slowed) Thought Content: Other (Vague) Hallucination Type: None Delusion Type: None Suicidal Ideation: No Suicidal Plan: No Suicidal Intention: No Homicidal Ideation: No Homicidal Plan: No Homicidal Intention: No Insight: Poor Judgment: Poor Results Labs Date/Time Source Procedure Growth Status 08/07/17 07:00 Blood Peripheral Aerobic Blood Culture - Final NO GROWTH IN 5 DAYS Complete 08/07/17 07:00 Blood Peripheral Anaerobic Blood Culture - Final NO GROWTH IN 5 DAYS Complete 08/18/17 12:38 Urine Clean Catch Urine Culture - Final <10,000 CFU/ML MIXED GRAM POSITIVE FL... Complete Vitals/IOs Vital Signs Date Time Temp Pulse Resp B/P (MAP) Pulse Ox O2 Delivery O2 Flow Rate FiO2 08/24/17 06:11 98.2 67 16 92/60 (71) 98 Intake and Output 08/24/17 08/24/17 08/24/17 07:59 15:59 23:59 Intake Total 240 ml Balance 240 ml Assessment & Plan Problem List: (1) Depressive disorder ICD Codes: F32.9 - Major depressive disorder, single episode, unspecified Assessment & Plan: Brief supportive psychotherapy provided. Patient encouraged to get out of bed, participate in group activities, continue compliance medications Assessment & Plan Estimated LOS: days Justification for Cont. Inpt. Patient continues to show symptomatology of severe depression. Lele Stanley MD Aug 24, 2017 14:14
[2017-08-24 18:00] VITALS: BP 130/67; PULSE 83; RESP 20; TEMP 97.5; O2SAT 98
[2017-08-24] MEDS: metroNIDAZOLE 500 MG TAB PO SCH (21:07)
[2017-08-25 05:28] VITALS: BP 105/55; PULSE 65; RESP 16; TEMP 98.5; O2SAT 96
[2017-08-25] MEDS: ARIPiprazole 15 MG TAB PO SCH (08:54)
[2017-08-25] MEDS: PARoxetine HCL 20 MG TAB PO SCH (08:55)
[2017-08-25] MEDS: LITHIUM CARBONATE 450 MG CONTROLLED RELEASE TAB PO SCH ×2 (08:55→20:32)
[2017-08-25] MEDS: metroNIDAZOLE 500 MG TAB PO SCH ×2 (08:55→20:31)
[2017-08-25] MEDS: REMOVE OLD PATCH T-DERMAL SCH (08:56)
[2017-08-25] MEDS: NICOTINE 21 MG/24 HR PATCH T-DERMAL SCH (08:57)
--- NOTE | 2017-08-25 10:10 | HHI.PR ---
Subjective Remarks Follow up on patient with vaginal discharge, HTN. Patient seen and examined. Patient states she just started on Flagyl so not sure if it is working as of yet. Still with vaginal discharge. She denies any other medical complaints. She denies any fever or chills. Denies any chest pain or dyspnea. Denies any nausea, vomiting or abdominal pain. She denies any hematuria or dysuria. Objective Vitals Vital Signs Date Time Temp Pulse Resp B/P (MAP) Pulse Ox O2 Delivery O2 Flow Rate FiO2 08/25/17 05:28 98.5 65 16 105/55 (72) 96 08/24/17 18:00 97.5 83 20 130/67 (88) 98 I/O 08/24/17 08/24/17 08/24/17 08/25/17 08/25/17 08/25/17 07:00 15:00 23:00 07:00 15:00 23:00 Intake Total 0 ml 360 ml 480 ml Balance 0 ml 360 ml 480 ml Intake Oral 0 ml 360 ml 480 ml # Voids 2 3 2 # Bowel Movements 1 Imaging Last Impressions Chest X-Ray 08/08/17 0000 Signed Impressions: Service Date/Time: Tuesday, August 08, 2017 08:13 - CONCLUSION: No acute disease. Simone Short MD Head CT 08/07/17 1252 Signed Impressions: Service Date/Time: Monday, August 07, 2017 14:55 - CONCLUSION: No acute intracranial disease. Donnie Robledo MD Objective Remarks GENERAL: Well-nourished, well-developed female patient in [facility]. Asleep in bed but easily awakens to voice. Appears comfortable. SKIN: Warm and dry. No rash. HEAD: Normocephalic. Atraumatic. EYES: EOMI. No scleral icterus. No injection or drainage. ENT: No nasal bleeding or discharge. Mucous membranes pink and moist. NECK: Supple. Trachea midline. CARDIOVASCULAR: Regular rate and rhythm. S1, S2 noted. No murmur appreciated. RESPIRATORY: Nonlabored. Clear to auscultation. Breath sounds equal bilaterally. GASTROINTESTINAL: Abdomen soft, non-tender, nondistended. Normoactive bowel sounds x4. MUSCULOSKELETAL: No obvious deformities. Extremities without clubbing, cyanosis , or edema. NEUROLOGICAL: Awake and alert. No obvious cranial nerve deficits. Motor grossly within normal limits. Able to move all extremities spontaneously. Nonfocal Normal speech. PSYCHIATRIC: Flat affect. Calm and pleasant. Medications and IVs Current Medications Medications (Trade) Dose Ordered Sig/Betty Route Start Time Stop Time Status Last Admin (Tylenol) 650 mg Q4H PRN PO 08/07/17 20:00 (Milk Of Magnesia Liq) 30 ml DAILY PRN PO 08/07/17 20:00 (Mag-Al Plus Susp Liq) 30 ml Q6H PRN PO 08/07/17 20:00 (Habitrol 21 Mg Patch.24 Hr) 1 patch DAILY T-DERMAL 08/07/17 20:00 08/24/17 09:00 Miscellaneous Information 1 DAILY T-DERMAL 08/08/17 09:00 08/24/17 09:00 (Benadryl) 50 mg HS PRN PO 08/08/17 21:00 08/12/17 20:41 (Ativan) 1 mg Q6H PRN PO 08/08/17 09:00 (Lovenox Inj) 40 mg Q24H SQ 08/10/17 12:00 08/22/17 11:27 (Eskalith Sr) 450 mg Q12HR PO 08/13/17 21:00 08/25/17 08:55 (Pill Splitter) 1 ea UNSCH PRN OTHER 08/17/17 11:30 (Abilify) 15 mg DAILY PO 08/19/17 09:00 08/25/17 08:54 (Paxil) 30 mg DAILY PO 08/23/17 09:00 08/25/17 08:55 (Flagyl) 500 mg BID PO 08/24/17 21:00 08/31/17 20:59 08/25/17 08:55 A/P Problem List: (1) Hypertension ICD Code: I10 - Essential (primary) hypertension (2) YUMI (acute kidney injury) ICD Code: N17.9 - Acute kidney failure, unspecified (3) Hypokalemia ICD Code: E87.6 - Hypokalemia (4) Dehydration ICD Code: E86.0 - Dehydration (5) Bipolar disorder ICD Code: F31.9 - Bipolar disorder, unspecified Status: Acute (6) Unspecified psychosis ICD Code: F29 - Unspecified psychosis not due to a substance or known physiological condition Assessment and Plan 52 yo female with bipolar disorder and HTN: Bipolar disorder Acute psychosis Self care neglect Medication noncompliance -Management per psychiatry Vaginal discharge Suspect bacterial vaginosis -negative for gonorrhea/chlamydia -continue on Flagyl po, stop date in system -monitor for improvement HTN, BP soft -overall controlled off of antihypertensives -continue to monitor -encourage good oral intake YUMI, secondary to dehydration, resolved -avoid nephrotoxic agents -continue to encourage oral intake -continue to monitor renal indices as indicated Hypokalemia -resolved s/p repletion -monitor K as indicated DVT prophylaxis -patient is ambulatory -on sq Lovenox but patient refusing Patient appears stable from hospitalist standpoint. [facility] will sign off for now. Please reconsult if needed. Problem Qualifiers (1) Bipolar disorder: Abigail Pimentel Aug 25, 2017 10:10
[2017-08-25] MEDS: ENOXAPARIN SODIUM 40 MG/0.4 ML SYRINGE SQ SCH (12:00)
--- NOTE | 2017-08-25 12:08 | HHI.PYPN ---
Subjective Remarks The patient was seen today for psychiatric reevaluation, the case was widely discussed with social media specialist Yolie. On my evaluation today the patient continues to be mostly in bed, with a severe lack of motivation and anhedonia, guarded, minimally engageable in a conversation. She answers questions selectively in a very monotonous manner. He continues to be distant, disengaged , verbally participating in any activity in the unit or leaving her bed. The patient states that she wants to get better, she is oriented 3, she is compliant with her medications, she denies suicidal and homicidal ideation, she denies visual and auditory hallucinations. Review of Systems Psychiatric: COMPLAINS OF: Depression Except as stated in HPI: all other systems reviewed are Neg Mental Status Examination Appearance: Disheveled, Malodorous (Slightly) Consciousness: Alert Orientation: Person, Place (at least) Motor Activity: Other (Ongoing psychomotor retardation) Speech: Slow, Other (Increased speech latency) Language: Adequate Fund of Knowledge: Adequate Attention and Concentration: Other (Poor) Memory: Impaired (On clinical exam) Mood: Sad Affect: Other (Restricted and dysphoric) Thought Process & Associations: Other (Slowed) Thought Content: Other (Vague) Hallucination Type: None Delusion Type: None Suicidal Ideation: No Suicidal Plan: No Suicidal Intention: No Homicidal Ideation: No Homicidal Plan: No Homicidal Intention: No Insight: Poor Judgment: Poor Results Labs Date/Time Source Procedure Growth Status 08/07/17 07:00 Blood Peripheral Aerobic Blood Culture - Final NO GROWTH IN 5 DAYS Complete 08/07/17 07:00 Blood Peripheral Anaerobic Blood Culture - Final NO GROWTH IN 5 DAYS Complete 08/18/17 12:38 Urine Clean Catch Urine Culture - Final <10,000 CFU/ML MIXED GRAM POSITIVE FL... Complete Vitals/IOs Vital Signs Date Time Temp Pulse Resp B/P (MAP) Pulse Ox O2 Delivery O2 Flow Rate FiO2 08/25/17 05:28 98.5 65 16 105/55 (72) 96 Intake and Output 08/25/17 08/25/17 08/26/17 08:00 16:00 00:00 Intake Total 480 ml Balance 480 ml Assessment & Plan Problem List: (1) Depressive disorder ICD Codes: F32.9 - Major depressive disorder, single episode, unspecified Assessment & Plan: Today we will increase the paroxetine to 40 mg to help with her depression. I will restart the process of transferring the patient to involuntary ECT due to her lack of response to psychotropic regimen. Brief supportive psychotherapy, psychoeducation and motivation provided. Assessment & Plan Estimated LOS: days Justification for Cont. Inpt. Patient continues to be severely depressed. Lele Stanley MD Aug 25, 2017 12:08
[2017-08-25 18:01] VITALS: BP 105/55; PULSE 63; RESP 18; O2SAT 97
[2017-08-26 04:57] VITALS: BP 107/52; PULSE 72; RESP 16; TEMP 99.1; O2SAT 98
[2017-08-26] MEDS: metroNIDAZOLE 500 MG TAB PO SCH ×2 (09:00→21:00)
[2017-08-26] MEDS: LITHIUM CARBONATE 450 MG CONTROLLED RELEASE TAB PO SCH ×2 (09:00→21:01)
[2017-08-26] MEDS: REMOVE OLD PATCH T-DERMAL SCH (09:00)
[2017-08-26] MEDS: NICOTINE 21 MG/24 HR PATCH T-DERMAL SCH (09:00)
[2017-08-26] MEDS: PARoxetine HCL 20 MG TAB PO SCH (09:00)
[2017-08-26] MEDS: ARIPiprazole 15 MG TAB PO SCH (09:00)
--- NOTE | 2017-08-26 10:43 | PD.TTN ---
Patient Problems 1. Discharge planning 2. Medication compliance 3. Knowledge deficit 4. Lack of coping skills Progress Toward Goals Provider Present: Dr. Nilay Stanley Provider Input: 08/26/2017; patient ECT request foward, medication adjustment 08/24/2017; patient medication is being adjusted, still very depressed, moving forward with ECT Nurse(s) Present: RN Nurse(s) Input: 08/26/2017; patient requires coaching and prompting with daily care and medication needs 01/2018; patient requires coaching and prompting with daily care and medication Psychiatric Counselors Present: ANDREW Mcknight Psych Therapist Input: 08/26/2017; counselor will fax package to [facility] after [place] court approval 08/24/2017; counselor will contact [facility] to injuire about ECT Group Spec/RT/OT/TELLO Present: Joseph Mcgovern OT Group Spec/RT/OT/TELLO Input: 08/26/2017; patient refuses to attend groups or activities 08/24/2017; patient refuses to attend groups Documentation Scribe: Yolie Fischer Aug 26, 2017 10:43
[2017-08-26] MEDS: ENOXAPARIN SODIUM 40 MG/0.4 ML SYRINGE SQ SCH (12:00)
--- NOTE | 2017-08-26 12:23 | HHI.PYPN ---
Subjective Remarks The patient was seen today for psychiatric reevaluation. The patient is calm, cooperative, more engageable in a conversation than days before. She reports feeling better, she says that she is motivated to get better, reports better mood, she says that she wants to go to the therapy and participate in the activity. I discussed with the patient the possibility of ECT, she asked for some time to think about it and to try to improve with medications. As per conversation with therapies and nursing chart the patient seems to have a brighter affect, is more communicative, and yesterday she took a child and got out of bed a little bit. He has been compliant with her medications, no significant side effects. She is fully oriented 3. Review of Systems Psychiatric: COMPLAINS OF: Depression Except as stated in HPI: all other systems reviewed are Neg Mental Status Examination Appearance: Disheveled, Malodorous (Slightly) Consciousness: Alert Orientation: Person, Place (at least) Motor Activity: Other (Ongoing psychomotor retardation) Speech: Slow, Other (Increased speech latency) Language: Adequate Fund of Knowledge: Adequate Attention and Concentration: Other (Poor) Memory: Impaired (On clinical exam) Mood: Sad Affect: Other (Restricted and dysphoric) Thought Process & Associations: Other (Slowed) Thought Content: Other (Vague) Hallucination Type: None Delusion Type: None Suicidal Ideation: No Suicidal Plan: No Suicidal Intention: No Homicidal Ideation: No Homicidal Plan: No Homicidal Intention: No Insight: Poor Judgment: Poor Results Labs Date/Time Source Procedure Growth Status 08/07/17 07:00 Blood Peripheral Aerobic Blood Culture - Final NO GROWTH IN 5 DAYS Complete 08/07/17 07:00 Blood Peripheral Anaerobic Blood Culture - Final NO GROWTH IN 5 DAYS Complete 08/18/17 12:38 Urine Clean Catch Urine Culture - Final <10,000 CFU/ML MIXED GRAM POSITIVE FL... Complete Vitals/IOs Vital Signs Date Time Temp Pulse Resp B/P (MAP) Pulse Ox O2 Delivery O2 Flow Rate FiO2 08/26/17 04:57 99.1 72 16 107/52 (70) 98 Intake and Output 08/26/17 08/26/17 08/27/17 08:00 16:00 00:00 Intake Total 120 ml Balance 120 ml Assessment & Plan Problem List: (1) Depressive disorder ICD Codes: F32.9 - Major depressive disorder, single episode, unspecified Assessment & Plan: Medication were adjusted yesterday. Today will continue close follow-up. She is still severely depressed, with marked psychomotor retardation, speech delays, blocking thought. Brief supportive psychotherapy provided. Assessment & Plan Estimated LOS: days Justification for Cont. Inpt. Patient shows symptoms of severe depression and she needs to continue psychiatric hospitalization for stabilization Lele Stanley MD Aug 26, 2017 12:23
[2017-08-26 18:25] VITALS: BP 119/60; PULSE 82; RESP 18; TEMP 98.2; O2SAT 97
[2017-08-27 05:58] VITALS: BP 105/59; PULSE 68; RESP 16; TEMP 98.1; O2SAT 96
[2017-08-27] MEDS: REMOVE OLD PATCH T-DERMAL SCH (09:00)
[2017-08-27] MEDS: NICOTINE 21 MG/24 HR PATCH T-DERMAL SCH (09:00)
[2017-08-27 09:11] VITALS: BP 102/56; PULSE 70
[2017-08-27] MEDS: LITHIUM CARBONATE 450 MG CONTROLLED RELEASE TAB PO SCH ×2 (09:13→20:54)
[2017-08-27] MEDS: PARoxetine HCL 20 MG TAB PO SCH (09:13)
[2017-08-27] MEDS: metroNIDAZOLE 500 MG TAB PO SCH ×2 (09:13→20:54)
[2017-08-27] MEDS: ARIPiprazole 15 MG TAB PO SCH (09:13)
--- NOTE | 2017-08-27 10:56 | HHI.PYPN ---
Subjective Remarks The patient was seen today for psychiatric reevaluation. Patient was found awake, alert, fully engageable in a conversation with a brighter affect. She says that she feels much better, that she is motivated to go to activities and go out to eat today. She reports improved mood, good sleep, good level of energy, denies suicidal or homicidal ideation, she denies visual and auditory hallucinations. She continues to show prominent blocking thought, speech delay , but definitely seems to be doing much better. Has been compliant with medications, no significant side effects. Patient is fully oriented 3. I have discussed with the patient and with nurse in charge Ashley the convenience of participation in outdoor activities. I also discussed with Ashley the possibility of transferring the patient to [facility] unit. Review of Systems Psychiatric: COMPLAINS OF: Depression Except as stated in HPI: all other systems reviewed are Neg Mental Status Examination Appearance: Disheveled, Malodorous (Slightly) Consciousness: Alert Orientation: Person, Place (at least) Motor Activity: Other (Ongoing psychomotor retardation) Speech: Slow, Other (Increased speech latency) Language: Adequate Fund of Knowledge: Adequate Attention and Concentration: Other (Poor) Memory: Impaired (On clinical exam) Mood: Sad Affect: Other (Restricted and dysphoric) Thought Process & Associations: Other (Slowed) Thought Content: Other (Vague) Hallucination Type: None Delusion Type: None Suicidal Ideation: No Suicidal Plan: No Suicidal Intention: No Homicidal Ideation: No Homicidal Plan: No Homicidal Intention: No Insight: Poor Judgment: Poor Results Labs Date/Time Source Procedure Growth Status 08/07/17 07:00 Blood Peripheral Aerobic Blood Culture - Final NO GROWTH IN 5 DAYS Complete 08/07/17 07:00 Blood Peripheral Anaerobic Blood Culture - Final NO GROWTH IN 5 DAYS Complete 08/18/17 12:38 Urine Clean Catch Urine Culture - Final <10,000 CFU/ML MIXED GRAM POSITIVE FL... Complete Vitals/IOs Vital Signs Date Time Temp Pulse Resp B/P (MAP) Pulse Ox O2 Delivery O2 Flow Rate FiO2 08/27/17 09:11 70 102/56 (71) 08/27/17 05:58 98.1 16 96 Assessment & Plan Problem List: (1) Bipolar disorder ICD Codes: F31.9 - Bipolar disorder, unspecified Status: Chronic Assessment & Plan: Patient seems to be responding to psychotropic regimen. Continues to have speech delay, thought blocking, psychomotor retardation, I will increase today the Abilify to 20 mg. Will order lithium levels. Brief supportive psychotherapy provided. Insight oriented psychotherapy provided too. Assessment & Plan Estimated LOS: days Justification for Cont. Inpt. Patient needs to continue psychiatric hospitalization for stabilization. Problem Qualifiers (1) Bipolar disorder: Lele Stanley MD Aug 27, 2017 10:56
[2017-08-27] MEDS: ENOXAPARIN SODIUM 40 MG/0.4 ML SYRINGE SQ SCH (11:44)
[2017-08-27 17:55] VITALS: BP 82/42; PULSE 59; RESP 16; TEMP 97.8; O2SAT 97
[2017-08-27 17:56] VITALS: BP 92/68; PULSE 60
[2017-08-28 05:30] VITALS: BP 91/45; PULSE 62; RESP 16; TEMP 97.4; O2SAT 95
[2017-08-28] MEDS: REMOVE OLD PATCH T-DERMAL SCH (09:00)
[2017-08-28] MEDS: NICOTINE 21 MG/24 HR PATCH T-DERMAL SCH (09:00)
[2017-08-28 09:10] VITALS: BP 110/62; PULSE 63
[2017-08-28] MEDS: ARIPiprazole 10 MG TAB PO SCH (09:21)
[2017-08-28] MEDS: LITHIUM CARBONATE 450 MG CONTROLLED RELEASE TAB PO SCH ×2 (09:22→21:12)
[2017-08-28] MEDS: PARoxetine HCL 20 MG TAB PO SCH (09:22)
[2017-08-28] MEDS: metroNIDAZOLE 500 MG TAB PO SCH ×2 (09:22→21:12)
[2017-08-28] MEDS: ENOXAPARIN SODIUM 40 MG/0.4 ML SYRINGE SQ SCH (11:24)
--- NOTE | 2017-08-28 14:52 | HHI.PYPN ---
Subjective Remarks Patient was seen today for psychiatric reevaluation, the case was discussed with nurse in charge Rosa. The patient has a brighter affect today, able to smile more often, able to engage more in the conversation. She reported that she went to the social ice cream and she really enjoyed the ice cream. She reports feeling better, with a better mood, better level of energy, she denies suicidal and homicidal ideation, she denies visual and auditory hallucinations. However, the patient has been reported is still isolated, spending most of the time in bed, she has been complaining her medications., No significant side effects Review of Systems Except as stated in HPI: all other systems reviewed are Neg Mental Status Examination Appearance: Disheveled, Malodorous (Slightly) Consciousness: Alert Orientation: Person, Place (at least) Motor Activity: Other (Ongoing psychomotor retardation) Speech: Slow, Other (Increased speech latency) Language: Adequate Fund of Knowledge: Adequate Attention and Concentration: Other (Poor) Memory: Impaired (On clinical exam) Mood: Sad Affect: Other (Restricted and dysphoric) Thought Process & Associations: Other (Slowed) Thought Content: Other (Vague) Hallucination Type: None Delusion Type: None Suicidal Ideation: No Suicidal Plan: No Suicidal Intention: No Homicidal Ideation: No Homicidal Plan: No Homicidal Intention: No Insight: Poor Judgment: Poor Results Labs Date/Time Source Procedure Growth Status 08/07/17 07:00 Blood Peripheral Aerobic Blood Culture - Final NO GROWTH IN 5 DAYS Complete 08/07/17 07:00 Blood Peripheral Anaerobic Blood Culture - Final NO GROWTH IN 5 DAYS Complete 08/18/17 12:38 Urine Clean Catch Urine Culture - Final <10,000 CFU/ML MIXED GRAM POSITIVE FL... Complete Vitals/IOs Vital Signs Date Time Temp Pulse Resp B/P (MAP) Pulse Ox O2 Delivery O2 Flow Rate FiO2 08/28/17 09:10 63 110/62 (78) 08/28/17 05:30 97.4 16 95 Intake and Output 08/28/17 08/28/17 08/29/17 08:00 16:00 00:00 Intake Total 0 ml 360 ml Balance 0 ml 360 ml Assessment & Plan Problem List: (1) Bipolar disorder ICD Codes: F31.9 - Bipolar disorder, unspecified Status: Chronic Assessment & Plan: Continue current psychotropic regimen. Continue encouraging the patient to participate in activities and take medications Assessment & Plan Estimated LOS: days Justification for Cont. Inpt. Patient is severely depressed, she needs to continue psychiatric hospitalization for stabilization. Problem Qualifiers (1) Bipolar disorder: Lele Stanley MD Aug 28, 2017 14:52
[2017-08-28 17:22] VITALS: BP 80/48; PULSE 57; RESP 17; TEMP 97.6; O2SAT 98
[2017-08-29 06:28] VITALS: BP 99/63; PULSE 58; RESP 16; TEMP 97.4; O2SAT 96
[2017-08-29] MEDS: ARIPiprazole 10 MG TAB PO SCH (09:00)
[2017-08-29] MEDS: NICOTINE 21 MG/24 HR PATCH T-DERMAL SCH (09:00)
[2017-08-29] MEDS: PARoxetine HCL 20 MG TAB PO SCH (09:00)
[2017-08-29] MEDS: LITHIUM CARBONATE 450 MG CONTROLLED RELEASE TAB PO SCH ×2 (09:00→20:52)
[2017-08-29] MEDS: metroNIDAZOLE 500 MG TAB PO SCH ×2 (09:00→20:52)
[2017-08-29] MEDS: REMOVE OLD PATCH T-DERMAL SCH (09:00)
[2017-08-29] MEDS: ENOXAPARIN SODIUM 40 MG/0.4 ML SYRINGE SQ SCH (11:47)
--- NOTE | 2017-08-29 15:06 | HHI.PYPN ---
Subjective Remarks Patient was seen and case discussed with nursing. Patient is alert and oriented 3. She is compliant with her medications and behaving well on the unit. Having a productive visit with her boyfriend. She does remained seclusive and disheveled with poor insight but she is more interactive compared to her last visit. Mental Status Examination Appearance: Disheveled, Malodorous (Slightly) Consciousness: Alert Orientation: Person, Place (at least) Motor Activity: Other (Ongoing psychomotor retardation) Speech: Slow, Other (Increased speech latency) Language: Adequate Fund of Knowledge: Adequate Attention and Concentration: Other (Poor) Memory: Impaired (On clinical exam) Mood: Sad Affect: Other (Restricted and dysphoric) Thought Process & Associations: Other (Slowed) Thought Content: Other (Vague) Hallucination Type: None Delusion Type: None Suicidal Ideation: No Suicidal Plan: No Suicidal Intention: No Homicidal Ideation: No Homicidal Plan: No Homicidal Intention: No Insight: Poor Judgment: Poor Results Labs Date/Time Source Procedure Growth Status 08/07/17 07:00 Blood Peripheral Aerobic Blood Culture - Final NO GROWTH IN 5 DAYS Complete 08/07/17 07:00 Blood Peripheral Anaerobic Blood Culture - Final NO GROWTH IN 5 DAYS Complete 08/18/17 12:38 Urine Clean Catch Urine Culture - Final <10,000 CFU/ML MIXED GRAM POSITIVE FL... Complete Vitals/IOs Vital Signs Date Time Temp Pulse Resp B/P (MAP) Pulse Ox O2 Delivery O2 Flow Rate FiO2 08/29/17 06:28 97.4 58 16 99/63 (75) 96 Intake and Output 08/29/17 08/29/17 08/30/17 08:00 16:00 00:00 Intake Total 0 ml 240 ml Balance 0 ml 240 ml Assessment & Plan Problem List: (1) Bipolar disorder ICD Codes: F31.9 - Bipolar disorder, unspecified Status: Chronic Assessment & Plan Continue current treatment plan Justification for Cont. Inpt. Patient would decompensate in a less restrictive setting Problem Qualifiers (1) Bipolar disorder: Brock Cruz DO Aug 29, 2017 15:06
[2017-08-29 17:44] VITALS: BP 93/58; PULSE 70; RESP 17; TEMP 98.9; O2SAT 97
[2017-08-30 05:48] VITALS: BP 99/56; PULSE 56; RESP 16; TEMP 98.2; O2SAT 98
[2017-08-30] MEDS: LITHIUM CARBONATE 450 MG CONTROLLED RELEASE TAB PO SCH ×2 (08:35→20:41)
[2017-08-30] MEDS: metroNIDAZOLE 500 MG TAB PO SCH ×2 (08:37→20:41)
[2017-08-30] MEDS: PARoxetine HCL 20 MG TAB PO SCH (08:37)
[2017-08-30] MEDS: ARIPiprazole 10 MG TAB PO SCH (08:37)
[2017-08-30] MEDS: REMOVE OLD PATCH T-DERMAL SCH (08:39)
[2017-08-30] MEDS: NICOTINE 21 MG/24 HR PATCH T-DERMAL SCH (08:40)
[2017-08-30] MEDS: ENOXAPARIN SODIUM 40 MG/0.4 ML SYRINGE SQ SCH (11:58)
--- NOTE | 2017-08-30 14:46 | HHI.PYPN ---
Subjective Remarks Patient was seen and case discussed with nursing. Insight continues to improve. Patient is behaving well on the unit and realizes she was acting bizarre secondary to poor compliance. She has been meeting with her boyfriend this weekend and they are getting along well. She is tolerating her medications well. No psychotic symptoms noted today. Though, she does remained disheveled Mental Status Examination Appearance: Disheveled, Malodorous (Slightly) Consciousness: Alert Orientation: Person, Place (at least) Motor Activity: Other (Ongoing psychomotor retardation) Speech: Slow, Other (Increased speech latency) Language: Adequate Fund of Knowledge: Adequate Attention and Concentration: Other (Poor) Memory: Impaired (On clinical exam) Mood: Sad Affect: Other (Restricted and dysphoric) Thought Process & Associations: Other (Slowed) Thought Content: Other (Vague) Hallucination Type: None Delusion Type: None Suicidal Ideation: No Suicidal Plan: No Suicidal Intention: No Homicidal Ideation: No Homicidal Plan: No Homicidal Intention: No Insight: Poor Judgment: Poor Results Labs Date/Time Source Procedure Growth Status 08/07/17 07:00 Blood Peripheral Aerobic Blood Culture - Final NO GROWTH IN 5 DAYS Complete 08/07/17 07:00 Blood Peripheral Anaerobic Blood Culture - Final NO GROWTH IN 5 DAYS Complete 08/18/17 12:38 Urine Clean Catch Urine Culture - Final <10,000 CFU/ML MIXED GRAM POSITIVE FL... Complete Vitals/IOs Vital Signs Date Time Temp Pulse Resp B/P (MAP) Pulse Ox O2 Delivery O2 Flow Rate FiO2 08/30/17 05:48 98.2 56 16 99/56 (70) 98 Intake and Output 08/30/17 08/30/17 08/31/17 08:00 16:00 00:00 Intake Total 0 ml Balance 0 ml Assessment & Plan Problem List: (1) Bipolar disorder ICD Codes: F31.9 - Bipolar disorder, unspecified Status: Chronic Assessment & Plan Continue current treatment plan Justification for Cont. Inpt. Patient would decompensate in a less restrictive setting Problem Qualifiers (1) Bipolar disorder: Brock Cruz DO Aug 30, 2017 14:46
[2017-08-30 17:25] VITALS: BP 114/51; PULSE 60; RESP 16; TEMP 98.8; O2SAT 98
[2017-08-30] MEDS: ACETAMINOPHEN 325 MG TAB PO PRN (18:17)
[2017-08-31 06:17] VITALS: BP 90/66; PULSE 56; RESP 18; TEMP 98.1; O2SAT 95
[2017-08-31] MEDS: REMOVE OLD PATCH T-DERMAL SCH (09:00)
[2017-08-31] MEDS: NICOTINE 21 MG/24 HR PATCH T-DERMAL SCH (09:00)
[2017-08-31] MEDS: ARIPiprazole 10 MG TAB PO SCH (09:03)
[2017-08-31] MEDS: LITHIUM CARBONATE 450 MG CONTROLLED RELEASE TAB PO SCH ×2 (09:03→21:09)
[2017-08-31] MEDS: metroNIDAZOLE 500 MG TAB PO SCH (09:03)
[2017-08-31] MEDS: PARoxetine HCL 20 MG TAB PO SCH (09:03)
[2017-08-31] MEDS: ENOXAPARIN SODIUM 40 MG/0.4 ML SYRINGE SQ SCH (11:31)
--- NOTE | 2017-08-31 12:29 | HHI.PYPN ---
Subjective Remarks The patient was seen today for psychiatric reevaluation. Documentation from Dr. Parker was reviewed. The patient was found today for the first time out of the room, eating her breakfast, with full affect. Patient reports feeling much better, she says that she realizes that she needs to get out of bed, eating well , interact with people to get better. She reports that she had a good weekend. She has been compliant with her medications, no significant side effects. She denies suicidal and homicidal ideation, she denies visual and auditory hallucinations Mental Status Examination Appearance: Disheveled, Malodorous (Slightly) Consciousness: Alert Orientation: Person, Place (at least) Motor Activity: Other (Ongoing psychomotor retardation) Speech: Slow, Other (Increased speech latency) Language: Adequate Fund of Knowledge: Adequate Attention and Concentration: Other (Poor) Memory: Impaired (On clinical exam) Mood: Sad Affect: Other (Restricted and dysphoric) Thought Process & Associations: Other (Slowed) Thought Content: Other (Vague) Hallucination Type: None Delusion Type: None Suicidal Ideation: No Suicidal Plan: No Suicidal Intention: No Homicidal Ideation: No Homicidal Plan: No Homicidal Intention: No Insight: Fair Judgment: Impulsive Results Labs Date/Time Source Procedure Growth Status 08/07/17 07:00 Blood Peripheral Aerobic Blood Culture - Final NO GROWTH IN 5 DAYS Complete 08/07/17 07:00 Blood Peripheral Anaerobic Blood Culture - Final NO GROWTH IN 5 DAYS Complete 08/18/17 12:38 Urine Clean Catch Urine Culture - Final <10,000 CFU/ML MIXED GRAM POSITIVE FL... Complete Vitals/IOs Vital Signs Date Time Temp Pulse Resp B/P (MAP) Pulse Ox O2 Delivery O2 Flow Rate FiO2 08/31/17 06:17 98.1 56 18 90/66 (74) 95 Intake and Output 08/31/17 08/31/17 09/01/17 08:00 16:00 00:00 Intake Total 240 ml 120 ml Balance 240 ml 120 ml Assessment & Plan Problem List: (1) Bipolar disorder ICD Codes: F31.9 - Bipolar disorder, unspecified Status: Chronic Assessment & Plan: Continue current psychotropic regimen. Supportive psychotherapy provided. We will start to coordinate safe discharge plan. Assessment & Plan Estimated LOS: days Justification for Cont. Inpt. Patient still depressed, needs psychiatric hospitalization for stabilization Problem Qualifiers (1) Bipolar disorder: Lele Stanley MD Aug 31, 2017 12:29
[2017-08-31 17:24] VITALS: BP 99/57; PULSE 49; RESP 17; TEMP 97.1; O2SAT 96
[2017-09-01 05:47] VITALS: BP 85/47; PULSE 58; TEMP 98.9; O2SAT 97
[2017-09-01] MEDS: ARIPiprazole 10 MG TAB PO SCH (09:00)
[2017-09-01] MEDS: LITHIUM CARBONATE 450 MG CONTROLLED RELEASE TAB PO SCH ×2 (09:00→20:12)
[2017-09-01] MEDS: PARoxetine HCL 20 MG TAB PO SCH (09:00)
[2017-09-01] MEDS: NICOTINE 21 MG/24 HR PATCH T-DERMAL SCH (09:00)
[2017-09-01] MEDS: REMOVE OLD PATCH T-DERMAL SCH (09:00)
[2017-09-01] MEDS: ACETAMINOPHEN 325 MG TAB PO PRN (09:43)
--- NOTE | 2017-09-01 11:10 | HHI.PYPN ---
Subjective Remarks Patient was seen today for psychiatric reevaluation. She is found in her bed, calm, cooperative, pleasant. She reports that she feels much better. She denies being dizzy, denies weakness. She has been compliant with her medications, no significant side effects. Reports a better mood, denies suicidal and was ideation, she denies visual and auditory hallucinations. She is oriented 3, no attention deficit. She has been more participative in the unit, interacting much better with nurses. Today she requested to have hair done if possible. As per nurses, patient has been doing better, but today has been hypotensive. BP was 85/47. Review of Systems Constitutional: DENIES: Diaphoretic episodes, Fatigue, Fever, Weight gain, Weight loss, Chills, Dizziness, Change in appetite, Night Sweats Endocrine: DENIES: Abnorml menstrual pattern, Heat/cold intolerance, Polydipsia , Polyuria, Polyphagia Eyes: DENIES: Blurred vision, Diplopia, Eye inflammation, Eye pain, Vision loss , Photosensitivity, Double Vision Ears, nose, mouth, throat: DENIES: Tinnitus, Hearing loss, Vertigo, Nasal discharge, Oral lesions, Throat pain, Hoarseness, Ear Pain, Running Nose, Epistaxis, Sinus Pain, Toothache, Odynophagia Respiratory: DENIES: Apneas, Cough, Snoring, Wheezing, Hemoptysis, Sputum production, Shortness of breath Gastrointestinal: DENIES: Abdominal pain, Black stools, Bloody stools, Constipation, Diarrhea, Nausea, Vomiting, Difficulty Swallowing, Anorexia Genitourinary: DENIES: Abnormal vaginal bleeding, Dysmenorrhea, Dyspareunia, Sexual dysfunction, Urinary frequency, Urinary incontinence, Urgency, Hematuria , Dysuria, Nocturia, Vaginal discharge Musculoskeletal: DENIES: Joint pain, Muscle aches, Stiffness, Joint Swelling, Back pain, Neck pain Integumentary: DENIES: Abnormal pigmentation, Pruritus, Rash, Nail changes, Breast masses, Breast skin changes, Nipple discharge Hematologic/lymphatic: DENIES: Bruising, Lymphadenopathy Immunologic/allergic: DENIES: Eczema, Urticaria Neurologic: DENIES: Abnormal gait, Headache, Localized weakness, Paresthesias, Seizures, Speech Problems, Tremor, Poor Balance Psychiatric: DENIES: Anxiety, Confusion, Mood changes, Depression, Hallucinations, Agitation, Suicidal Ideation, Homicidal Ideation, Delusions Mental Status Examination Appearance: Disheveled, Malodorous (Slightly) Consciousness: Alert Orientation: Person, Place (at least) Motor Activity: Other (Ongoing psychomotor retardation) Speech: Slow, Other (Increased speech latency) Language: Adequate Fund of Knowledge: Adequate Attention and Concentration: Other (Poor) Memory: Impaired (On clinical exam) Mood: Sad Affect: Other (Restricted and dysphoric) Thought Process & Associations: Other (Slowed) Thought Content: Other (Vague) Hallucination Type: None Delusion Type: None Suicidal Ideation: No Suicidal Plan: No Suicidal Intention: No Homicidal Ideation: No Homicidal Plan: No Homicidal Intention: No Insight: Fair Judgment: Impulsive Results Labs Date/Time Source Procedure Growth Status 08/07/17 07:00 Blood Peripheral Aerobic Blood Culture - Final NO GROWTH IN 5 DAYS Complete 08/07/17 07:00 Blood Peripheral Anaerobic Blood Culture - Final NO GROWTH IN 5 DAYS Complete 08/18/17 12:38 Urine Clean Catch Urine Culture - Final <10,000 CFU/ML MIXED GRAM POSITIVE FL... Complete Vitals/IOs Vital Signs Date Time Temp Pulse Resp B/P (MAP) Pulse Ox O2 Delivery O2 Flow Rate FiO2 09/01/17 05:47 98.9 58 85/47 (60) 97 08/31/17 17:24 17 Assessment & Plan Problem List: (1) Bipolar disorder ICD Codes: F31.9 - Bipolar disorder, unspecified Status: Chronic Assessment & Plan: Hold morning medications due to hypotension. I will decrease the Paxil to 20 mg the intention to taper this medication down and discontinue. Brief supportive psychotherapy, psychoeducation provided. Assessment & Plan Estimated LOS: days Justification for Cont. Inpt. Patient is severely depressed, needs to continue psychiatric hospitalization for stabilization. Problem Qualifiers (1) Bipolar disorder: Lele Stanley MD Sep 01, 2017 11:10
[2017-09-01] MEDS: ENOXAPARIN SODIUM 40 MG/0.4 ML SYRINGE SQ SCH (12:00)
[2017-09-01 18:05] VITALS: BP 113/68; PULSE 63; RESP 16; TEMP 97.7; O2SAT 99
[2017-09-01] MEDS ORDERED: PARoxetine HCL 20 MG TAB PO SCH (21:00)
[2017-09-02 05:00] VITALS: BP 112/56; PULSE 65; RESP 16; TEMP 99.5; O2SAT 96
[2017-09-02] MEDS: ARIPiprazole 10 MG TAB PO SCH (08:53)
[2017-09-02] MEDS: LITHIUM CARBONATE 450 MG CONTROLLED RELEASE TAB PO SCH (08:53)
[2017-09-02] MEDS: REMOVE OLD PATCH T-DERMAL SCH (09:00)
[2017-09-02] MEDS: NICOTINE 21 MG/24 HR PATCH T-DERMAL SCH (09:00)
[2017-09-02] MEDS ORDERED: LITH450T PO (11:16)
[2017-09-02] MEDS ORDERED: ARIP1TAB12 PO (11:16)
--- NOTE | 2017-09-02 11:34 | HHI.DS ---
Psychiatry Discharge Summary Inpatient Psychiatric care?: Yes Advance Directive: No Reason Not Provided: PT CONFUSED Mental Health AdvanceDirective: No Health Care Proxy: No Admission Admission Date Aug 07, 2017 at 19:50 Admission Diagnosis: (1) Bipolar disorder ICD Code: F31.9 - Bipolar disorder, unspecified Brief History Ms. Penn is a 52 year-old female of uncertain past psychiatric history who presented initially on 08/07/17 under a [place] Act by law enforcement alleging self-care deficit. Patient was initially followed by Dr. Packer and subsequently by Dr. Stanley, and I have reviewed their progress notes. Reviewing the EMR, I see no prior psychiatric contact within our system. Patient seen and examined. Chart reviewed. Patient took between 75-100% of meals yesterday. Sleep was not charted overnight, but sleep duration appears to be generally increasing over this admission. Case discussed with nursing staff. On my examination, I find the patient in her room, lying in bed. I have explained the purpose of my consultation today. She is somewhat reluctant to participate in interview. She presents as extremely negativistic and psychomotor slowed. She is quite disheveled and there is an evident self-care deficit, although nursing staff does relate that the patient did shower today with staff prompting. Mood currently is "okay" but affect is restricted and dysphoric. Anhedonia is present. The patient is noncommittal regarding hopeless/worthless feelings. She denies any suicidal or homicidal ideation presently but seems unreliable to contract for safety. I can elicit no hypomanic or manic symptoms presently. She denies any audiovisual hallucinations. I can elicit no paranoia but the patient is once again somewhat noncommittal regarding feelings of thought manipulation. Patient is unable to tolerate extended interview and asks to be returned to her room. No acute physical complaints. When asked if she would be interested in ECT treatment, patient is once again fairly noncommittal. Past psychiatric history: The patient reports that she is unsure of her previous psychiatric diagnosis. She reports that she has not seen a psychiatrist in several months. She does report previous psychiatric admissions in the past, although I see no record within our system of admissions. She denies a history of suicide attempts. She denies a history of nonsuicidal self-injurious behavior. She denies a history of violent behavior. She has no history of previous treatment with ECT. She is unsure of previous medication trials and cannot recall whether she has been on various medications when I offer the names to her. Family history: The patient does endorse a family history of mental illness although she is not sure of the diagnoses or the people affected. She denies any family history of suicide. Chemical dependency history: The patient denies any abuse of drugs or alcohol. Social history: Patient is vague regarding her living situation. She is single with no children. She is likewise vague regarding her level of education. She denies any access to guns or firearms. She denies any spiritism or spiritual beliefs. She denies any history of abuse or mistreatment. Tobacco Use In Past 30 Days: 5 or More Cigarettes/Day Alcohol Use: Never Hospital Course The patient was admitted in psychiatry due to symptoms of depression and psychosis. Psychiatric and psychosocial assessment were performed. Safety measures were taken. The patient was placed in the bedside due to hypertension , hypokalemia, acute kidney injury. The patient was admitted because she was paranoid against her significant other, try to cut his neck with a knife. Initially the patient was extremely paranoid, completely mute, with a marked blocking thought, psychomotor retardation, internal preoccupation. The patient was a started in a low dose of Abilify, 5 mg daily, Paxil 10 mg. The patient was not responsive to psychotropics for at least 1 week. She remained isolated in the unit, poorly communicative, confused, internally preoccupied, she was not getting out of her bed, urinating and defecating on herself. Vidor 300 mg twice daily was added, posteriorly increased to 450 mg twice daily, lithium level of 0.90 was reached and the patient started to show slow improvement. At some point of the hospitalization the patient was so melancholic, fragile, severely depressed and not responsive to medication that ECT was thought to be the second choice. But, days later the patient started showing a better response to the psychotropic regimen, started improving little by little. Abilify was increased up to 20 mg, Paxil to 40 mg. The patient become more participative in groups and therapies, her affect improved as well as her interaction with peers and staff. At the moment of the discharge the patient is calm, cooperative, with full affect range, denies depressive symptoms, denies anxiety, denies psychosis, she denies suicidal and homicidal ideation, she denies visual and auditory hallucinations. She is logical, coherent and relevant. Her plan is to continue her psychotropic regimen, outpatient follow- ups. Results Blood Pressure 112 / 56 Vital Signs Date Time Temp Pulse Resp B/P (MAP) Pulse Ox O2 Delivery O2 Flow Rate FiO2 09/02/17 05:00 99.5 65 16 112/56 (74) 96 Laboratory Results Test 08/08/17 11:21 08/27/17 13:51 Cholesterol Level 107 MG/DL (120-200) HDL Cholesterol 26.6 MG/DL (40.0-60.0) Hemoglobin A1c 5.9 % (4.3-6.0) LDL Cholesterol 44 MG/DL (0-99) Triglycerides Level 181 MG/DL (42-150) Vidor Level 1.0 MEQ/L (0.5-1.5) Summary of Procedures None Imaging Last Impressions Chest X-Ray 08/08/17 0000 Signed Impressions: Service Date/Time: Tuesday, August 08, 2017 08:13 - CONCLUSION: No acute disease. Simone Short MD Head CT 08/07/17 1252 Signed Impressions: Service Date/Time: Monday, August 07, 2017 14:55 - CONCLUSION: No acute intracranial disease. Donnie Robledo MD Pending results at discharge: No Medications # of Antipsychotic meds at D/C: 1 Appropriate >1 Antipsych meds?: 1 Approp Antipsych med options 1 - Minimum of three failed multiple trials of monotherapy. 2 - Documented plan to taper to monotherapy due to previous use of multiple meds OR cross-taper in progress at D/C. 3 - Documentation of augmentation of Clozapine. 4 - Justification other than those listed in allowable values 1-3, document here : Discharge Discharge Date: Sep 02, 2017 Discharge Diagnosis: (1) Bipolar disorder Diagnosis: Principal ICD Code: F31.9 - Bipolar disorder, unspecified Status: Chronic Pt Condition on Discharge: Stable Discharge Disposition: Discharge Home Discharge Instructions Diet Instructions: As Tolerated, No Restrictions Activities you can perform: Regular-No Restrictions Scheduled Appointment: Franco Lee Discharge Time > 30 minutes Mental Status Examination Appearance: Disheveled, Malodorous (Slightly) Consciousness: Alert Orientation: Person, Place (at least) Motor Activity: Other (Ongoing psychomotor retardation) Speech: Slow, Other (Increased speech latency) Language: Adequate Fund of Knowledge: Adequate Attention and Concentration: Other (Poor) Memory: Impaired (On clinical exam) Mood: Sad Affect: Other (Restricted and dysphoric) Thought Process & Associations: Other (Slowed) Thought Content: Other (Vague) Hallucination Type: None Delusion Type: None Suicidal Ideation: No Suicidal Plan: No Suicidal Intention: No Homicidal Ideation: No Homicidal Plan: No Homicidal Intention: No Insight: Fair Judgment: Impulsive Discharge/Advance Care Plan Health Problems: (1) Bipolar disorder Goals to promote your health * To prevent worsening of your condition and complications * To maintain your health at the optimal level Directions to meet your goals Take your medications as prescribed Follow your dietary instruction Follow activity as directed Keep your appointments as scheduled Take your immunizations and boosters as scheduled If your symptoms worsen call your PCP, if no PCP go to Urgent Care Center or Emergency Room For 24/ questions related to your inpatient stay or results of tests pending at discharge, please contact Dr. Lele Stanley at Smoking is Dangerous to Your Health. Avoid second hand smoking Problem Qualifiers (1) Bipolar disorder: Lele Stanley MD Sep 02, 2017 11:34
[2017-09-02] MEDS: ENOXAPARIN SODIUM 40 MG/0.4 ML SYRINGE SQ SCH (12:15)
== END 2017-09-02 13:00 | disposition home or self-care (01) | DRG 885 ==
LOC: NEPD 04:44 → NEDA 19:50 → H4EA 21:40 → H250 08-23 20:42
PROVIDERS: ADMIT Psychiatry & Neurology Psychiatry; ATTEND Psychiatry & Neurology Psychiatry
DX: F31.5 Bipolar disorder, current episode depressed, severe, with psychotic features (principal); N17.9 Acute kidney failure, unspecified; E87.2 Acidosis; I95.9 Hypotension, unspecified; Z91.14 Patient's other noncompliance with medication regimen; E86.0 Dehydration; E87.6 Hypokalemia; N76.0 Acute vaginitis; I10 Essential (primary) hypertension; F41.9 Anxiety disorder, unspecified; F17.210 Nicotine dependence, cigarettes, uncomplicated; F94.0 Selective mutism; Z81.8 Family history of other mental and behavioral disorders
CPT/HCPCS: 70450; 71045; 80048; 80053; 80061; 80178; 80307; 81001; 82140; 82306; 82607; 83036; 83605; 83735; 84439; 84443; 84480; 85007; 85025; 85027; 87040; 87086; 87491; 87591; 93005; 96361; 96365; J0696; J1650; J7030; J7040; P9612; Q0163